=== PATIENT | female | born 1945 | race Caucasian/White ===

== ENCOUNTER → 2017-06-12 | Outpatient (CLI) | payer MEDICARE ==
--- NOTE | 2017-06-12 10:43 | US ---
EXAMINATION TYPE: US carotid duplex BILAT DATE OF EXAM: 06/12/2017 COMPARISON: NONE CLINICAL HISTORY: R42 dizziness I10 htn. EXAM MEASUREMENTS: RIGHT: Peak Systolic Velocity (PSV) cm/sec ----- Right CCA: 65.5 ----- Right ICA: 85.5 ----- Right ECA: 108.8 ICA/CCA ratio: 1.3 RIGHT: End Diastole cm/sec ----- Right CCA: 12.3 ----- Right ICA: 15.4 ----- Right ECA: 8.3 LEFT: Peak Systolic Velocity (PSV) cm/sec ----- Left CCA: 73.2 ----- Left ICA: 121.4 ----- Left ECA: 124.5 ICA/CCA ratio: 1.7 LEFT: End Diastole cm/sec ----- Left CCA: 15.6 ----- Left ICA: 23.9 ----- Left ECA: 8.9 VERTEBRALS (direction of flow): Right Vertebral: Antegrade Left Vertebral: Antegrade Pulsatile vessels making exam somewhat technically difficult, moderate plaque, no significant stenosi s seen. Grayscale, color Doppler, spectral Doppler imaging performed of the carotid arteries. IMPRESSION: No hemodynamic significant stenosis of the proximal internal carotid arteries bilaterall y by Doppler criteria, an indirect measurement of carotid stenosis
--- NOTE | 2017-06-13 07:03 | ECHOF ---
Referral Reason:R42 dizziness I10 htn MEASUREMENTS -------- HEIGHT: 165.1 cm WEIGHT: 83.9 kg BP: 143/69 RVIDd: 2.3 cm (< 3.3) IVSd: 1.3 cm (0.6 - 1.1) LVIDd: 3.3 cm (3.9 - 5.3) LVPWd: 1.2 cm (0.6 - 1.1) IVSs: 1.7 cm LVIDs: 2.4 cm LVPWs: 1.4 cm LA Diam: 3.1 cm (2.7 - 3.8) LAESV Index (A-L): 14.49 ml/m Ao Diam: 2.9 cm (2.0 - 3.7) AV Cusp: 1.8 cm (1.5 - 2.6) MV EXCURSION: 13.059 mm (> 18.000) MV EF SLOPE: 28 mm/s (70 - 150) EPSS: 0.5 cm MV E Hasmukh: 0.59 m/s MV DecT: 337 ms MV A Hasmukh: 0.94 m/s MV E/A Ratio: 0.63 FINDINGS -------- Sinus rhythm. This was a technically good study. The left ventricular size is normal. There is mild concentric left ventricular hypertrophy. Overall left ventricular systolic function is normal with, an EF between 55 - 60 %. The right ventricle is normal in size and function. Normal LA size by volume 22+/-6 ml/m2. The right atrium is normal in size. There is mild aortic valve sclerosis. Mild mitral annular calcification present. The tricuspid valve appears structurally normal. Trace/mild (physiologic) pulmonic regurgitation. The aortic root size is normal. Normal inferior vena cava with normal inspiratory collapse consistent with estimated right atrial pressure of 5 mmHg. There is no pericardial effusion. CONCLUSIONS -------- 1. Sinus rhythm. 2. Mild mitral annular calcification present. 3. The tricuspid valve appears structurally normal. 4. Trace/mild (physiologic) pulmonic regurgitation. 5. The aortic root size is normal. 6. Normal inferior vena cava with normal inspiratory collapse consistent with estimated right atrial pressure of 5 mmHg. 7. There is no pericardial effusion. 8. This was a technically good study. 9. The left ventricular size is normal. 10. There is mild concentric left ventricular hypertrophy. 11. Overall left ventricular systolic function is normal with, an EF between 55 - 60 %. 12. The right ventricle is normal in size and function. 13. Normal LA size by volume 22+/-6 ml/m2. 14. The right atrium is normal in size. 15. There is mild aortic valve sclerosis. [employer] SUPERVISOR: Lesley Jalloh RDCS
== END | disposition home or self-care (01) ==
LOC: RADECHMAIN 08:27 → EEVIPCON 08:30
PROVIDERS: ATTEND Family Medicine
DX: I34.8 Other nonrheumatic mitral valve disorders (principal); I35.8 Other nonrheumatic aortic valve disorders; I51.7 Cardiomegaly; I10 Essential (primary) hypertension; R53.83 Other fatigue; Z72.0 Tobacco use
CPT/HCPCS: 93306; 93880

== ENCOUNTER → 2017-12-20 | Outpatient (CLI) | payer MEDICARE ==
[2017-12-20 08:47] LABS: Basophils % (A) 0 %; Eosinophils # (A) 0.4 k/uL (0-0.7); Eosinophils % (A) 6 %; HCT 45.3 % (34.0-46.0); HGB 14.7 gm/dL (11.4-16.0); Lymphocytes # (A) 1.8 k/uL (1.0-4.8); Lymphocytes % (A) 27 %; MCH 30.9 pg (25.0-35.0); MCHC 32.5 g/dL (31.0-37.0); MCV 94.9 fL (80.0-100.0); Mean Platelet Volume 8.5; Monocytes # (A) 0.4 k/uL (0-1.0); Monocytes % (A) 6 %; Neutrophils # (A) 4.1 k/uL (1.3-7.7); Neutrophils % (A) 59 %; Platelet Count 213 k/uL (150-450); RBC 4.77 m/uL (3.80-5.40); RDW 13.4 % (11.5-15.5); WBC 6.9 k/uL (3.8-10.6)
[2017-12-20 09:15] LABS: Albumin 4.1 g/dL (3.5-5.0); Calcium 9.7 mg/dL (8.4-10.2); Potassium 4.7 mmol/L (3.5-5.1); Total Bilirubin 0.6 mg/dL (0.2-1.3); Total Protein 7.7 g/dL (6.3-8.2)
--- NOTE | 2017-12-20 10:29 | CT ---
EXAMINATION TYPE: CT abdomen pelvis w con DATE OF EXAM: 12/20/2017 COMPARISON: NONE HISTORY: Change in bowel habits CT DLP: 1010 mGycm CONTRAST: CT scan of the abdomen and pelvis is performed with Oral Contrast and with IV Contrast, patient injec ibis with 100 mL of Isovue 300. FINDINGS: LUNG BASES-: No visible nodule. No infiltrate. LIVER/GB: Cholecystectomy clips noted. No space occupying hepatic lesion. Biliary tree is of shawna l caliber. PANCREAS: No inflammation. No distinct mass. SPLEEN: No splenic enlargement. No lesion seen. ADRENALS: No nodule. No thickening. KIDNEYS/BLADDER: No hydronephrosis. No nephrolithiasis. No distinct renal mass. Urinary bladder g rossly unremarkable. BOWEL: Normal appendix. Normal bowel caliber. No inflammation. Mild fecal stasis. Sigmoid diverticu losis without diverticulitis. GENITAL ORGANS: Nonspecific cyst left ovary measuring 1.7 cm. Uterus and right ovary are unremarkabl e. LYMPH NODES: No greater than 1cm abdominal or pelvic lymph nodes are appreciated. AORTA: No significant abnormality. OSSEOUS STRUCTURES: No significant abnormality is seen. OTHER: No significant additional abnormality is seen. IMPRESSION: 1. Mild fecal stasis. 2. Nonspecific left ovarian cyst. Consider ultrasound correlation.
== END ==
LOC: RADCTMAIN 08:20
PROVIDERS: ATTEND Family Medicine
DX: I10 Essential (primary) hypertension (principal); R19.4 Change in bowel habit; R63.4 Abnormal weight loss; R19.7 Diarrhea, unspecified; N83.202 Unspecified ovarian cyst, left side
CPT/HCPCS: 80061; 80053; 85025; 74177; 36415; Q9967

== ENCOUNTER → 2017-12-25 | Outpatient (CLI) | payer MEDICARE ==
--- NOTE | 2017-12-25 13:18 | XR ---
EXAMINATION TYPE: XR chest 2V DATE OF EXAM: 12/25/2017 COMPARISON: NONE HISTORY: Shortness of breath TECHNIQUE: Frontal and lateral views of the chest are obtained. FINDINGS: Scattered senescent parenchymal changes noted. Hyperinflation compatible with COPD. Right infrahilar density may reflect chronic postinflammatory change. Heart size is stable. Mediastinal structures are stable and grossly unremarkable. No evidence for hilar prominence. Degenerative changes dorsal spine. IMPRESSION: 1. No evidence for acute pulmonary disease.
== END | disposition home or self-care (01) ==
LOC: RADXRMAIN 10:19
PROVIDERS: ATTEND Surgery
DX: Z01.818 Encounter for other preprocedural examination (principal); I48.91 Unspecified atrial fibrillation
CPT/HCPCS: 71046; 93005

== ENCOUNTER → 2018-10-29 | Outpatient (CLI) | payer MEDICARE ==
[2018-10-29 08:45] LABS: Basophils % (A) 1 %; Eosinophils # (A) 0.4 k/uL (0-0.7); Eosinophils % (A) 5 %; HCT 45.8 % (34.0-46.0); HGB 15.3 gm/dL (11.4-16.0); Lymphocytes # (A) 1.9 k/uL (1.0-4.8); Lymphocytes % (A) 27 %; MCH 32.5 pg (25.0-35.0); MCHC 33.4 g/dL (31.0-37.0); MCV 97.4 fL (80.0-100.0); Mean Platelet Volume 8.4; Monocytes # (A) 0.5 k/uL (0-1.0); Monocytes % (A) 6 %; Neutrophils % (A) 57 %; Platelet Count 174 k/uL (150-450); RDW 13.7 % (11.5-15.5); WBC 7.1 k/uL (3.8-10.6)
[2018-10-29 08:59] LABS: Albumin 3.9 g/dL (3.5-5.0); Calcium 9.7 mg/dL (8.4-10.2); Potassium 3.9 mmol/L (3.5-5.1); Total Bilirubin 0.5 mg/dL (0.2-1.3); Total Protein 7.4 g/dL (6.3-8.2)
--- NOTE | 2018-10-29 09:18 | CTL ---
EXAMINATION TYPE: CT Low Dose Lung DATE OF EXAM ORDERED: 10/29/2018 HISTORY: . Lung cancer screening CT DLP: 65.[address] CTDI: 1.8 mGy Automated exposure control for dose reduction was used. SCREENING VISIT: Initial COMPARISON: None TECHNIQUE: Low dose computed tomography scan was performed through the chest at 1 mm thick sections a nd reconstructed images in the coronal plane at [address] DIAGNOSTIC QUALITY: Satisfactory FINDINGS: LUNG NODULES: None. LUNGS: COPD: Severity: Mild Fibrosis: Severity: Mild Lymph nodes: None Other findings: None RIGHT PLEURAL SPACE: Effusion: None Calcification: None Thickening: Minimal pleural thickening is adjacent to old right sixth and seventh rib fractures. 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 Supraclavicular region: Normal Other: The ascending thoracic aorta at the level the main pulmonary artery is 3.3 cm. The main pulmon rhoda artery the bifurcation is 3.2 cm. IMPRESSION: 1. No suspicious changes. 2. Mild increased peripheral lung markings through the bilateral lung wasserman could be some early pulm onary fibrosis. FOLLOW UP CT CHEST RECOMMENDATION: Low-dose CT per screening protocol CT LUNG RAD: Lung-Rad 2 Benign Appearance or Behavior
== END | disposition home or self-care (01) ==
LOC: RADCTMAIN 07:36
PROVIDERS: ATTEND Family Medicine
DX: Z12.2 Encounter for screening for malignant neoplasm of respiratory organs (principal); R91.8 Other nonspecific abnormal finding of lung field; I10 Essential (primary) hypertension; Z87.891 Personal history of nicotine dependence
CPT/HCPCS: 80053; 85025; 36415; G0297

== ENCOUNTER → 2021-01-12 | Outpatient (CLI) | payer MEDICARE ==
--- NOTE | 2021-01-12 14:23 | CTL ---
EXAMINATION TYPE: CT Low Dose Lung DATE OF EXAM ORDERED: 01/12/2021 HISTORY: Long-term tobacco use. Lung cancer screening CT DLP: 78.[address] CTDI: 2.3 mGy Automated exposure control for dose reduction was used. SCREENING VISIT: First step to baseline COMPARISON: Prior low dose lung CT October 29, 2018 TECHNIQUE: Low dose computed tomography scan was performed through the chest at 1 mm thick sections a nd reconstructed images in the coronal plane at [address] DIAGNOSTIC QUALITY: Limited, but interpretable FINDINGS: LUNG NODULES: Present, detailed below: Stable 2 to 3 mm right middle lobe calcified nodule or granuloma axial image 190. Adjacent to this st able nodular consolidation or scarring axial image 186 for reference. Stable 4 mm calcified right upper lung nodule or granuloma axial image 112. Scattered noncalcified pu lmonary micronodules, for reference coronal image 39 series 10 lateral aspect left mid lung correspon ding to axial image 117 LUNGS: COPD: Severity: Mild Fibrosis: Severity: Fairly moderate Lymph nodes: No new greater than 1 cm Other findings: Enlarged pulmonary arteries, CT findings consistent with underlying pulmonary artery hypertension. RIGHT PLEURAL SPACE: Effusion: None Calcification: None Thickening: Stable focal pleural thickening adjacent to the old right lateral seventh and eighth rib fractures. Pneumothorax: None LEFT PLEURAL SPACE: Effusion: None Calcification: None Thickening: None Pneumothorax: None HEART: Heart Size: Normal Coronary calcification: Moderate Pericardial effusion: None OTHER FINDINGS: Upper abdomen: Cholecystectomy clips. Bony thorax: S-shaped scoliotic curvature redemonstrated. Supraclavicular region: None. Other: Mild to moderate calcified plaque of the aorta IMPRESSION: Evidence of old granulomatous disease. Stable scattered small nodules. CT LUNG RAD AND CT CHEST RECOMMENDATION: Lung-Rad 2 Benign Appearance or Behavior: Continue annual sc reening with LDCT in 12 months. S Modifier (other clinically significant findings): None
--- NOTE | 2021-01-16 11:25 | MM ---
Reason for exam: screening (asymptomatic). Last mammogram was performed 5 years and 9 months ago. History: Patient is postmenopausal. Family history of breast cancer in mother. Took estrogen for 6 months. Physical Findings: A clinical breast exam by your physician is recommended on an annual basis and results should be correlated with mammographic findings. MG 3D Screening Mammo W/Cad Bilateral CC and MLO view(s) were taken. Prior study comparison: April 26, 2015, mammogram, performed at [facility]. There are scattered fibroglandular densities. No significant changes when compared with prior studies. ASSESSMENT: Benign, BI-RAD 2 RECOMMENDATION: Routine screening mammogram of both breasts in 1 year.
== END | disposition home or self-care (01) ==
LOC: RADCTMAIN 13:27
PROVIDERS: ATTEND Family Medicine
DX: Z12.31 Encounter for screening mammogram for malignant neoplasm of breast (principal); Z12.2 Encounter for screening for malignant neoplasm of respiratory organs; Z78.0 Asymptomatic menopausal state; Z80.3 Family history of malignant neoplasm of breast
CPT/HCPCS: 71271; 77063; 77067

== ENCOUNTER 2021-02-21 12:55 | Inpatient (IN) | payer MEDICARE ==
[2021-02-21 14:07] LABS: Basophils % (A) 0 %; Eosinophils # (A) 0.2 k/uL (0-0.7); Eosinophils % (A) 3 %; HCT 38.3 % (34.0-46.0); HGB 13.5 gm/dL (11.4-16.0); Lymphocytes # (A) 1.5 k/uL (1.0-4.8); Lymphocytes % (A) 18 %; MCH 33.2 pg (25.0-35.0); MCHC 35.2 g/dL (31.0-37.0); MCV 94.4 fL (80.0-100.0); Mean Platelet Volume 8.9; Monocytes # (A) 0.5 k/uL (0-1.0); Monocytes % (A) 6 %; Neutrophils # (A) 5.8 k/uL (1.3-7.7); Neutrophils % (A) 72 %; Platelet Count 212 k/uL (150-450); RBC 4.06 m/uL (3.80-5.40); RDW 13.3 % (11.5-15.5); WBC 8.1 k/uL (3.8-10.6)
[2021-02-21] MEDS ORDERED: MORPHINE SULFATE 4 MG/ML SYRINGE IVP STA (14:10)
[2021-02-21 14:17] LABS: Potassium 2.9 mmol/L (3.5-5.1)
[2021-02-21 14:18] LABS: Albumin 3.9 g/dL (3.5-5.0); Calcium 9.4 mg/dL (8.4-10.2); Total Bilirubin 0.6 mg/dL (0.2-1.3); Total Protein 6.8 g/dL (6.3-8.2)
[2021-02-21] MEDS ORDERED: SODIUM CHLORIDE 0.9% 500 ML 500 ML IV ONE (14:22)
[2021-02-21] MEDS ORDERED: POTASSIUM CHLORIDE ER 20 MEQ TAB.ER PO STA (14:22)
--- NOTE | 2021-02-21 14:30 | CT ---
EXAMINATION TYPE: CT brain tony lemus DATE OF EXAM: 02/21/2021 COMPARISON: None HISTORY: Fall today. CT DLP: [address] of the brain was performed. The ventricles, basal cisterns and sulci overlying the cerebral convexities demonstrate mild enlargem ent. There is no evidence for intracranial hemorrhage or sulcal effacement. There is decreased attenuatio n about the periventricular white matter and deep white matter of both cerebral hemispheres, compatib le with chronic small vessel ischemia. No mass effects are seen. If symptoms persist consider MRI. Osseous calvarium is intact. IMPRESSION: 1. Age related atrophic and chronic small vessel ischemic change without acute intracranial process seen at this time. CT Cervical Spine: Unenhanced CT of the cervical spine was performed with bone and soft tissue window settings submitted . Coronal and sagittal reconstruction is obtained. There is normal alignment and prevertebral soft tissues. No evidence for acute cervical fracture . Th ere is reversal of the normal cervical lordosis. Scattered degenerative disc disease and spondylosis . Biapical scarring. IMPRESSION: 1. No evidence for acute fracture or subluxation of the cervical spine.
[2021-02-21] MEDS: SODIUM CHLORIDE 0.9% 1,000 ML IV SCH (15:01)
[2021-02-21] MEDS: POTASSIUM CHLORIDE 10 MEQ in WATER FOR INJECTION 1 100ML.BAG IVPB SCH ×2 (15:03→16:11)
--- NOTE | 2021-02-21 15:23 | XR ---
EXAMINATION TYPE: XR elbow complete RT DATE OF EXAM: 02/21/2021 CLINICAL HISTORY: pain TECHNIQUE: Frontal, lateral and oblique images of the right elbow are obtained. COMPARISON: None. FINDINGS: There is no acute fracture/dislocation evident of the elbow. No abnormal fat pad signs ar e seen. The overlying soft tissue appears unremarkable. IMPRESSION: There is no acute fracture or dislocation of the elbow. ICD 10 NO FRACTURE, INITIAL EVALUATION
--- NOTE | 2021-02-21 15:32 | XR ---
EXAMINATION TYPE: XR knee complete RT DATE OF EXAM: 02/21/2021 CLINICAL HISTORY: pain TECHNIQUE: Three views of the right knee are obtained. COMPARISON: None. FINDINGS: There is no acute fracture/dislocation. The tri-compartment joint spaces appear mildly na rrowed. The overlying soft tissue appears unremarkable. IMPRESSION: There is no acute fracture or dislocation.ICD 10 NO FRACTURE, INITIAL EVALUATION
--- NOTE | 2021-02-21 15:35 | XR ---
AP pelvis and right femur HISTORY: Trauma and pain Single frontal view of the pelvis, frontal and lateral views the right femur and 4 images There is a right intertrochanteric proximal femoral fracture with displacement, no dislocation. Patie nt is rotated. Bone mineralization is reduced. Probable vascular calcifications are present within th e pelvis. Degenerative disc changes noted in the lower lumbar spine. There are injection granuloma andrade spected in the gluteal region. impression: Proximal right femoral fracture
[2021-02-21] MEDS ORDERED: NALOXONE 0.4 MG/ML 1 ML VIAL IV PRN (16:12)
--- NOTE | 2021-02-21 16:13 | ED ---
Fall HPI - General Chief Complaint: Fall Stated Complaint: Fall Time Seen by Provider: 02/21/21 13:35 Source: patient Mode of arrival: EMS - History of Present Illness Initial Comments: 75yo female presenting for trip and fall. pt was in parking lot when she tripped over a raised edge. she fell onto right side. denies head injury. she states pain made her nauseated. denies blood thinners. admit to right thigh pain, knee pain. denies UE pain, neck pain, headache, trauma to chest or abdomen, back. patient denies loss of sensation or coolness of extremity. pt states she couldnt put pressure on her right leg after. - Related Data Home Medications Medication Instructions Recorded Confirmed Donepezil HCl [Aricept] 5 mg PO DAILY 02/21/21 02/21/21 Levothyroxine Sodium [Synthroid] 25 mcg PO DAILY 02/21/21 02/21/21 Meclizine [Antivert] 12.5 mg PO DAILY PRN 02/21/21 02/21/21 Meloxicam [Mobic] 15 mg PO DAILY 02/21/21 02/21/21 Pravastatin Sodium 80 mg PO HS 02/21/21 02/21/21 Sertraline [Zoloft] 50 mg PO DAILY 02/21/21 02/21/21 hydroCHLOROthiazide 50 mg PO DAILY 02/21/21 02/21/21 Allergies Allergy/AdvReac Type Severity Reaction Status Date / Time No Known Allergies Allergy Verified 02/21/21 16:42 Review of Systems ROS Statement: Those systems with pertinent positive or pertinent negative responses have been documented in the HPI. ROS Other: All systems not noted in ROS Statement are negative. Past Medical History Past Medical History: Hypertension, Thyroid Disorder History of Any Multi-Drug Resistant Organisms: None Reported Past Surgical History: Cholecystectomy Past Psychological History: No Psychological Hx Reported Smoking Status: Current every day smoker Past Alcohol Use History: None Reported Past Drug Use History: None Reported General Exam Limitations: no limitations Eye exam: Present: normal appearance, PERRL, EOMI ENT exam: Present: normal exam, normal oropharynx, TM's normal bilaterally Neck exam: Present: normal inspection. Absent: tenderness Respiratory exam: Present: normal lung sounds bilaterally Cardiovascular Exam: Present: regular rate, normal rhythm, normal heart sounds GI/Abdominal exam: Present: soft, normal bowel sounds. Absent: distended, tenderness, guarding Rectal exam: Present: deferred Right Hip exam: Present: tenderness Knee exam: Present: tenderness, swelling. Absent: normal inspection Lower Leg exam: Present: normal inspection Ankle exam: Present: normal inspection Foot/Toe exam: Present: normal inspection Course Vital Signs 02/21/21 02/21/21 13:01 14:58 Temperature 98.1 F Pulse Rate 85 75 Respiratory 18 18 Rate Blood Pressure 145/77 124/69 O2 Sat by Pulse 94 L 95 Oximetry Medical Decision Making - Medical Decision Making pt found to have hypokalemia and leonel. pt had right proximal femur fractured. adm itted orthopedic service, Dr. Toure,medicine on consult. patient agreeable to admission. Dr Ahuja spoke with patietn and admitting providers. - Lab Data Result diagrams: 02/21/21 13:51 02/21/21 13:51 Lab Results 02/21/21 02/21/21 02/21/21 Range/Units 13:51 13:51 13:51 WBC 8.1 (3.8-10.6) k/uL RBC 4.06 (3.80-5.40) m/uL Hgb 13.5 (11.4-16.0) gm/dL Hct 38.3 (34.0-46.0) % MCV 94.4 (80.0-100.0) fL MCH 33.2 (25.0-35.0) pg MCHC 35.2 (31.0-37.0) g/dL RDW 13.3 (11.5-15.5) % Plt Count 212 (150-450) k/uL MPV 8.9 Neutrophils % 72 % Lymphocytes % 18 % Monocytes % 6 % Eosinophils % 3 % Basophils % 0 % Neutrophils # 5.8 (1.3-7.7) k/uL Lymphocytes # 1.5 (1.0-4.8) k/uL Monocytes # 0.5 (0-1.0) k/uL Eosinophils # 0.2 (0-0.7) k/uL Basophils # 0.0 (0-0.2) k/uL Sodium 136 L (137-145) mmol/L Potassium 2.9 L (3.5-5.1) mmol/L Chloride 102 (98-107) mmol/L Carbon Dioxide 27 (22-30) mmol/L Anion Gap 7 mmol/L BUN 27 H (7-17) mg/dL Creatinine 1.40 H (0.52-1.04) mg/dL Est GFR (CKD-EPI)AfAm 42 (>60 ml/min/1.73 sqM) Est GFR (CKD-EPI)NonAf 37 (>60 ml/min/1.73 sqM) Glucose 116 H (74-99) mg/dL Calcium 9.4 (8.4-10.2) mg/dL Magnesium 1.5 L (1.6-2.3) mg/dL Total Bilirubin 0.6 (0.2-1.3) mg/dL AST 25 (14-36) U/L ALT 11 (4-34) U/L Alkaline Phosphatase 67 (38-126) U/L Total Protein 6.8 (6.3-8.2) g/dL Albumin 3.9 (3.5-5.0) g/dL Disposition Clinical Impression: Fall, Fracture of proximal end of right femur, Hypokalemia, LEONEL (acute kidney injury) Disposition: ADMITTED IP TO THIS [facility] Condition: Stable Is patient prescribed a controlled substance at d/c from ED?: No Referrals: Esvin Riley MD [Primary Care Provider] - 1-2 days Time of Disposition: 16:12 Decision to Admit Reason: Admit from EC Decision Date: 02/21/21 Decision Time: 16:12
--- NOTE | 2021-02-21 21:16 | XR ---
EXAMINATION TYPE: XR chest 1V portable DATE OF EXAM: 02/21/2021 COMPARISON: 12/25/2017 HISTORY: Preop TECHNIQUE: FINDINGS: There is coarse interstitial density in the lungs. Heart is top normal in size. There is no heart failure. There are no pleural effusions. Thoracic aorta is atheromatous. IMPRESSION: Pulmonary interstitial fibrosis without change. No heart failure seen.
[2021-02-21] MEDS: MORPHINE SULFATE 4 MG/ML SYRINGE IVP PRN (21:53)
[2021-02-21] MEDS: PRAVASTATIN SODIUM 80 MG TAB PO SCH (21:54)
[2021-02-21] MEDS: ENOXAPARIN 40 MG/0.4 ML SYRINGE SQ SCH (21:54)
--- NOTE | 2021-02-21 22:18 | P.CONS ---
History of Present Illness - Reason for Consult Consult date: 02/21/21 Medical management Requesting physician: Bryce Toure - Chief Complaint Right femur fracture - History of Present Illness Consultation: This is a 75-year-old patient, follows with Dr. Riley. Chronic stable medical conditions include hypertension, hypothyroid, chronic nicotine dependence. Patient is walking and tripped falling on the right hip. Taken to the local hospital was found to have right femoral neck fracture. Some bruising on the right elbow. This was purely mechanical fall. Denies any cardiac history. She is able to walk about 2 blocks. Occasionally wheezing from smoking. No prior cardiac history. No chest pain no shortness of breath otherwise. Review of systems: GEN.: None EYES: None HEENT: None NECK: None RESPIRATORY: Mild wheezing CARDIOVASCULAR: None GASTROINTESTINAL: None GENITOURINARY: Urinary stress incontinence] MUSCULOSKELETAL: Joint pains LYMPHATICS: None HEMATOLOGICAL: None PSYCHIATRY: None NEUROLOGICAL: None Past medical history to include: Hypertension, hypothyroid Social history: Smokes a pack a day for close to 60 years. Lives alone. No alcohol. Physical examination: VITAL SIGNS: 98.1, 85, 18, 145/77, 94% room air GENERAL: BMI 26.8, laying in bed, awake. EYES: Pupils equal. Conjunctiva normal. HEENT: External appearance of nose and ears normal, oral cavity grossly normal. NECK: JVD not raised; masses not palpable. HEART: First and second heart sounds are normal; no edema. LUNGS:[ Respiratory rate increased; decreased breath sounds and mild wheezing. ABDOMEN: Soft, nontender, liver spleen not palpable, no masses palpable. PSYCH: Alert and oriented x3; mood and affect normal. MUSCULAR skeletal: Evidence of OA. Right lower extremities externally rotated and short NEUROLOGICAL: Cranial nerves grossly intact; no facial asymmetry, power and sensation grossly intact. LYMPHATICS: No lymph nodes palpable in the axilla and neck INVESTIGATIONS, reviewed in the clinical context: WBC 8.1 hemoglobin 13.5 platelets 212 potassium 2.9 bun 27 creatinine 1.4 magnesia 1.5 Coronavirus [PCR]-not detected Chest x-ray film personally reviewed by me-interstitial fibrosis. Femur x-ray: Right femoral neck fracture. Assessment and plan: -Right femoral neck fracture after patient tripped and fell. -Primary osteoarthritis multiple joints bilateral -Hyperlipidemia Continue pravastatin -Mild cognitive impairment Continue with Aricept -Hypothyroid Continue with Synthroid -COPD in a current smoker *DuoNeb 4 times a day, inhaled steroids -Chronic interstitial pulmonary fibrosis Bronchodilators and inhaled steroids -Chronic nicotine dependence, patient cigarette smoker Nicotine patch Cardiopulmonary perioperative risk assessment: Patient has no active cardiac symptoms. Has a good excess tolerance able to walk about 2 blocks. Patient is a smoker. This is a relatively low bloodloss surgery. This was the patient had mild to-moderate cardiac risk. Patient does not need any further testing except for a baseline EKG. Patient is medically stable to proceed for surgery, discussed with the patient Thank you Dr. Toure Past Medical History Past Medical History: Hypertension, Thyroid Disorder History of Any Multi-Drug Resistant Organisms: None Reported Past Surgical History: Back Surgery, Cholecystectomy, Orthopedic Surgery Past Anesthesia/Blood Transfusion Reactions: No Reported Reaction Past Psychological History: No Psychological Hx Reported Smoking Status: Current every day smoker Past Alcohol Use History: None Reported Past Drug Use History: None Reported - Past Family History Mother Family Medical History: Cancer Additional Family Medical History / Comment(s): Breast Medications and Allergies Home Medications Medication Instructions Recorded Confirmed Type Donepezil HCl [Aricept] 5 mg PO DAILY 02/21/21 02/21/21 History Levothyroxine Sodium [Synthroid] 25 mcg PO DAILY 02/21/21 02/21/21 History Meclizine [Antivert] 12.5 mg PO DAILY PRN 02/21/21 02/21/21 History Meloxicam [Mobic] 15 mg PO DAILY 02/21/21 02/21/21 History Pravastatin Sodium 80 mg PO HS 02/21/21 02/21/21 History Sertraline [Zoloft] 50 mg PO DAILY 02/21/21 02/21/21 History hydroCHLOROthiazide 50 mg PO DAILY 02/21/21 02/21/21 History Allergies Allergy/AdvReac Type Severity Reaction Status Date / Time No Known Allergies Allergy Verified 02/21/21 16:42 Physical Exam Vitals: Vital Signs Temp Pulse Resp BP Pulse Ox 02/21/21 18:46 98.0 F 64 18 105/63 94 L 02/21/21 14:58 75 18 124/69 95 02/21/21 13:01 98.1 F 85 18 145/77 94 L Intake and Output 02/21/21 02/21/21 02/21/21 06:59 14:59 22:59 Other: Weight 72.938 kg 72.938 kg Results CBC & Chem 7: 02/21/21 13:51 02/21/21 13:51 Labs: Abnormal Lab Results - Last 24 Hours (Table) 02/21/21 02/21/21 Range/Units 13:51 13:51 Sodium 136 L (137-145) mmol/L Potassium 2.9 L (3.5-5.1) mmol/L BUN 27 H (7-17) mg/dL Creatinine 1.40 H (0.52-1.04) mg/dL Glucose 116 H (74-99) mg/dL Magnesium 1.5 L (1.6-2.3) mg/dL
[2021-02-21] MEDS: IPRATROPIUM-ALBUTEROL 3 ML NEB INHALATION SCH (23:25)
[2021-02-21] MEDS: BUDESONIDE 1 MG/2 ML NEBU INHALATION SCH (23:25)
[2021-02-22] MEDS: SODIUM CHLORIDE 0.9% 1,000 ML IV SCH ×2 (03:27→20:28)
[2021-02-22] MEDS: LEVOTHYROXINE 25 MCG TAB PO SCH (05:31)
[2021-02-22] MEDS: IPRATROPIUM-ALBUTEROL 3 ML NEB INHALATION SCH ×4 (08:03→19:30)
[2021-02-22] MEDS: BUDESONIDE 1 MG/2 ML NEBU INHALATION SCH ×2 (08:03→19:30)
[2021-02-22] MEDS: SERTRALINE 50 MG TAB PO SCH (08:41)
[2021-02-22] MEDS: DONEPEZIL 5 MG TAB PO SCH (08:41)
[2021-02-22] MEDS: MORPHINE SULFATE 4 MG/ML SYRINGE IVP PRN ×2 (08:41→13:26)
[2021-02-22 12:00] LABS: African American GFR (CKD) 64 (>60 ml/min/1.73 sqM); Anion Gap 3 mmol/L; Blood Urea Nitrogen 16 mg/dL (7-17); Calcium 8.4 mg/dL (8.4-10.2); Carbon Dioxide 27 mmol/L (22-30); Chloride 108 mmol/L (98-107); Glucose 95 mg/dL (74-99); Non-African American GFR(CKD) 55 (>60 ml/min/1.73 sqM); Potassium 3.7 mmol/L (3.5-5.1); Sodium 138 mmol/L (137-145)
[2021-02-22 12:11] LABS: Partial Thromboplastin Time 23.7 sec (22.0-30.0); Prothrombin Time 10.6 sec (9.0-12.0)
--- NOTE | 2021-02-22 12:39 | P.HPOR ---
History of Present Illness H&P Date: 02/22/21 Chief Complaint: Right hip fracture Patient is a pleasant 75 show female seen at bedside this afternoon. She was admitted through the emergency department yesterday, 02/21/2021, evening after falling in a parking lot while she was shopping. She states her grandson pulled on her arm and she lost balance. She developed immediate right hip/leg pain and was transported to the emergency department. X-ray showed intertrochanteric right femur fracture. She continues to have pain at the right hip as expected. She denies any other complaints. She denies numbness or tingling. She denies calf pain. She denies fevers or chills or chest pain. She states she is a smoker. She denies being on blood thinners or diabetic medications. She has no other complaints. Review of Systems All systems: negative Constitutional: Denies chills, Denies fever Eyes: denies blurred vision, denies pain Ears, nose, mouth and throat: Denies headache, Denies sore throat Cardiovascular: Denies chest pain, Denies shortness of breath Respiratory: Denies cough Gastrointestinal: Denies abdominal pain, Denies diarrhea, Denies nausea, Denies vomiting Genitourinary: Denies dysuria, Denies hematuria Musculoskeletal: Denies myalgias Integumentary: Denies pruritus, Denies rash Neurological: Denies numbness, Denies weakness Psychiatric: Denies anxiety, Denies depression Endocrine: Denies fatigue, Denies weight change Past Medical History Past Medical History: Hypertension, Thyroid Disorder History of Any Multi-Drug Resistant Organisms: None Reported Past Surgical History: Back Surgery, Cholecystectomy, Orthopedic Surgery Past Anesthesia/Blood Transfusion Reactions: No Reported Reaction Past Psychological History: No Psychological Hx Reported Smoking Status: Current every day smoker Past Alcohol Use History: None Reported Past Drug Use History: None Reported - Past Family History Mother Family Medical History: Cancer Additional Family Medical History / Comment(s): Breast Medications and Allergies Home Medications Medication Instructions Recorded Confirmed Type Donepezil HCl [Aricept] 5 mg PO DAILY 02/21/21 02/21/21 History Levothyroxine Sodium [Synthroid] 25 mcg PO DAILY 02/21/21 02/21/21 History Meclizine [Antivert] 12.5 mg PO DAILY PRN 02/21/21 02/21/21 History Meloxicam [Mobic] 15 mg PO DAILY 02/21/21 02/21/21 History Pravastatin Sodium 80 mg PO HS 02/21/21 02/21/21 History Sertraline [Zoloft] 50 mg PO DAILY 02/21/21 02/21/21 History hydroCHLOROthiazide 50 mg PO DAILY 02/21/21 02/21/21 History Allergies Allergy/AdvReac Type Severity Reaction Status Date / Time No Known Allergies Allergy Verified 02/21/21 16:42 Physical Examination Inspection of the right lower extremity shows a shortened externally rotated right leg. There are no open wounds, lacerations, erythema or other deformity. Range of motion of the right hip is not tested due to the fracture. She has active range of motion that is painless at the knee, ankle and foot. Neurovascular status appears to be grossly intact throughout the right lower extremity with motor and sensation. Calf is soft and nontender. 2+ dorsalis pedis pulse and less than 2 second capillary refill is present. Results X-rays of the pelvis and right femur show minimally displaced intertrochanteric femur fracture. No fractures at the knee. - Labs Labs: Abnormal Lab Results - Last 24 Hours (Table) 02/21/21 02/21/21 02/22/21 Range/Units 13:51 13:51 11:20 Sodium 136 L (137-145) mmol/L Potassium 2.9 L (3.5-5.1) mmol/L Chloride 108 H (98-107) mmol/L BUN 27 H (7-17) mg/dL Creatinine 1.40 H (0.52-1.04) mg/dL Glucose 116 H (74-99) mg/dL Magnesium 1.5 L (1.6-2.3) mg/dL H & H 02/21/21 Range/Units 13:51 Hgb 13.5 (11.4-16.0) gm/dL Hct 38.3 (34.0-46.0) % Coagulation 02/22/21 Range/Units 11:20 INR 1.0 (<1.2) Result Diagrams: 02/21/21 13:51 02/22/21 11:20 - Diagnostic results Hip x-ray: report reviewed, image reviewed Assessment and Plan (1) Fracture of proximal end of right femur Narrative/Plan: Plan is to proceed with surgical intervention including closed reduction internal fixation of her right proximal femur fracture with a gamma nail and intramedullary hip screw. Patient understands the procedure including possible risks and complications as well as benefits. She desires to proceed. Patient has been reviewed with Dr. Toure. Preoperative clearance has been requested. She has been boarded and plan is to proceed this afternoon 02/22/2021. She'll resume routine postop orthopedic protocol and medical management after surgery and will likely need placement. Current Visit: Yes Status: Acute Code(s): S72.001A - FRACTURE OF UNSP PART OF NECK OF RIGHT FEMUR, INIT SNOMED Code(s): 354434932 Time with Patient: Less than 30
[2021-02-22] MEDS ORDERED: IV FLUID CONTINUATION 1,000 ML IV ONE (14:55)
[2021-02-22] MEDS ORDERED: ONDANSETRON 4 MG/2 ML VIAL ONE ×3 (15:10→15:58)
[2021-02-22] MEDS ORDERED: ONDANSETRON 4 MG/2 ML VIAL IVP ONE (15:11)
[2021-02-22] MEDS ORDERED: LACTATED RINGERS 1,000 ML IV ONE (15:56)
[2021-02-22] MEDS ORDERED: ePHEDrine SULFATE/0.9% NACL/PF 50 MG/5 ML SYRINGE IV ONE (15:58)
[2021-02-22] MEDS ORDERED: MIDAZOLAM 2 MG/2 ML VIAL ONE (15:58)
[2021-02-22] MEDS ORDERED: PHENYLEPHRINE-0.9% NACL SYG 1,000 MCG/10 ML SYRINGE ONE (15:58)
[2021-02-22] MEDS ORDERED: KETAMINE 10 MG/ML 20 ML VIAL ONE (15:58)
[2021-02-22] MEDS ORDERED: fentaNYL (PF) 50 MCG/ML 2 ML AMP ONE (15:58)
[2021-02-22] MEDS ORDERED: SODIUM CHLORIDE 0.9% 100 ML BAG ONE (15:58)
[2021-02-22] MEDS ORDERED: ceFAZolin 1,000 MG in SODIUM CHLORIDE 0.9% 1,000 ML IRRIGATION ONE (16:32)
[2021-02-22] MEDS ORDERED: diazePAM 5 MG TAB PO PRN (16:59)
[2021-02-22] MEDS ORDERED: HYDROmorphone 0.2 MG/1 ML SYRINGE IVP PRN (16:59)
[2021-02-22] MEDS ORDERED: ONDANSETRON 4 MG/2 ML VIAL IVP PRN (16:59)
[2021-02-22] MEDS ORDERED: ACETAMINOPHEN TAB 325 MG TAB PO PRN (16:59)
[2021-02-22] MEDS ORDERED: HYDROmorphone 0.5 MG/0.5 ML SYRINGE IVP PRN (16:59)
[2021-02-22] MEDS ORDERED: HYDROcodone/APAP 5-325MG 1 EACH TAB PO PRN (16:59)
[2021-02-22] MEDS ORDERED: TEMAZEPAM 15 MG CAP PO PRN (16:59)
[2021-02-22] MEDS ORDERED: MAGNESIUM HYDROXIDE 2,400 MG/10 ML CUP PO PRN (16:59)
[2021-02-22] MEDS ORDERED: traMADol 50 MG TAB PO PRN (16:59)
[2021-02-22] MEDS ORDERED: HYDROcodone/APAP 10-325MG 1 EACH TAB PO PRN (16:59)
--- NOTE | 2021-02-22 17:58 | XR ---
EXAMINATION TYPE: XR Hip Limited RT DATE OF EXAM: 02/22/2021 COMPARISON: NONE HISTORY: Postop hip surgery TECHNIQUE: Single view FINDINGS: There is intramedullary manuela and transverse screw fixing the intertrochanteric fracture of t he right femur in anatomic position. There are lateral skin antionette. IMPRESSION: No complicating process seen.
[2021-02-22] MEDS: PRAVASTATIN SODIUM 80 MG TAB PO SCH (20:29)
[2021-02-22] MEDS: ASPIRIN 81 MG PO SCH (20:29)
[2021-02-22] MEDS: ENOXAPARIN 40 MG/0.4 ML SYRINGE SQ SCH (20:29)
[2021-02-22] MEDS ORDERED: SENNOSIDES-DOCUSATE SODIUM 1 EACH TAB PO SCH (21:00)
--- NOTE | 2021-02-22 22:34 | P.PN ---
Progress Note - Text Progress Note Date: 02/22/21 - Chief Complaint Right femur fracture Consultation: This is a 75-year-old patient, follows with Dr. Riley. Chronic stable medical conditions include hypertension, hypothyroid, chronic nicotine dependence. Patient is walking and tripped falling on the right hip. Taken to the local hospital was found to have right femoral neck fracture. Some bruising on the right elbow. This was purely mechanical fall. Denies any cardiac history. She is able to walk about 2 blocks. Occasionally wheezing from smoking. No prior cardiac history. No chest pain no shortness of breath otherwise. Today: Sulfa patient this morning. Pending surgery this afternoon. Pain control. No new issues. Nothing by mouth. Review of systems: Was done for constitutional, cardiovascular, GI, pulmonary. relevant finding as above Active Medications Acetaminophen (Acetaminophen Tab 325 Mg Tab) 650 mg PO Q4HR PRN PRN Reason: Pain Scale 1 to 5 Hydrocodone Bitart/Acetaminophen (Hydrocodone/Apap 5-325mg 1 Each Tab) 1 each PO Q6HR PRN PRN Reason: Pain Scale 1 to 5 Hydrocodone Bitart/Acetaminophen (Hydrocodone/Apap 10-325mg 1 Each Tab) 1 each PO Q6H PRN PRN Reason: Pain Scale 6 to 10 Albuterol/Ipratropium (Ipratropium-Albuterol 3 Ml Neb) 3 ml INHALATION RT-QID [facility] Last Admin: 02/22/21 19:30 Dose: 3 ml Documented by: Aspirin (Aspirin 81 Mg) 81 mg PO BID [facility] Last Admin: 02/22/21 20:29 Dose: 81 mg Documented by: Budesonide (Budesonide 1 Mg/2 Ml Nebu) 1 mg INHALATION RT-BID [facility] Last Admin: 02/22/21 19:30 Dose: 1 mg Documented by: Diazepam (Diazepam 5 Mg Tab) 2.5 mg PO Q8HR PRN PRN Reason: Mild Spasms Donepezil HCl (Donepezil 5 Mg Tab) 5 mg PO DAILY [facility] Last Admin: 02/22/21 08:41 Dose: 5 mg Documented by: Enoxaparin Sodium (Enoxaparin 40 Mg/0.4 Ml Syringe) 40 mg SQ DAILY@2100 [facility] Last Admin: 02/22/21 20:29 Dose: 40 mg Documented by: Famotidine (Famotidine 20 Mg Tab) 20 mg PO DAILY [facility] Hydromorphone HCl (Hydromorphone 0.2 Mg/1 Ml Syringe) 0.2 mg IVP Q3HR PRN PRN Reason: Pain Scale 4 to 6 Hydromorphone HCl (Hydromorphone 0.5 Mg/0.5 Ml Syringe) 0.125 mg IVP Q3HR PRN PRN Reason: Pain Scale 1 to 3 Hydromorphone HCl (Hydromorphone 0.5 Mg/0.5 Ml Syringe) 0.5 mg IVP Q3HR PRN PRN Reason: Pain Scale 7 to 10 Sodium Chloride (Saline 0.9%) 1,000 mls @ 75 mls/hr IV .[id number] [facility] Last Admin: 02/22/21 20:28 Dose: Not Given Documented by: Cefazolin Sodium 2 gm/ Sodium (Chloride) 50 mls @ 100 mls/hr IVPB Q8HR [facility] Stop: 02/23/21 08:29 Levothyroxine Sodium (Levothyroxine 25 Mcg Tab) 25 mcg PO DAILY@0630 [facility] Last Admin: 02/22/21 05:31 Dose: 25 mcg Documented by: Magnesium Hydroxide (Magnesium Hydroxide 2,400 Mg/10 Ml Cup) 2,400 mg PO DAILY PRN PRN Reason: Constipation Morphine Sulfate (Morphine Sulfate 4 Mg/Ml Syringe) 4 mg IVP Q4HR PRN PRN Reason: Pain Last Admin: 02/22/21 13:26 Dose: 4 mg Documented by: Multivitamins (Multivitamins, Thera 1 Each Tab) 1 each PO DAILY@1200 [facility] Naloxone HCl (Naloxone 0.4 Mg/Ml 1 Ml Vial) 0.2 mg IV Q2M PRN PRN Reason: Opioid Reversal Ondansetron HCl (Ondansetron 4 Mg/2 Ml Vial) 4 mg IVP Q8HR PRN PRN Reason: Nausea And Vomiting Pravastatin Sodium (Pravastatin Sodium 80 Mg Tab) 80 mg PO [facility] Last Admin: 02/22/21 20:29 Dose: 80 mg Documented by: Senna/Docusate Sodium (Sennosides-Docusate Sodium 1 Each Tab) 2 each PO HS [facility] Last Admin: 02/22/21 20:29 Dose: 2 each Documented by: Sertraline HCl (Sertraline 50 Mg Tab) 50 mg PO DAILY [facility] Last Admin: 02/22/21 08:41 Dose: 50 mg Documented by: Temazepam (Temazepam 15 Mg Cap) 15 mg PO HS PRN PRN Reason: Insomnia Tramadol HCl (Tramadol 50 Mg Tab) 50 mg PO Q6HR PRN PRN Reason: Pain Scale 1 to 5 Past medical history to include: Hypertension, hypothyroid Social history: Smokes a pack a day for close to 60 years. Lives alone. No alcohol. Physical examination: VITAL SIGNS: 98.4, 70, 16, 103/62, 95% room air GENERAL: BMI 26.8, laying in bed, awake. EYES: Pupils equal. Conjunctiva normal. HEENT: External appearance of nose and ears normal, oral cavity grossly normal. NECK: JVD not raised; masses not palpable. HEART: First and second heart sounds are normal; no edema. LUNGS:[ Respiratory rate increased; decreased breath sounds and mild wheezing. ABDOMEN: Soft, nontender, liver spleen not palpable, no masses palpable. PSYCH: Alert and oriented x3; mood and affect normal. MUSCULAR skeletal: Evidence of OA. Right lower extremities externally rotated and short INVESTIGATIONS, reviewed in the clinical context: February 22: Potassium 2.7 creatinine 1 WBC 8.1 hemoglobin 13.5 platelets 212 potassium 2.9 bun 27 creatinine 1.4 magnesia 1.5 Coronavirus [PCR]-not detected Chest x-ray film personally reviewed by me-interstitial fibrosis. Femur x-ray: Right femoral neck fracture. Assessment and plan: -Right femoral neck fracture after patient tripped and fell. Ending surgery this afternoon -Primary osteoarthritis multiple joints bilateral Pain control as needed -Hyperlipidemia Continue pravastatin -Mild cognitive impairment Continue with Aricept -Hypothyroid Continue with Synthroid -COPD in a current smoker *DuoNeb 4 times a day, inhaled steroids -Chronic interstitial pulmonary fibrosis Bronchodilators and inhaled steroids -Chronic nicotine dependence, patient cigarette smoker Nicotine patch -Acute kidney injury, prerenal creatinine did drop from 1.4-1 -Severe hypokalemia Potassium being replaced Continue current medication treatment plan. Pending surgery this afternoon. Thank you Dr. Toure
[2021-02-23] MEDS: HYDROmorphone 0.5 MG/0.5 ML SYRINGE IVP PRN ×2 (00:37→05:06)
[2021-02-23] MEDS: SODIUM CHLORIDE 0.9% 1,000 ML IV SCH (02:44)
[2021-02-23] MEDS: LEVOTHYROXINE 25 MCG TAB PO SCH (05:06)
[2021-02-23 08:02] VITALS: BP 110/63; PULSE 93; RESP 16; TEMP 98.7
[2021-02-23] MEDS: IPRATROPIUM-ALBUTEROL 3 ML NEB INHALATION SCH ×2 (08:17→11:58)
[2021-02-23] MEDS: BUDESONIDE 1 MG/2 ML NEBU INHALATION SCH (08:17)
--- NOTE | 2021-02-23 08:46 | FL ---
Fluoroscopy and limited right hip HISTORY: Fracture) 56 seconds fluoroscopy time supplied to the referring clinician. 2 intraoperative C-arm images docum ent the procedure. See dictated report from orthopedic surgery.
[2021-02-23] MEDS ORDERED: FAMOTIDINE 20 MG TAB PO SCH (09:00)
[2021-02-23] MEDS: ASPIRIN 81 MG PO SCH (09:41)
[2021-02-23] MEDS: DONEPEZIL 5 MG TAB PO SCH (09:41)
[2021-02-23] MEDS: SERTRALINE 50 MG TAB PO SCH (09:42)
[2021-02-23 09:50] LABS: Basophils # (A) 0.03 X 10*3/uL (0.00-0.10); Basophils % (A) 0.3 %; Eosinophils # (A) 0.18 X 10*3/uL (0.04-0.35); HCT 29.6 % (37.2-46.3); HGB 9.5 g/dL (12.0-15.0); Lymphocytes # (A) 1.34 X 10*3/uL (0.90-5.00); Lymphocytes % (A) 14.6 %; MCH 32.6 pg (27.0-32.0); MCHC 32.1 g/dL (32.0-37.0); MCV 101.7 fL (80.0-97.0); Mean Platelet Volume 12.6 fL (9.5-12.2); Monocytes # (A) 0.95 X 10*3/uL (0.20-1.00); Monocytes % (A) 10.3 %; Neutrophils # (A) 6.61 X 10*3/uL (1.80-7.70); Platelet Count 148 X 10*3/uL (140-440); RBC 2.91 X 10*6/uL (4.10-5.20); RDW 14.1 % (11.5-14.5); WBC 9.18 X 10*3/uL (4.50-10.00)
--- NOTE | 2021-02-23 10:33 | OP ---
OPERATIVE REPORT DATE OF PROCEDURE: 02/22/2021. SURGEON: Bryce Toure MD. MANAGER PHP: Parish MCCONNELL. PREOPERATIVE DIAGNOSIS: Right intertrochanteric hip fracture. POSTOPERATIVE DIAGNOSIS: Right intertrochanteric hip fracture. PROCEDURE PERFORMED: Right intramedullary hip screw fixation for right intertrochanteric hip fracture. ANESTHESIA: Spinal with sedation. ESTIMATED BLOOD LOSS: 50 mL. TOURNIQUET: None. DRAINS: None. COMPLICATIONS: None apparent. DISPOSITION: Postanesthesia care unit. INDICATIONS: Corazon is a very pleasant 75-year-old female who lives independently. Yesterday, she fell at home onto her right hip. She had immediate pain. She was brought via ambulance to [facility]. Workup including x-rays revealed a right intertrochanteric hip fracture. She was admitted to my service. Internal Medicine Service did see her and clear her for surgery. She is an independent ambulator. The decision was made to proceed with intramedullary hip screw fixation for her right intertrochanteric hip fracture. The risks of the procedure were discussed with her in detail. These risks included, but were not limited to risk of infection, nerve damage, bleeding, pain, and a small risk of deep vein thrombosis which could lead to fatal pulmonary embolism. Further risks include failure of the fracture to heal, failure of the hardware and the possibility for deep infection. All of her questions with regard to the risks of procedure were answered to her satisfaction. Appropriate informed consent was obtained. DESCRIPTION OF PROCEDURE: The patient identified in preoperative holding area. Surgical site was marked by both the patient and myself. She was given 2 grams of Ancef IV for prophylactic purposes. She was then transported to the operative suite. She was placed supine on the operating room table. Spinal anesthetic was then administered and dosed per the anesthesia department without apparent complication. She was then placed onto the fracture table well-padded in preparation for surgery. Great care was taken to ensure that her legs were appropriately padded. The fluoroscopy was then brought in and the hip was reduced with traction and rotation. When I was happy with the reduction, we proceeded. The patient's right lower extremity was then prepped and draped in usual sterile fashion. Standard surgical pause was undertaken to ensure that we were operating on the correct site and that appropriate preoperative antibiotics had been given. All staff in the room were in agreement and we proceeded. The tip of the greater trochanter was identified. A 3 cm incision starting at the tip of the greater trochanter extending proximally in line with the shaft of the femur was then made. This dissection was carried down sharply to the tensor fascia. The tensor fascia was then incised in line with the incision. This gave me excellent access to the greater trochanter and proximal femur. The curved awl was then utilized to place the starting pin on the medial aspect of the tip of the greater trochanter and then it was advanced down the center of the shaft of the femur. This was confirmed with fluoroscopic imaging. I then utilized a starting drill to gain access to the proximal femur. The threaded guide pin was then removed and a ball-tipped guidewire was then placed down the shaft of the femur. Again, placement was confirmed via fluoroscopic imaging. I then proceeded to ream the femoral canal. I started with a 9 mm reamer and incrementally increased up to a 13 mm reamer. I had the medical center representative open 180 mm x 11 mm x 125 degree [place] Gamma nail. This was assembled onto the animal laboratory technician on the back table by the nuclear plant instrument technician. The nail was then inserted over the ball-tipped guidewire. The ball-tipped guidewire was removed. The nail was seated within the shaft of the femur. I then proceeded with placement of the hip screw. A second small stab incision was then made on the lateral thigh. The threaded guide pin was then placed in the center through the nail and into the center of the femoral head on both AP and lateral views. The hip-apex distance was appropriate. I then measured for length. The drill was then set to 95 mm. The threaded guide pin was then over-drilled under fluoroscopic imaging. I then had the medical center representative open a 95 mm x 10 mm partially-threaded cannulated hip screw. This was then placed over the threaded guide pin. The hip screw had excellent purchase in bone. It was placed deep into the center of the femoral head. The tip- apex distance was appropriate. The set screw was then placed and then backed off 1/4 turn to allow for compression at the fracture site. I then proceeded with placement of the distal interlocking screw. A third small stab incision was made on the lateral thigh. A 5 mm x 35 mm distal locking screw was then placed through the static portion of the nail. Again this was done under fluoroscopic imaging to ensure of its proper placement and that the screw was of appropriate length. At this point time, I proceeded with final fluoroscopic imaging. The nail was placed in the intramedullary canal. The hip screw was placed through the nail and deep into the center of the femoral head on both AP and lateral views. The tip-apex distance was appropriate and the distal interlocking screw was placed in a static locking fashion and was of appropriate length. At this point time no further work was seemed necessary. The jig was removed from the nail. The wounds were thoroughly irrigated with sterile saline solution with antibiotic added. The tensor fascia was closed with 0 Vicryl interrupted suture. The subcutaneous tissue closed with 2-0 Vicryl interrupted suture. The skin was closed with stainless steel antionette. Sterile dressing was applied. All sponge and needle counts were deemed correct prior to closure. The patient tolerated the procedure without apparent complication. She was transferred to recovery room in stable condition. MMODL / IJN: [id number] /
[2021-02-23] MEDS ORDERED: FERROUS SULFATE 325 MG TAB PO SCH (11:45)
[2021-02-23] MEDS ORDERED: MULTIVITAMINS, THERA 1 EACH TAB PO SCH (12:00)
--- NOTE | 2021-02-23 13:19 | P.DS ---
Providers Date of admission: 02/21/21 16:14 Expected date of discharge: 02/23/21 Attending physician: Bryce Toure Consults: 02/21/21 22:10 Consult Physician Urgent Consulting Provider: Bassem Rees Consult Reason/Comments: medical management Do you want consulting provider notified?: Already Contacted Primary care physician: Esvin Riley - Discharge Diagnosis(es) (1) Fracture of proximal end of right femur Patient was admitted to the OR on 02/22/2021 to undergo closed reduction internal fixation with gamma nail/IM hip screw for right hip IT fracture. She had suffered a fall resulting in fracture of the right hip on 02/21/2021. She desired to proceed with surgery after given informed consent. She underwent the above procedure which she tolerated well without complication. Postoperative hospital course has remained without complication. On day of discharge she is afebrile, vital signs stable, labs within acceptable ranges, tolerating by mouth meds and diet, voiding without difficulty, positive flatus, denies abdominal pain or calf pain, pain is controlled on oral pain medication and has no new complaints. Wound is benign, neurovascular status is intact, calves are soft and nontender, abdomen soft and nontender. Review of systems is negative for numbness, tingling, fever, chills, chest pain, shortness of breath, nausea, vomiting, dizziness, headaches, slurred speech or other. Current Visit: Yes Status: Acute Priority: Medium Procedures: Gamma nail/IM hip screw for right IT hip fracture Patient Condition at Discharge: Good Plan - Discharge Summary Discharge Rx Participant: No New Discharge Prescriptions: New Aspirin [Adult Low Dose Aspirin EC] 81 mg PO BID #60 tablet. Docusate [Colace] 100 mg PO BID #60 capsule HYDROcodone/APAP 7.5-325MG [[place] 7.5-325] 1 tab PO Q4H PRN #42 tab PRN Reason: Pain No Action Meclizine [Antivert] 12.5 mg PO DAILY PRN PRN Reason: DIZZINESS hydroCHLOROthiazide 50 mg PO DAILY Sertraline [Zoloft] 50 mg PO DAILY Pravastatin Sodium 80 mg PO HS Meloxicam [Mobic] 15 mg PO DAILY Levothyroxine Sodium [Synthroid] 25 mcg PO DAILY Donepezil HCl [Aricept] 5 mg PO DAILY Discharge Medication List Donepezil HCl [Aricept] 5 mg PO DAILY 02/21/21 [History] Levothyroxine Sodium [Synthroid] 25 mcg PO DAILY 02/21/21 [History] Meclizine [Antivert] 12.5 mg PO DAILY PRN 02/21/21 [History] Meloxicam [Mobic] 15 mg PO DAILY 02/21/21 [History] Pravastatin Sodium 80 mg PO HS 02/21/21 [History] Sertraline [Zoloft] 50 mg PO DAILY 02/21/21 [History] hydroCHLOROthiazide 50 mg PO DAILY 02/21/21 [History] Aspirin [Adult Low Dose Aspirin EC] 81 mg PO BID #60 tablet. 02/23/21 [Rx] Docusate [Colace] 100 mg PO BID #60 capsule 02/23/21 [Rx] HYDROcodone/APAP 7.5-325MG [[place] 7.5-325] 1 tab PO Q4H PRN #42 tab 02/23/21 [Rx] Follow up Appointment(s)/Referral(s): Esvin Riley MD [Primary Care Provider] - 1-2 days Bryce Toure MD [STAFF PHYSICIAN] - 10 Days Ambulatory/Diagnostic Orders: Walker [DME.AMB1] Location: None Selected Activity/Diet/Wound Care/Special Instructions: Touchdown weightbear with walker at all times keep wound clean and dry take meds as directed F/U in office with Dr. Toure Luz out at POD# 12 Discharge Disposition: TRANSFER TO SNF/ECF
--- NOTE | 2021-02-23 20:56 | P.PN ---
Progress Note - Text Progress Note Date: 02/23/21 - Chief Complaint Right femur fracture Consultation: This is a 75-year-old patient, follows with Dr. Riley. Chronic stable medical conditions include hypertension, hypothyroid, chronic nicotine dependence. Patient is walking and tripped falling on the right hip. Taken to the local hospital was found to have right femoral neck fracture. Some bruising on the right elbow. This was purely mechanical fall. Denies any cardiac history. She is able to walk about 2 blocks. Occasionally wheezing from smoking. No prior cardiac history. No chest pain no shortness of breath otherwise. February 22: Right IM hip screw fixation for right IT hip fracture Today: Laying in bed. Comfortable. Pain control. Did tolerate some breakfast. No chest pain shortness of breath Review of systems: Was done for constitutional, cardiovascular, GI, pulmonary. relevant finding as above Current medications reviewed in today's electronic records Past medical history to include: Hypertension, hypothyroid Social history: Smokes a pack a day for close to 60 years. Lives alone. No alcohol. Physical examination: VITAL SIGNS: 98.7, 93, 16, 110 x 63, 91% room air GENERAL: Sitting up, comfortable EYES: Pupils equal. Conjunctiva normal. NECK: JVD not raised; masses not palpable. HEART: First and second heart sounds are normal; no edema. LUNGS:[ Respiratory rate normal; decreased breath sounds ABDOMEN: Soft, nontender, liver spleen not palpable, no masses palpable. PSYCH: Alert and oriented x3; mood and affect normal. MUSCULAR skeletal: Evidence of OA. Dressing over the right hip INVESTIGATIONS, reviewed in the clinical context: February 23: WBC 9.1 hemoglobin 9.5 platelets 148 February 22: Potassium 2.7 creatinine 1 WBC 8.1 hemoglobin 13.5 platelets 212 potassium 2.9 bun 27 creatinine 1.4 magnesia 1.5 Coronavirus [PCR]-not detected Chest x-ray film personally reviewed by me-interstitial fibrosis. Femur x-ray: Right femoral neck fracture. Assessment and plan: -Right femoral neck fracture after patient tripped and fell.-Followed by IM n scotting Aspirin 81 mg twice a day for DVT prophylaxis -Primary osteoarthritis multiple joints bilateral Pain control as needed -Hyperlipidemia Continue pravastatin -Mild cognitive impairment Continue with Aricept -Hypothyroid Continue with Synthroid -COPD in a current smoker *DuoNeb 3 times a day, inhaled steroids-changed to Pulmicort or discharge -Chronic interstitial pulmonary fibrosis Bronchodilators and inhaled steroids -Chronic nicotine dependence, patient cigarette smoker Nicotine patch -Acute kidney injury, prerenal creatinine did drop from 1.4-1 Received IV fluids -Severe hypokalemia-corrected Potassium being replaced -Acute postprocedure blood loss anemia, expected from surgery Add iron sulfate Stable. Breathing better. Follow-up with Dr. Riley after DC from [facility] Thank you Dr. Toure
== END 2021-02-23 15:32 | DRG 481 ==
LOC: EEVIPCON 12:55 → EC 12:55 → 4SSUR 16:14
PROVIDERS: ADMIT Orthopaedic Surgery Sports Medicine; ATTEND Orthopaedic Surgery Sports Medicine
PROC: 0QSB36Z Reposition Right Lower Femur with Intramedullary Internal Fixation Device, Percutaneous Approach (ICD-10-PCS; principal; 2021-02-22 09:15)
DX: S72.141A Displaced intertrochanteric fracture of right femur, initial encounter for closed fracture (principal); D62 Acute posthemorrhagic anemia; N17.9 Acute kidney failure, unspecified; S50.01XA Contusion of right elbow, initial encounter; W01.0XXA Fall on same level from slipping, tripping and stumbling without subsequent striking against object, initial encounter; Y92.009 Unspecified place in unspecified non-institutional (private) residence as the place of occurrence of the external cause; Y92.481 Parking lot as the place of occurrence of the external cause; M15.9 Polyosteoarthritis, unspecified; J84.10 Pulmonary fibrosis, unspecified; J44.9 Chronic obstructive pulmonary disease, unspecified; I10 Essential (primary) hypertension; Z20.822 Contact with and (suspected) exposure to COVID-19; E03.9 Hypothyroidism, unspecified; E78.5 Hyperlipidemia, unspecified; E87.6 Hypokalemia; F17.210 Nicotine dependence, cigarettes, uncomplicated; G31.84 Mild cognitive impairment of uncertain or unknown etiology; Z79.1 Long term (current) use of non-steroidal anti-inflammatories (NSAID); Z79.890 Hormone replacement therapy; Z79.899 Other long term (current) drug therapy; Z90.49 Acquired absence of other specified parts of digestive tract; Z79.82 Long term (current) use of aspirin
CPT/HCPCS: 36415; 70450; 71045; 72125; 72170; 73501; 73502; 80048; 80053; 83735; 85025; 85610; 85730; 87635; 93005; 94640; 96361; 96374; 96375; 99285

== ENCOUNTER → 2021-06-19 | Outpatient (CLI) | payer MEDICARE ==
--- NOTE | 2021-06-19 13:40 | CT ---
EXAMINATION TYPE: CT abdomen pelvis w con DATE OF EXAM: 06/19/2021 COMPARISON: 12/20/2017 HISTORY: 75-year-old female R19.7, Unspecified diarrhea TECHNIQUE: Contiguous axial scanning of the abdomen and pelvis following administration of 100 ml Iso herb 300 IV contrast. Delayed images through the kidneys and coronal/sagittal reconstructions perform ed. CT DLP: 912 mGycm Automated exposure control for dose reduction was used. FINDINGS: Heart upper limits of normal in size without pericardial effusion. Chronic ununited right posterolate ral rib fracture deformities partially visualized. Combination of emphysema and interstitial changes in the lower lungs. No pleural effusion. Moderate atherosclerotic calcifications throughout the abdominal aorta and iliac arteries with fusifo rm ectasia infrarenal segment of the 2.7 cm. Liver mildly enlarged at 18.8 cm. There is a subtle 1.5 cm hypodensity anterior inferior right liver lobe and 8 mm posteriorly at the same level, refer to axial images 37 and 39. Not clearly seen previo usly. Portal venous system is patent. No biliary ductal dilatation. Cholecystectomy clips. Adrenal glands, right kidney, and pancreas within normal limits. Small calcified granulomas in the spleen. A few cortical cysts in the left kidney measuring up to 2.2 cm. No dilated small bowel, free fluid, or free air. There is moderate pancolonic wall thickening with a some engorgement of the vasa recta. Normal append ix is noted. Oral contrast progressed into the proximal sigmoid. Mild overall stool. Mild sigmoid diverticulosis. Inflammatory changes do not seems centered along this region. Bladder partially distended. Pelvic floor relaxation. Uterus is anteverted. Ovaries are visualized. A 2.2 cm cyst of the left ovary slightly larger from 2.0 cm in 2018. No abnormal fluid collection in the pelvis or pelvic lymphadenopathy. Bones: Osteopenia. Intramedullary nailing with hip screw fixation on the right. Moderate degenerative change both hips. Moderate to advanced degenerative disc disease L4-L5 and L5-S1. Disc osteophyte co mplex contributes to at least a mild spinal canal stenosis with previous left laminotomy at this leve l. IMPRESSION: 1. MODERATE PANCOLONIC WALL THICKENING AND EDEMA. FINDINGS COMPATIBLE WITH INFECTIOUS OR INFLAMMATORY PANCOLITIS. NO ABSCESS OR FREE AIR. 2. A COUPLE LESIONS WITHIN THE INFERIOR RIGHT LIVER LOBE. THESE ARE NOT CLEARLY SEEN PREVIOUSLY AND M EASURE 1.5 CM AND 8 MM. 2 - 3 MONTH FOLLOW-UP CT TO EXCLUDE DEVELOPING NEW LIVER LESIONS INCLUDING TH E POSSIBILITY OF METASTATIC DISEASE. 3. MILD SIGMOID DIVERTICULOSIS. 4. COMBINATION OF COPD AND SOME FIBROSIS IN THE VISUALIZED LOWER LUNGS. 5. A LEFT OVARIAN CYST SHOWS SLIGHT ENLARGEMENT FROM 2018, CURRENTLY AT 2.2 CM VERSUS 2.0 CM, PREVIOU SLY. ANNUAL ULTRASOUND SURVEILLANCE IS RECOMMENDED. 6. MILD PELVIC FLOOR RELAXATION.
== END | disposition home or self-care (01) ==
LOC: RADCTMAIN 09:55
PROVIDERS: ATTEND Family Medicine
DX: K63.89 Other specified diseases of intestine (principal); K76.9 Liver disease, unspecified; K57.30 Diverticulosis of large intestine without perforation or abscess without bleeding; N83.202 Unspecified ovarian cyst, left side
CPT/HCPCS: 82565; 84520; 74177; 36415; Q9967

== ENCOUNTER 2022-08-28 17:57 | Emergency (ER) | payer MEDICARE ==
[2022-08-28 18:05] VITALS: RESP 18
--- NOTE | 2022-08-28 21:10 | ED ---
Female Urogenital HPI - General Chief complaint: Urogenital Stated complaint: urogenital, diarrhea Time Seen by Provider: 08/28/22 20:59 Source: patient, RN notes reviewed Mode of arrival: EMS Limitations: no limitations - History of Present Illness Initial comments: Patient is a 77-year-old female presenting to the emergency department with her guardian at the direction of her primary care provider in regards to increased urinary frequency, burning with urination and increase in chronic diarrhea. She also reports pain to her buttocks region from her urinary and stool frequency. She denies any abdominal pain not related to pressure for fr equent urination and cramping from frequent diarrhea, nausea, vomiting, chest pain, shortness of breath, fevers or chills. She is a poor historian. In addition to her chronic diarrhea she has a past medical history of pulmonary fibrosis, COPD, bowel and bladder incontinence, hypothyroidism, and mild cognitive impairment. - Related Data Home Medications Medication Instructions Recorded Confirmed Donepezil HCl [Aricept] 5 mg PO DAILY 02/21/21 05/16/22 Levothyroxine Sodium [Synthroid] 25 mcg PO DAILY 02/21/21 05/16/22 Atorvastatin Calcium [Lipitor] 80 mg PO HS 05/16/22 05/16/22 Omeprazole [PriLOSEC] 20 mg PO AC-BRKFST 05/16/22 05/16/22 Ondansetron Odt [Zofran ODT] 4 mg PO DAILY PRN 05/16/22 05/16/22 Potassium Chloride [Klor-Con M20] 20 meq PO DAILY 05/16/22 05/16/22 traZODone HCL [Desyrel] 50 mg PO HS PRN 05/16/22 05/16/22 Previous Rx's Medication Instructions Recorded Aspirin 81 mg PO DAILY tab 05/21/22 Enoxaparin [Lovenox] 40 mg SQ DAILY each 05/21/22 Ertapenem [INVanz] 1 gm IVPB DAILY 10 Days #10 each 05/21/22 Ipratropium-Albuterol Nebulize 3 ml INHALATION TID each 05/21/22 [Duoneb 0.5 mg-3 mg/3 ml Soln] Nitroglycerin Sl Tabs [Nitrostat] 0.4 mg SUBLINGUAL Q5M PRN tab 05/21/22 Sodium Bicarbonate 325 mg PO DAILY 3 Days #3 tablet 08/28/22 Sulfamethox-Tmp 800-160Mg [Bactrim 1 tab PO Q12HR 7 Days #14 tab 08/28/22 DS 800-160 mg] Allergies Allergy/AdvReac Type Severity Reaction Status Date / Time No Known Allergies Allergy Verified 08/28/22 18:05 Review of Systems ROS Statement: Those systems with pertinent positive or pertinent negative responses have been documented in the HPI. ROS Other: All systems not noted in ROS Statement are negative. Past Medical History Past Medical History: COPD, Hypertension, Thyroid Disorder Additional Past Medical History / Comment(s): Pulmonary fibrosis, benign colon polyps, bowel incontinence, hypothyroid, protein calorie malnutrition, mild cognitive impairment on Aricept with guardian History of Any Multi-Drug Resistant Organisms: ESBL Date of last positivie culture/infection: 05/16/22 MDRO Source:: ESBL URINE Past Surgical History: Back Surgery, Cholecystectomy, Orthopedic Surgery Additional Past Surgical History / Comment(s): R hip gamma nail/plate, R shoulder fracture with surgery with pins, colonoscopies, bilateral cataract marques vals/lens implants. Past Anesthesia/Blood Transfusion Reactions: No Reported Reaction Past Psychological History: No Psychological Hx Reported Smoking Status: Current every day smoker Past Alcohol Use History: None Reported Past Drug Use History: None Reported - Past Family History Mother Family Medical History: Cancer Additional Family Medical History / Comment(s): Breast Father Family Medical History: Eye Disorder Additional Family Medical History / Comment(s): Father went blind as a adult, cause unknown. General Exam Limitations: altered mental status (Mild cognitive delay and poor historian with legal guardian) General appearance: alert, in no apparent distress Head exam: Present: atraumatic, normocephalic, normal inspection Eye exam: Present: normal appearance, PERRL, EOMI. Absent: scleral icterus, conjunctival injection, periorbital swelling ENT exam: Present: normal exam, mucous membranes moist Neck exam: Present: normal inspection, full ROM Respiratory exam: Present: normal lung sounds bilaterally. Absent: respiratory distress, wheezes, rales, rhonchi, stridor Cardiovascular Exam: Present: regular rate, normal rhythm, normal heart sounds. Absent: systolic murmur, diastolic murmur, rubs, gallop, clicks GI/Abdominal exam: Present: soft, normal bowel sounds. Absent: distended, tenderness, guarding, rebound, rigid Rectal exam: Present: hemorrhoids (External noninflamed) External exam: Present: erythema Extremities exam: Present: normal inspection. Absent: tenderness, pedal edema, joint swelling Back exam: Present: normal inspection. Absent: CVA tenderness (R), CVA tenderness (L) Neurological exam: Present: alert, oriented X3, CN II-XII intact Psychiatric exam: Present: normal affect, normal mood Skin exam: Present: other (Buttock with diffuse blanchable erythema near and several small air areas of broken skin. Consistent with chronic moisture present.) Course Vital Signs 08/28/22 18:01 Temperature 97.2 F L Pulse Rate 75 Respiratory 18 Rate Blood Pressure 120/55 O2 Sat by Pulse 100 Oximetry Medical Decision Making - Medical Decision Making 77-year-old female presenting to the emergency room with complaint of urinary frequency and pain with urination along with worsening chronic diarrhea with pain in the perineal area from excessive incontinence. Incontinence and diarrhea not significantly changed from baseline. No indication for IV hydration, pain medication or IV antibiotics at this time. Will obtain CBC, BMP along with urinalysis. Doubt viral etiology for diarrhea however will obtain swab for COVID, RSV and influenza. Abdominal assessment benign with chronic diarrhea no indication for diagnostic imaging of the abdomen. CBC unremarkable. BMP with elevated chloride and low bicarb consistent with chronic GI loss. Creatinine elevated with normal BUN baseline creatinine normal. CO2 16 will give oral dose of bicarbonate 650 mg. UTI noted with a history of ESBL susceptible to multiple oral antibiotics. Swabs for COVID, influenza flu an d RSV negative. Due to elevated creatinine with baseline of normal and UTI will obtain ultrasound of the kidneys and bladder. Ultrasound of kidneys and bladder image intervertebral me showing no hydr onephrosis. Multiple left renal cysts noted. Will discharge patient home in stable condition with Bactrim. No indication for renal he doses GFR greater than 30. Will give oral bicarbonate daily and advise close follow-up with primary care provider for repeat laboratory studies. Encouraged good perineal care and regular changing of incontinence pads and dependence. Case discussed with Dr. Coomsb. - Lab Data Result diagrams: 08/28/22 21:30 08/28/22 21:30 Lab Results 08/28/22 08/28/22 08/28/22 Range/Units 21:25 21:30 21:30 WBC 8.6 (3.8-10.6) k/uL RBC 4.14 (3.80-5.40) m/uL Hgb 13.2 (11.4-16.0) gm/dL Hct 38.3 (34.0-46.0) % MCV 92.4 (80.0-100.0) fL MCH 31.9 (25.0-35.0) pg MCHC 34.5 (31.0-37.0) g/dL RDW 14.6 (11.5-15.5) % Plt Count 180 (150-450) k/uL MPV 9.8 Neutrophils % 64 % Lymphocytes % 26 % Monocytes % 5 % Eosinophils % 3 % Basophils % 0 % Neutrophils # 5.5 (1.3-7.7) k/uL Lymphocytes # 2.3 (1.0-4.8) k/uL Monocytes # 0.4 (0-1.0) k/uL Eosinophils # 0.3 (0-0.7) k/uL Basophils # 0.0 (0-0.2) k/uL Sodium 136 L (137-145) mmol/L Potassium 4.0 (3.5-5.1) mmol/L Chloride 115 H (98-107) mmol/L Carbon Dioxide 16 L (22-30) mmol/L Anion Gap 5 mmol/L BUN 14 (7-17) mg/dL Creatinine 1.32 H (0.52-1.04) mg/dL Est GFR (CKD-EPI)AfAm 45 (>60 ml/min/1.73 sqM) Est GFR (CKD-EPI)NonAf 39 (>60 ml/min/1.73 sqM) Glucose 95 (74-99) mg/dL Calcium 8.8 (8.4-10.2) mg/dL Urine Color Light Yellow Urine Appearance Turbid H (Clear) Urine pH 5.5 (5.0-8.0) Ur Specific [place] 1.014 (1.001-1.035) Urine Protein 1+ H (Negative) Urine Glucose (UA) Negative (Negative) Urine Ketones Negative (Negative) Urine Blood Small H (Negative) Urine Nitrite Positive H (Negative) Urine Bilirubin Negative (Negative) Urine Urobilinogen <2.0 (<2.0) mg/dL Ur Leukocyte Esterase Large H (Negative) Urine RBC 8 H (0-5) /hpf Urine WBC >182 H (0-5) /hpf Urine WBC Clumps Few H (None) /hpf Ur Squamous Epith Cells 11 H (0-4) /hpf Urine Bacteria Moderate H (None) /hpf Urine Mucus Rare H (None) /hpf Influenza Type A (PCR) (Not Detectd) Influenza Type B (PCR) (Not Detectd) RSV (PCR) (Not Detectd) SARS-CoV-2 (PCR) (Not Detectd) 08/28/22 Range/Units 21:34 WBC (3.8-10.6) k/uL RBC (3.80-5.40) m/uL Hgb (11.4-16.0) gm/dL Hct (34.0-46.0) % MCV (80.0-100.0) fL MCH (25.0-35.0) pg MCHC (31.0-37.0) g/dL RDW (11.5-15.5) % Plt Count (150-450) k/uL MPV Neutrophils % % Lymphocytes % % Monocytes % % Eosinophils % % Basophils % % Neutrophils # (1.3-7.7) k/uL Lymphocytes # (1.0-4.8) k/uL Monocytes # (0-1.0) k/uL Eosinophils # (0-0.7) k/uL Basophils # (0-0.2) k/uL Sodium (137-145) mmol/L Potassium (3.5-5.1) mmol/L Chloride (98-107) mmol/L Carbon Dioxide (22-30) mmol/L Anion Gap mmol/L BUN (7-17) mg/dL Creatinine (0.52-1.04) mg/dL Est GFR (CKD-EPI)AfAm (>60 ml/min/1.73 sqM) Est GFR (CKD-EPI)NonAf (>60 ml/min/1.73 sqM) Glucose (74-99) mg/dL Calcium (8.4-10.2) mg/dL Urine Color Urine Appearance (Clear) Urine pH (5.0-8.0) Ur Specific [place] (1.001-1.035) Urine Protein (Negative) Urine Glucose (UA) (Negative) Urine Ketones (Negative) Urine Blood (Negative) Urine Nitrite (Negative) Urine Bilirubin (Negative) Urine Urobilinogen (<2.0) mg/dL Ur Leukocyte Esterase (Negative) Urine RBC (0-5) /hpf Urine WBC (0-5) /hpf Urine WBC Clumps (None) /hpf Ur Squamous Epith Cells (0-4) /hpf Urine Bacteria (None) /hpf Urine Mucus (None) /hpf Influenza Type A (PCR) Not Detected (Not Detectd) Influenza Type B (PCR) Not Detected (Not Detectd) RSV (PCR) Not Detected (Not Detectd) SARS-CoV-2 (PCR) Not Detected (Not Detectd) - Radiology Data Radiology results: report reviewed, image reviewed Ultrasound of kidneys renal and bladder impression by radiologist there are simple left-sided renal cortical cyst. No evidence of renal masses or obstruction. No evidence of bladder mass. No adverse changes compared to old exam. Largest cyst 2.4 x 2.2 x 2.2 cm in the inferior pole of left kidney. Disposition Clinical Impression: Urinary tract infection, Chronic diarrhea, Low bicarbonate level Disposition: HOME SELF-CARE Condition: Stable Instructions (If sedation given, give patient instructions): Urinary Tract Infection in Women (ED) Additional Instructions: Please complete course of antibiotic as prescribed. Please take sodium bicarbonate once a day as prescribed for the next 3 days and follow-up with your primary care provider in the next 1-3 days for repeat laboratory testing. Good perineal care with regular changing of incontinence pads encouraged. Please return to the Emergency Department if symptoms worsen or any other concerns. Prescriptions: Sulfamethox-Tmp 800-160Mg [Bactrim DS 800-160 mg] 1 tab PO Q12HR 7 Days #14 tab Sodium Bicarbonate 325 mg PO DAILY 3 Days #3 tablet Is patient prescribed a controlled substance at d/c from ED?: No Referrals: Esvin Riley MD [Primary Care Provider] - 1-2 days Time of Disposition: 23:27
[2022-08-28 21:42] LABS: Basophils % (A) 0 %; Eosinophils # (A) 0.3 k/uL (0-0.7); Eosinophils % (A) 3 %; HCT 38.3 % (34.0-46.0); HGB 13.2 gm/dL (11.4-16.0); Lymphocytes # (A) 2.3 k/uL (1.0-4.8); Lymphocytes % (A) 26 %; MCH 31.9 pg (25.0-35.0); MCHC 34.5 g/dL (31.0-37.0); MCV 92.4 fL (80.0-100.0); Mean Platelet Volume 9.8; Monocytes # (A) 0.4 k/uL (0-1.0); Monocytes % (A) 5 %; Neutrophils # (A) 5.5 k/uL (1.3-7.7); Neutrophils % (A) 64 %; Platelet Count 180 k/uL (150-450); RBC 4.14 m/uL (3.80-5.40); RDW 14.6 % (11.5-15.5); WBC 8.6 k/uL (3.8-10.6)
[2022-08-28 21:54] LABS: Appearance,Urine Turbid (Clear); Bacteria,Urine Moderate /hpf; Bilirubin,Urine Negative (Negative); Blood,Urine Small (Negative); Color,Urine Light Yellow; Glucose,Urine (UA) Negative (Negative); Ketones,Urine Negative (Negative); Leukocyte Esterase,Urine Large (Negative); Mucus,Urine Rare /hpf; Nitrite,Urine Positive (Negative); PH, Urine 5.5 (5.0-8.0); Protein,Urine 1+ (Negative); RBC,Urine 8 /hpf (0-5); Specific Gravity,Urine 1.014 (1.001-1.035); Squamous Epithelial Cell,Urine 11 /hpf (0-4); Urobilinogen,Urine <2.0 mg/dL (<2.0); WBC,Urine >182 /hpf (0-5)
[2022-08-28 21:54] LABS: Calcium 8.8 mg/dL (8.4-10.2)
[2022-08-28] MEDS ORDERED: SODIUM BICARBONATE TAB 650 MG TAB PO STA (21:56)
--- NOTE | 2022-08-28 23:11 | US ---
EXAMINATION TYPE: US kidneys/renal and bladder DATE OF EXAM: 08/28/2022 COMPARISON: 05/18/22 CLINICAL HISTORY: elevated cr with uti. elevated creatinine with uti EXAM MEASUREMENTS: Right Kidney: 9.5 x 5.9 x 4.2 cm Left Kidney: 7.5 x 3.9 x 3.9 cm Right Kidney: No hydronephrosis or masses seen Left Kidney: Multiple cysts seen. Largest = 2.4 x 2.2 x 2.2cm in inferior pole Bladder: wnl Bilateral Jets seen: Could not visualize due to bowel gas IMPRESSION: There are simple left-sided renal cortical cysts. No evidence of renal mass or obstruction. No eviden ce of a bladder mass. No adverse change compared to the old exam.
[2022-08-29 00:31] VITALS: BP 130/70; PULSE 71; TEMP 97.6
== END 2022-08-29 00:31 | disposition home or self-care (01) ==
LOC: EC 17:57
DX: N28.1 Cyst of kidney, acquired (principal); R19.7 Diarrhea, unspecified; E87.8 Other disorders of electrolyte and fluid balance, not elsewhere classified; J44.9 Chronic obstructive pulmonary disease, unspecified; I10 Essential (primary) hypertension; E03.9 Hypothyroidism, unspecified; F17.200 Nicotine dependence, unspecified, uncomplicated; Z79.890 Hormone replacement therapy; Z79.899 Other long term (current) drug therapy; Z90.49 Acquired absence of other specified parts of digestive tract; Z20.822 Contact with and (suspected) exposure to COVID-19
CPT/HCPCS: 36415; 76770; 80048; 81001; 85025; 87086; 87636; 99284

== ENCOUNTER 2022-09-01 14:05 | Emergency (ER) | payer MEDICARE ==
[2022-09-01 14:13] VITALS: BP 138/63; PULSE 73; RESP 20; TEMP 98.6
--- NOTE | 2022-09-01 14:22 | ED ---
General Adult HPI - General Stated complaint: Fall Time Seen by Provider: 09/01/22 14:05 Source: patient, EMS, RN notes reviewed, old records reviewed - History of Present Illness Initial comments: This is a 77-year-old female presents emergency Department complaining of left shoulder pain. Patient presents via ambulance. Patient states she just lost her balance upon her shoulder. Patient denies any head trauma patient denies any neck pain. Patient denies numbness weakness. Patient states she can move her shoulder but she's not able to raise above horizontal which is abnormal for her. Patient denies any chest pain or back pain. Patient has a large cavity pain. Patient denies any other complaints besides shoulder pain. I also took some of the history from EMS. - Related Data Home Medications Medication Instructions Recorded Confirmed Donepezil HCl [Aricept] 5 mg PO DAILY 02/21/21 05/16/22 Levothyroxine Sodium [Synthroid] 25 mcg PO DAILY 02/21/21 05/16/22 Atorvastatin Calcium [Lipitor] 80 mg PO HS 05/16/22 05/16/22 Omeprazole [PriLOSEC] 20 mg PO AC-BRKFST 05/16/22 05/16/22 Ondansetron Odt [Zofran ODT] 4 mg PO DAILY PRN 05/16/22 05/16/22 Potassium Chloride [Klor-Con M20] 20 meq PO DAILY 05/16/22 05/16/22 traZODone HCL [Desyrel] 50 mg PO HS PRN 05/16/22 05/16/22 Previous Rx's Medication Instructions Recorded Aspirin 81 mg PO DAILY tab 05/21/22 Enoxaparin [Lovenox] 40 mg SQ DAILY each 05/21/22 Ertapenem [INVanz] 1 gm IVPB DAILY 10 Days #10 each 05/21/22 Ipratropium-Albuterol Nebulize 3 ml INHALATION TID each 05/21/22 [Duoneb 0.5 mg-3 mg/3 ml Soln] Nitroglycerin Sl Tabs [Nitrostat] 0.4 mg SUBLINGUAL Q5M PRN tab 05/21/22 Sodium Bicarbonate 325 mg PO DAILY 3 Days #3 tablet 08/28/22 Sulfamethox-Tmp 800-160Mg [Bactrim 1 tab PO Q12HR 7 Days #14 tab 08/28/22 DS 800-160 mg] Allergies Allergy/AdvReac Type Severity Reaction Status Date / Time No Known Allergies Allergy Verified 09/01/22 14:13 Review of Systems ROS Statement: Those systems with pertinent positive or pertinent negative responses have been documented in the HPI. ROS Other: All systems not noted in ROS Statement are negative. Past Medical History Past Medical History: COPD, Hypertension, Thyroid Disorder Additional Past Medical History / Comment(s): Pulmonary fibrosis, benign colon polyps, bowel incontinence, hypothyroid, protein calorie malnutrition, mild cognitive impairment on Aricept with guardian History of Any Multi-Drug Resistant Organisms: ESBL Date of last positivie culture/infection: 05/16/22 MDRO Source:: ESBL URINE Past Surgical History: Back Surgery, Cholecystectomy, Orthopedic Surgery Additional Past Surgical History / Comment(s): R hip gamma nail/plate, R shoulder fracture with surgery with pins, colonoscopies, bilateral cataract removals/lens implants. Past Anesthesia/Blood Transfusion Reactions: No Reported Reaction Past Psychological History: No Psychological Hx Reported Smoking Status: Current every day smoker Past Alcohol Use History: None Reported Past Drug Use History: None Reported - Past Family History Mother Family Medical History: Cancer Additional Family Medical History / Comment(s): Breast Father Family Medical History: Eye Disorder Additional Family Medical History / Comment(s): Father went blind as a adult, cause unknown. General Exam - General Exam Comments Initial Comments: GENERAL Patient is well-developed and well-nourished. Patient is in mild distress. EYES Patient's pupils are equal and round. Extraocular motion is intact SKIN Unremarkable NEURO The patient is alert and oriented 3 PYSCH Patient has normal interpersonal interactions. MUSCULOSKELETAL Shoulder has some tenderness in the lateral aspect however she was able to lift the shoulder arm to horizontal but after that the pain became too much she was unable to move further. Course Vital Signs 09/01/22 14:11 Temperature 98.6 F Pulse Rate 73 Respiratory 20 Rate Blood Pressure 138/63 O2 Sat by Pulse 96 Oximetry Medical Decision Making - Medical Decision Making X-ray of the shoulder was interpreted by me. There is no acute abnormality. No fracture noted Disposition Clinical Impression: Fall, Shoulder strain Disposition: HOME SELF-CARE Condition: Good Instructions (If sedation given, give patient instructions): Fall Prevention fo r Older Adults (ED) Additional Instructions: Patient should take Motrin and Tylenol when necessary for pain every 6 hours when necessary for pain Is patient prescribed a controlled substance at d/c from ED?: No Referrals: Esvin Riley MD [Primary Care Provider] - 1-2 days Time of Disposition: 14:54
--- NOTE | 2022-09-01 14:54 | XR ---
EXAMINATION TYPE: XR shoulder complete LT DATE OF EXAM: 09/01/2022 COMPARISON: NONE HISTORY: Fall. Pain TECHNIQUE: 4 views FINDINGS: The glenohumeral joint is intact. I see no fracture nor dislocation. There is mild spurring at the greater tuberosity of the humerus. Scapula appears intact IMPRESSION: No acute abnormality of the left shoulder.
== END 2022-09-01 15:16 | disposition home or self-care (01) ==
LOC: EC 14:05
DX: S46.912A Strain of unspecified muscle, fascia and tendon at shoulder and upper arm level, left arm, initial encounter (principal); J44.9 Chronic obstructive pulmonary disease, unspecified; I10 Essential (primary) hypertension; E07.9 Disorder of thyroid, unspecified; F17.200 Nicotine dependence, unspecified, uncomplicated; Z79.890 Hormone replacement therapy; Z79.899 Other long term (current) drug therapy; W18.30XA Fall on same level, unspecified, initial encounter
CPT/HCPCS: 99284

== ENCOUNTER 2022-09-02 15:28 | Inpatient (IN) | payer MEDICARE ==
--- NOTE | 2022-09-02 17:22 | XR ---
EXAMINATION TYPE: XR femur LT DATE OF EXAM: 09/02/2022 COMPARISON: NONE HISTORY: Pain TECHNIQUE: 4 views FINDINGS: There is some osteopenia. Hip joint is intact. The knee joint is intact. No sign of any stan nt effusion. No fracture nor dislocation. IMPRESSION: Negative left femur exam. No fracture.
--- NOTE | 2022-09-02 17:26 | XR ---
EXAMINATION TYPE: XR knee complete LT DATE OF EXAM: 09/02/2022 COMPARISON: NONE HISTORY: Pain TECHNIQUE: 3 views FINDINGS: There is no evidence of fracture nor dislocation. Joint spaces are normal. No sign of joint effusion. IMPRESSION: Negative left knee exam. No fracture.
--- NOTE | 2022-09-02 17:27 | XR ---
EXAMINATION TYPE: XR tibia fibula LT DATE OF EXAM: 09/02/2022 COMPARISON: NONE HISTORY: Pain TECHNIQUE: 4 views FINDINGS: The tibia and fibula appear intact. No fracture seen. Ankle joint and knee joint appear int act. IMPRESSION: Negative left tibia and fibula exam. No fracture. Small Achilles calcaneal spur noted.
[2022-09-02] MEDS ORDERED: KETOROLAC 15 MG/ML 1 ML VIAL IM STA (17:53)
[2022-09-02] MEDS ORDERED: NALOXONE 0.4 MG/ML 1 ML VIAL IV PRN (18:48)
[2022-09-02 18:51] LABS: Basophils % (A) 0 %; Eosinophils # (A) 0.6 k/uL (0-0.7); Eosinophils % (A) 11 %; HCT 36.5 % (34.0-46.0); HGB 12.8 gm/dL (11.4-16.0); Lymphocytes # (A) 0.3 k/uL (1.0-4.8); Lymphocytes % (A) 5 %; MCH 32.2 pg (25.0-35.0); MCHC 35.2 g/dL (31.0-37.0); MCV 91.6 fL (80.0-100.0); Mean Platelet Volume 10.7; Monocytes # (A) 0.3 k/uL (0-1.0); Monocytes % (A) 6 %; Neutrophils # (A) 4.1 k/uL (1.3-7.7); Neutrophils % (A) 74 %; Platelet Count 116 k/uL (150-450); RBC 3.98 m/uL (3.80-5.40); RDW 15.1 % (11.5-15.5); WBC 5.6 k/uL (3.8-10.6)
--- NOTE | 2022-09-02 18:55 | ED ---
General Adult HPI - General Chief complaint: Recheck/Abnormal Lab/Rx Stated complaint: Weakness Time Seen by Provider: 09/02/22 16:05 Source: patient Mode of arrival: EMS Limitations: no limitations - History of Present Illness Initial comments: This is a 77-year-old female who presents emergency department by EMS after some left leg pain. The patient was seen yesterday for a fall on the right side but stated that she continued pain in the left leg today. The patient's family members did present to the house and she was found to be covered in urine and feces and was unable to get out of the bed secondary to pain. The patient denied falling on the left side and denied any other acute trauma and being seen yesterday. There was concern by the patient's daughter who is the patient's legal guardian that the patient could no longer care for herself at home. The patient herself was resting in bed comfortable however any time she moved her left leg she would scream but then would answer all questions appropriately. The patient denied any other acute pain or complaints at this time. - Related Data Home Medications Medication Instructions Recorded Confirmed Donepezil HCl [Aricept] 5 mg PO DAILY 02/21/21 09/02/22 Levothyroxine Sodium [Synthroid] 25 mcg PO DAILY 02/21/21 09/02/22 Atorvastatin Calcium [Lipitor] 80 mg PO HS 05/16/22 09/02/22 Omeprazole [PriLOSEC] 20 mg PO AC-BRKFST 05/16/22 09/02/22 Ondansetron Odt [Zofran ODT] 4 mg PO DAILY PRN 05/16/22 09/02/22 Potassium Chloride [Klor-Con M20] 20 meq PO DAILY 05/16/22 09/02/22 traZODone HCL [Desyrel] 50 mg PO HS 05/16/22 09/02/22 Ibuprofen [Motrin] 600 mg PO BID PRN 09/02/22 09/02/22 Previous Rx's Medication Instructions Recorded Aspirin 81 mg PO DAILY tab 05/21/22 Nitroglycerin Sl Tabs [Nitrostat] 0.4 mg SUBLINGUAL Q5M PRN tab 05/21/22 Sodium Bicarbonate 325 mg PO DAILY 3 Days #3 tablet 08/28/22 Sulfamethox-Tmp 800-160Mg [Bactrim 1 tab PO Q12HR 7 Days #14 tab 08/28/22 DS 800-160 mg] Allergies Allergy/AdvReac Type Severity Reaction Status Date / Time No Known Allergies Allergy Verified 09/02/22 17:30 Review of Systems ROS Statement: Those systems with pertinent positive or pertinent negative responses have been documented in the HPI. ROS Other: All systems not noted in ROS Statement are negative. Past Medical History Past Medical History: COPD, Hypertension, Thyroid Disorder Additional Past Medical History / Comment(s): Pulmonary fibrosis, benign colon polyps, bowel incontinence, hypothyroid, protein calorie malnutrition, mild cognitive impairment on Aricept with guardian History of Any Multi-Drug Resistant Organisms: ESBL Date of last positivie culture/infection: 05/16/22 MDRO Source:: ESBL URINE Past Surgical History: Back Surgery, Cholecystectomy, Orthopedic Surgery Additional Past Surgical History / Comment(s): R hip gamma nail/plate, R shoulder fracture with surgery with pins, colonoscopies, bilateral cataract removals/lens implants. Past Anesthesia/Blood Transfusion Reactions: No Reported Reaction Past Psychological History: No Psychological Hx Reported Smoking Status: Current every day smoker Past Alcohol Use History: None Reported Past Drug Use History: None Reported - Past Family History Mother Family Medical History: Cancer Additional Family Medical History / Comment(s): Breast Father Family Medical History: Eye Disorder Additional Family Medical History / Comment(s): Father went blind as a adult, cause unknown. General Exam Limitations: no limitations General appearance: alert, in no apparent distress Head exam: Present: atraumatic, normocephalic Eye exam: Present: normal appearance, PERRL Pupils: Present: normal accommodation ENT exam: Present: normal exam, normal oropharynx, mucous membranes moist Neck exam: Present: normal inspection, full ROM Respiratory exam: Present: normal lung sounds bilaterally Cardiovascular Exam: Present: regular rate, normal rhythm, normal heart sounds GI/Abdominal exam: Present: soft, normal bowel sounds Extremities exam: Present: normal inspection, full ROM, tenderness (Tenderness to palpation noted to the left lower extremity specifically over the mid tibia as well as the left knee. Patient did have full range of motion however was limited secondary to pain) Back exam: Present: normal inspection, full ROM Neurological exam: Present: alert, oriented X3, CN II-XII intact Psychiatric exam: Present: normal affect, normal mood Skin exam: Present: warm, dry Course Vital Signs 09/02/22 09/02/22 15:30 20:00 Temperature 98.2 F Pulse Rate 49 L 68 Respiratory 19 16 Rate Blood Pressure 103/44 103/42 O2 Sat by Pulse 94 L 98 Oximetry Medical Decision Making - Medical Decision Making The patient was seen and evaluated in the emergency department. Physical exam, the patient was resting in bed without any acute distress. Due to the nature the patient's complaints, initially, an x-ray of the femur on the left, left knee and left tib-fib were obtained. All x-rays were interpreted read by myself showing no acute pathology or fractures noted. The patient and her daughter were told of these results and that she could be deemed stable for discharge however the patient's daughter was concerned the patient had multiple falls, being in the emergency department 3 times this week alone and she was concerned about the patient taking care of herself at home. They requested the patient be admitted for placement into a nursing facility or rehabilitation. Due to the patient's continued falls and in the setting of the patient unable to a liquid in the emergency department, I did agree with this. Laboratory workup was obtai alexx. The physician covering the patient's primary care physician, Dr. Rees, was contacted and did accept the admission. The patient and her family were agreeable to this and the patient was admitted in stable condition. - Lab Data Result diagrams: 09/02/22 18:44 09/02/22 19:21 Lab Results 09/02/22 09/02/22 Range/Units 18:44 19:21 WBC 5.6 (3.8-10.6) k/uL RBC 3.98 (3.80-5.40) m/uL Hgb 12.8 (11.4-16.0) gm/dL Hct 36.5 (34.0-46.0) % MCV 91.6 (80.0-100.0) fL MCH 32.2 (25.0-35.0) pg MCHC 35.2 (31.0-37.0) g/dL RDW 15.1 (11.5-15.5) % Plt Count 116 L (150-450) k/uL MPV 10.7 Neutrophils % 74 % Lymphocytes % 5 % Monocytes % 6 % Eosinophils % 11 % Basophils % 0 % Neutrophils # 4.1 (1.3-7.7) k/uL Lymphocytes # 0.3 L (1.0-4.8) k/uL Monocytes # 0.3 (0-1.0) k/uL Eosinophils # 0.6 (0-0.7) k/uL Basophils # 0.0 (0-0.2) k/uL Sodium 134 L (137-145) mmol/L Potassium 3.8 (3.5-5.1) mmol/L Chloride 113 H (98-107) mmol/L Carbon Dioxide 18 L (22-30) mmol/L Anion Gap 3 mmol/L BUN 19 H (7-17) mg/dL Creatinine 1.45 H (0.52-1.04) mg/dL Est GFR (CKD-EPI)AfAm 40 (>60 ml/min/1.73 sqM) Est GFR (CKD-EPI)NonAf 35 (>60 ml/min/1.73 sqM) Glucose 79 (74-99) mg/dL Calcium 8.0 L (8.4-10.2) mg/dL Magnesium 1.0 L (1.6-2.3) mg/dL Total Bilirubin 0.3 (0.2-1.3) mg/dL AST 47 H (14-36) U/L ALT 20 (4-34) U/L Alkaline Phosphatase 60 (38-126) U/L Total Protein 5.7 L (6.3-8.2) g/dL Albumin 2.8 L (3.5-5.0) g/dL Disposition Clinical Impression: Falls frequently, Contusion of soft tissue, Failure to thrive Disposition: ADMITTED IP TO THIS [facility] Condition: Stable Is patient prescribed a controlled substance at d/c from ED?: No Referrals: Esvin Riley MD [Primary Care Provider] - 1-2 days Time of Disposition: 18:38 Decision to Admit Reason: Admit from EC Decision Date: 09/02/22 Decision Time: 18:38
[2022-09-02 19:39] LABS: Albumin 2.8 g/dL (3.5-5.0); Potassium 3.8 mmol/L (3.5-5.1); Total Bilirubin 0.3 mg/dL (0.2-1.3); Total Protein 5.7 g/dL (6.3-8.2)
[2022-09-02 20:39] VITALS: RESP 16
[2022-09-03] MEDS: SODIUM BICARBONATE TAB 650 MG TAB PO SCH (10:34)
[2022-09-03] MEDS: ASPIRIN 81 MG PO SCH (10:34)
[2022-09-03] MEDS: PANTOPRAZOLE 40 MG TABLET PO SCH (10:35)
[2022-09-03 14:45] LABS: Appearance,Urine Cloudy (Clear); Bacteria,Urine Many /hpf; Bilirubin,Urine Negative (Negative); Blood,Urine Small (Negative); Color,Urine Yellow; Glucose,Urine (UA) Negative (Negative); Hyaline Casts,Urine 10 /lpf (0-2); Ketones,Urine Negative (Negative); Leukocyte Esterase,Urine Large (Negative); Mucus,Urine Rare /hpf; Nitrite,Urine Negative (Negative); Protein,Urine 1+ (Negative); RBC,Urine 17 /hpf (0-5); Specific Gravity,Urine 1.019 (1.001-1.035); Squamous Epithelial Cell,Urine 9 /hpf (0-4); Urobilinogen,Urine <2.0 mg/dL (<2.0); WBC,Urine >182 /hpf (0-5)
[2022-09-03] MEDS: LACTATED RINGERS 1,000 ML IV SCH ×2 (15:14→23:54)
[2022-09-03] MEDS: NICOTINE 21MG/24HR PATCH TRANSDERM SCH (15:14)
--- NOTE | 2022-09-03 15:56 | P.HPIM ---
History of Present Illness H&P Date: 09/03/22 Chief Complaint: Fall This is a pleasant 77-year-old patient, follows with Dr. Riley. Chronic stable medical conditions include COPD, hypertension, hypothyroid, ovary fibrosis, hypothyroid, cognitive impairment. Patient has a legal guardian Kina Barrera. On September 01 patient presented to ER complaining of left shoulder pain. The ambulance. Had lost her balance and fell hitting her shoulder. No head trauma.. Per the EMS patient was found to be in stool and urine. Shoulder x- ray was negative for fracture. Patient was discharged back. Patient returned of the ER yesterday-as per the patient she was chronic at coffee lost her balance fell down. Was unable to get off the floor. Was laying on the floor that all night. Complaining of pain about area. X-ray was negative for any fracture. Patient knows that she is the hospital couldn't state the month the year. She'll she has a legal guardian. Legal guardian concerned about patient's frequent falls and would like to get rehab. Patient is a smoker. No breathing trouble. Did not pass out. No loss of conscious. Patient is a small eater. Review of systems: GEN.: None EYES: None HEENT: None NECK: None RESPIRATORY: My short of breath CARDIOVASCULAR: None GASTROINTESTINAL: Incontinent chronic GENITOURINARY: Raised dependence MUSCULOSKELETAL: Joint pains LYMPHATICS: None HEMATOLOGICAL: None PSYCHIATRY: Forgetful] NEUROLOGICAL: None Past medical history to include: COPD, hypertension, hypothyroid, ovary fibrosis, incontinence, cognitive impairment Social history: Lives alone. Smokes anemia from good bruits 3 packs of cigarettes a day. Has a legal guardian Layla Rust. Family supplies her with frozen meals. No alcohol. Has been smoking since a teenager. Physical examination: VITAL SIGNS: 98, 77, 16, 99/53, 98% on room air] GENERAL: Declining bed, awake, not in distress EYES: Pupils equal. Conjunctiva normal. Muscle muscle mass and loss of subcutaneous tissue fat HEENT: External appearance of nose and ears normal, oral cavity grossly normal. NECK: JVD not raised; masses not palpable. HEART: First and second heart sounds are normal; no edema. LUNGS: Respiratory rate normal; increased breath sounds. ABDOMEN: Soft, nontender, liver spleen not palpable, no masses palpable. PSYCH: Patient is able to tell me what the hospital, the year, the month, and she can give a simple answers.l. MUSCULOSKELETAL:No Clubbing/cyanosis;muscles-grossly intact. Evidence of OA. T enderness in the left buttock area. On movement.. Decreased muscle mass. NEUROLOGICAL: Cranial nerves grossly intact; no facial asymmetry, power and sensation grossly intact. 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 Fall precautions. Patient is on the high dose of Lipitor. Cutback on the same as that can contribute to myopathy. -Pain left buttock area. X-rays negative. We will do a computed tomography scan to rule out any occult fracture. Consult orthopedics. -Mild protein calorie micturition from decreased oral intake Add Ensure -COPD in a current smoker Albuterol when necessary. Chest x-ray -Chronic nicotine dependence, cigarette smoker Nicotine patch -Primary osteoarthritis Tylenol when necessary -Subclinical hyperthyroidism from over replacement. Patient's TSH is low normal. Patient small frame. Will DC Synthroid. -Cognitive impairment. Aricept may be contributing to falls. Will DC the same. -Abnormal kidney function. IV fluids. Renal ultrasound. Repeat labs in the morning. -GERD Prilosec -Acute UTI with cystitis Ceftin -Legal guardian, Kina Rust Computed tomography scan of both the hips and sacral area. Rule out occult fracture. Consult orthopedic. DC Synthroid. Subcu Lovenox. IV fluids. Renal ultrasound. PTOT. Consult employment case manager for possible rehab. Past Medical History Past Medical History: COPD, Hypertension, Thyroid Disorder Additional Past Medical History / Comment(s): Pulmonary fibrosis, benign colon polyps, bowel incontinence, hypothyroid, protein calorie malnutrition, mild cognitive impairment on Aricept with guardian History of Any Multi-Drug Resistant Organisms: ESBL Date of last positivie culture/infection: 05/16/22 MDRO Source:: ESBL URINE Past Surgical History: Back Surgery, Cholecystectomy, Orthopedic Surgery Additional Past Surgical History / Comment(s): R hip gamma nail/plate, R keyona ulder fracture with surgery with pins, colonoscopies, bilateral cataract removals/lens implants. Past Anesthesia/Blood Transfusion Reactions: No Reported Reaction Past Psychological History: No Psychological Hx Reported Smoking Status: Current every day smoker Past Alcohol Use History: None Reported Past Drug Use History: None Reported - Past Family History Mother Family Medical History: Cancer Additional Family Medical History / Comment(s): Breast Father Family Medical History: Eye Disorder Additional Family Medical History / Comment(s): Father went blind as a adult, cause unknown. Medications and Allergies Home Medications Medication Instructions Recorded Confirmed Type Donepezil HCl [Aricept] 5 mg PO DAILY 02/21/21 09/02/22 History Levothyroxine Sodium [Synthroid] 25 mcg PO DAILY 02/21/21 09/02/22 History Atorvastatin Calcium [Lipitor] 80 mg PO HS 05/16/22 09/02/22 History Omeprazole [PriLOSEC] 20 mg PO AC-BRKFST 05/16/22 09/02/22 History Ondansetron Odt [Zofran ODT] 4 mg PO DAILY PRN 05/16/22 09/02/22 History Potassium Chloride [Klor-Con M20] 20 meq PO DAILY 05/16/22 09/02/22 History traZODone HCL [Desyrel] 50 mg PO HS 05/16/22 09/02/22 History Aspirin 81 mg PO DAILY tab 05/21/22 09/02/22 Rx Nitroglycerin Sl Tabs [Nitrostat] 0.4 mg SUBLINGUAL Q5M PRN tab 05/21/22 09/02/22 Rx Sodium Bicarbonate 325 mg PO DAILY 3 Days #3 tablet 08/28/22 09/02/22 Rx Sulfamethox-Tmp 800-160Mg [Bactrim 1 tab PO Q12HR 7 Days #14 tab 08/28/22 09/02/22 Rx DS 800-160 mg] Ibuprofen [Motrin] 600 mg PO BID PRN 09/02/22 09/02/22 History Allergies Allergy/AdvReac Type Severity Reaction Status Date / Time No Known Allergies Allergy Verified 09/02/22 17:30 Physical Exam Vitals: Vital Signs Temp Pulse Resp BP Pulse Ox 09/03/22 06:00 98 F 77 16 99/53 98 09/02/22 20:00 68 16 103/42 98 09/02/22 15:30 98.2 F 49 L 19 103/44 94 L Intake and Output 09/02/22 09/03/22 09/03/22 22:59 06:59 14:59 Other: Weight 116 kg Results CBC & Chem 7: 09/02/22 18:44 09/02/22 19:21 Labs: Abnormal Lab Results - Last 24 Hours (Table) 09/02/22 09/02/22 Range/Units 18:44 19:21 Plt Count 116 L (150-450) k/uL Lymphocytes # 0.3 L (1.0-4.8) k/uL Sodium 134 L (137-145) mmol/L Chloride 113 H (98-107) mmol/L Carbon Dioxide 18 L (22-30) mmol/L BUN 19 H (7-17) mg/dL Creatinine 1.45 H (0.52-1.04) mg/dL Calcium 8.0 L (8.4-10.2) mg/dL Magnesium 1.0 L (1.6-2.3) mg/dL AST 47 H (14-36) U/L Total Protein 5.7 L (6.3-8.2) g/dL Albumin 2.8 L (3.5-5.0) g/dL
[2022-09-03] MEDS ORDERED: ENOXAPARIN 40 MG/0.4 ML SYRINGE SQ SCH (16:00)
--- NOTE | 2022-09-03 16:06 | XR ---
EXAMINATION TYPE: XR chest 1V portable DATE OF EXAM: 09/03/2022 COMPARISON: 05/20/2022 HISTORY: Shortness of breath TECHNIQUE: Single frontal view of the chest is obtained. FINDINGS: Hyperinflation with diffuse interstitial pattern similar to prior exam. There is a nodule along the left lung measuring 1.5 cm. No pleural effusion or pneumothorax. Diffuse osteopenia with po stsurgical change right shoulder. Atherosclerotic change aorta. Heart mildly enlarged. IMPRESSION: 1. Findings are most typical of COPD with pulmonary interstitial fibrosis. Mild superimposed intersti tial pneumonitis or venous congestion would be difficult to exclude. 2. 1.5 cm nodule left lung base recommend CT chest.
--- NOTE | 2022-09-03 16:22 | CT ---
EXAMINATION TYPE: CT pelvis wo con CT DLP: 415 mGycm, Automated exposure control for dose reduction was used. DATE OF EXAM: 09/03/2022 4:11 PM COMPARISON: 06/19/2021 CT abdomen pelvis. CLINICAL INDICATION:Female, 77 years old with history of Fall. Buttock pain left; pain after fall. L eft side pain TECHNIQUE: Axial CT of the pelvis. Sagittal and coronal reformats were created on a separate worksta tion. Contrast used: None Oral contrast used: without Oral Contrast FINDINGS: Reproductive: Left ovarian cyst measuring up to 2.8 cm, increased from 06/19/2021 where it measured 2. 2 cm STOMACH AND BOWEL: No evidence of bowel obstruction. PERITONEUM: No evidence of pneumoperitoneum or free fluid. VASCULATURE: No evidence of aortic aneurysm. Atherosclerosis of the arterial vasculature. MUSCULOSKELETAL: No acute osseous abnormalities, right hip arthroplasty changes with hardware in appr opriate position and intact. Multilevel disc degeneration changes in the lower lumbar spine. LYMPH NO LUCILA: No gross evidence for lymphadenopathy. SOFT TISSUE/ABDOMINAL WALL: Unremarkable IMPRESSION: 1. No evidence for acute pelvic or evidence of acute fracture. 2. Enlarging left ovarian cyst measuring 2.8 cm. Consider pelvic ultrasound if not recently performed . 3. Right hip arthroplasty with hardware in appropriate position.
[2022-09-03] MEDS ORDERED: Magnesium Replacement Protocol 1 EACH MISC MISCELLANE PRN (17:02)
[2022-09-03] MEDS: MAGNESIUM SULFATE-D5W PMX 1 GM in DEXTROSE/WATER 1 100ML.BAG IVPB SCH ×3 (17:49→20:55)
[2022-09-03] MEDS: ENOXAPARIN 30 MG/0.3 ML SYRINGE SQ SCH (17:49)
[2022-09-03] MEDS: CEFDINIR 300 MG CAP PO SCH (20:54)
[2022-09-03] MEDS ORDERED: traZODone HCL 50 MG TAB PO SCH (21:00)
[2022-09-03] MEDS ORDERED: ATORVASTATIN 20 MG TAB PO SCH (21:00)
[2022-09-03] MEDS ORDERED: ATORVASTATIN 80 MG TAB PO SCH (21:00)
[2022-09-04 03:50] LABS: African American GFR (CKD) 66 (>60 ml/min/1.73 sqM); Anion Gap 2 mmol/L; Blood Urea Nitrogen 21 mg/dL (7-17); Carbon Dioxide 18 mmol/L (22-30); Chloride 111 mmol/L (98-107); Glucose 91 mg/dL (74-99); Magnesium 1.7 mg/dL (1.6-2.3); Non-African American GFR(CKD) 57 (>60 ml/min/1.73 sqM); Potassium 3.5 mmol/L (3.5-5.1); Sodium 131 mmol/L (137-145)
[2022-09-04] MEDS: CEFDINIR 300 MG CAP PO SCH (08:25)
[2022-09-04] MEDS: SODIUM BICARBONATE TAB 650 MG TAB PO SCH (08:25)
[2022-09-04] MEDS: PANTOPRAZOLE 40 MG TABLET PO SCH (08:25)
[2022-09-04] MEDS: ASPIRIN 81 MG PO SCH (08:25)
[2022-09-04] MEDS: NICOTINE 21MG/24HR PATCH TRANSDERM SCH (08:25)
[2022-09-04] MEDS: ENOXAPARIN 30 MG/0.3 ML SYRINGE SQ SCH (08:26)
[2022-09-04] MEDS: LACTATED RINGERS 1,000 ML IV SCH (10:24)
--- NOTE | 2022-09-04 10:29 | P.CNOR ---
History of Present Illness - [facility] Consult date: 09/04/22 History of present illness: This patient is a 77-year-old female with a past medical history of COPD, hypertension, hyperlipidemia, cognitive impairment that presented to [facility] emergency department 09/02/22 via EMS after multiple falls at home. Per emergency department note, the patient has multiple falls recently. She was evaluated in the emergency department on 09/01/22 and was stable for discharge. The patient apparently had another fall, therefore EMS was again called by patient's daughter and the patient was brought back to the emergency department. Upon arrival to the emergency department, the patient was apparently complaining of left lower extremity pain. X-rays of the left femur, knee, tibia/fibula were obtained showing no acute fractures. CT of the pelvis was then obtained, showing no acute fractures. The patient was admitted under the care of internal medicine for rehab placement due to concerns of caring for herself at home. Orthopedic surgery was consulted for left lower extremity and buttock pain. Patient is examined bedside this morning. She states she is not experiencing any pain this morning. Per nursing, she has been ambulating with a walker to the bathroom with no issues. Patient is adamant she has no pain in the buttock or left lower extremity today. Patient does has a history of right intertrochanteric hip fracture in [address] Toure. Patient has no complaints in regard to her right hip. No complaints or concerns at the time of my exam. Past Medical History Past Medical History: COPD, Hypertension, Thyroid Disorder Additional Past Medical History / Comment(s): Pulmonary fibrosis, benign colon polyps, bowel incontinence, hypothyroid, protein calorie malnutrition, mild cognitive impairment on Aricept with guardian History of Any Multi-Drug Resistant Organisms: ESBL Year Discovered:: 05/16/22 MDRO Source:: ESBL URINE Past Surgical History: Back Surgery, Cholecystectomy, Orthopedic Surgery Additional Past Surgical History / Comment(s): R hip gamma nail/plate, R shou lder fracture with surgery with pins, colonoscopies, bilateral cataract removals/lens implants. Past Anesthesia/Blood Transfusion Reactions: No Reported Reaction Past Psychological History: No Psychological Hx Reported Smoking Status: Current every day smoker Past Alcohol Use History: None Reported Past Drug Use History: None Reported - Past Family History Mother Family Medical History: Cancer Additional Family Medical History / Comment(s): Breast Father Family Medical History: Eye Disorder Additional Family Medical History / Comment(s): Father went blind as a adult, cause unknown. Medications and Allergies Home Medications Medication Instructions Recorded Confirmed Type Donepezil HCl [Aricept] 5 mg PO DAILY 02/21/21 09/02/22 History Levothyroxine Sodium [Synthroid] 25 mcg PO DAILY 02/21/21 09/02/22 History Atorvastatin Calcium [Lipitor] 80 mg PO HS 05/16/22 09/02/22 History Omeprazole [PriLOSEC] 20 mg PO AC-BRKFST 05/16/22 09/02/22 History Ondansetron Odt [Zofran ODT] 4 mg PO DAILY PRN 05/16/22 09/02/22 History Potassium Chloride [Klor-Con M20] 20 meq PO DAILY 05/16/22 09/02/22 History traZODone HCL [Desyrel] 50 mg PO HS 05/16/22 09/02/22 History Aspirin 81 mg PO DAILY tab 05/21/22 09/02/22 Rx Nitroglycerin Sl Tabs [Nitrostat] 0.4 mg SUBLINGUAL Q5M PRN tab 05/21/22 09/02/22 Rx Sodium Bicarbonate 325 mg PO DAILY 3 Days #3 tablet 08/28/22 09/02/22 Rx Sulfamethox-Tmp 800-160Mg [Bactrim 1 tab PO Q12HR 7 Days #14 tab 08/28/22 09/02/22 Rx DS 800-160 mg] Ibuprofen [Motrin] 600 mg PO BID PRN 09/02/22 09/02/22 History Allergies Allergy/AdvReac Type Severity Reaction Status Date / Time No Known Allergies Allergy Verified 09/02/22 17:30 Physical Examination On examination, patient is sitting up in bed in no apparent distress. She is alert and answers questions appropriately. Her head appears normocephalic and atraumatic. Her breathing appears nonlabored. On inspection of her bilateral upper extremities, there are no obvious deformities or signs of trauma. There is no pain to passive range of motion of the bilateral shoulders. On inspection of her bilateral lower extremities, no obvious deformities or signs of trauma. There is no pain to palpation of the bilateral hip, thigh, knee, lower leg, ankle, feet. No pain with passive range of motion of the bilateral hips, knees. Calves are soft and nontender to palpation. Bilateral lower extremities warm and well perfused. Motor and sensory function intact bilateral lower extremities. On inspection of the low back, no ecchymosis, erythema, skin discoloration. No open wounds. There is no pain on palpation of the spine. No step-offs. Results X-rays left femur, knee, tibia/fibula 09/02/22 reviewed. No acute fractures identified. CT pelvis 09/03/22 reviewed. No acute fractures identified. Prior healed right intertrochanteric hip fracture with intact intramedullary nail. - Labs Labs: Abnormal Lab Results - Last 24 Hours (Table) 09/03/22 09/04/22 Range/Units 14:18 03:19 Sodium 131 L (137-145) mmol/L Chloride 111 H (98-107) mmol/L Carbon Dioxide 18 L (22-30) mmol/L BUN 21 H (7-17) mg/dL Calcium 8.0 L (8.4-10.2) mg/dL Urine Appearance Cloudy H (Clear) Urine Protein 1+ H (Negative) Urine Blood Small H (Negative) Ur Leukocyte Esterase Large H (Negative) Urine RBC 17 H (0-5) /hpf Urine WBC >182 H (0-5) /hpf Ur Squamous Epith Cells 9 H (0-4) /hpf Urine Bacteria Many H (None) /hpf Hyaline Casts 10 H (0-2) /lpf Urine Mucus Rare H (None) /hpf Microbiology - Last 24 Hours (Table) 09/03/22 14:18 Urine Culture - Preliminary Urine,Voided H & H 09/02/22 Range/Units 18:44 Hgb 12.8 (11.4-16.0) gm/dL Hct 36.5 (34.0-46.0) % Result Diagrams: 09/02/22 18:44 09/04/22 03:19 Assessment and Plan Assessment: History of multiple falls Plan: - Patient is having no pain on examination this morning. X-rays of left femur, knee, tibia/fibula and CT scan of the pelvis were reviewed, no acute fractures identified. Recommend evaluation by physical therapy for gait and balance training. Fall precautions. We will sign off at this time. Please contact with questions or concerns.
[2022-09-04 11:41] VITALS: BP 117/70; PULSE 55; TEMP 97.4
--- NOTE | 2022-09-04 13:04 | P.DS ---
Providers Date of admission: 09/02/22 18:54 Expected date of discharge: 09/04/22 Attending physician: Bassem Rees Consults: 09/03/22 15:28 Consult Physician Routine Consulting Provider: Alec Redman Consult Reason/Comments: Fall with buttock pain Do you want consulting provider notified?: Yes Primary care physician: [facility] Course: Chief Complaint: Fall This is a pleasant 77-year-old patient, follows with Dr. Riley. Chronic stable medical conditions include COPD, hypertension, hypothyroid, ovary fibrosis, hypothyroid, cognitive impairment. Patient has a legal guardian Kina Rust. On September 01 patient presented to ER complaining of left shoulder pain. The ambulance. Had lost her balance and fell hitting her shoulder. No head trauma.. Per the EMS patient was found to be in stool and urine. Shoulder x- ray was negative for fracture. Patient was discharged back. Patient returned of the ER yesterday-as per the patient she was chronic at coffee lost her balance fell down. Was unable to get off the floor. Was laying on the floor that all night. Complaining of pain about area. X-ray was negative for any fra cture. Patient knows that she is the hospital couldn't state the month the year. She'll she has a legal guardian. Legal guardian concerned about patient's frequent falls and would like to get rehab. Patient is a smoker. No breathing trouble. Did not pass out. No loss of conscious. Patient is a small eater. 09/04/2022: Patient had acute kidney injury, prerenal. Does come back to normal after hydration. She'll complete 3 days of Ceftin for the UTI. Computed tomography scan of the hip sacrum all negative for fracture. Seen by orthopedics. PTOT. We will go to rehab [facility]. Patient comfortable. Oral intake encouraged. ensure Discussion and discharge planning more than 35 minutes Past medical history to include: COPD, hypertension, hypothyroid, ovary fibrosis, incontinence, cognitive impairment Social history: Lives alone. Smokes anemia from good bruits 3 packs of cigarettes a day. Has a legal guardian Layla Rust. Family supplies her with frozen meals. No alcohol. Has been smoking since a teenager. Physical examination: VITAL SIGNS: 97.4, 55, 16, 170/70, 96% room air GENERAL: Up in a chair, comfortable, awake, comfortable Muscle muscle mass and loss of subcutaneous tissue fat EYES: Pupils equal. Conjunctiva normal. HEENT: External appearance of nose and ears normal, oral cavity grossly normal. NECK: JVD not raised; masses not palpable. HEART: First and second heart sounds are normal; no edema. LUNGS: Respiratory rate normal; increased breath sounds. ABDOMEN: Soft, nontender, liver spleen not palpable, no masses palpable. PSYCH: Patient is able to tell me what the hospital, the year, the month, and she can give a simple answers.l. MUSCULOSKELETAL:No Clubbing/cyanosis;muscles-grossly intact. Evidence of OA. Tenderness in the left buttock area. On movement.. Decreased muscle mass. NEUROLOGICAL: Cranial nerves grossly intact; no facial asymmetry, power and sensation grossly intact. INVESTIGATIONS, reviewed in the clinical context: Chest x-ray film personally reviewed by me-hyperinflation, fibrotic changes Pelvic CT: Negative for fracture. Left ovarian cyst 2.8 cm. Right hip arthroplasty with hardware. Appropriate 09/04/2022: Potassium 3.5. 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 Fall precautions. Patient is on the high dose of Lipitor. Cutback on the same as that can contribute to myopathy. PT OT/rehab -Blunt injury to sacrum and pelvis. Fracture ruled out Seen by Dr. Redman from orthopedics. -Mild protein calorie micturition from decreased oral intake Ensure -COPD in a current smoker Albuterol when necessary. Chest x-ray -Possibly pulmonary fibrosis, chronic -Chronic nicotine dependence, cigarette smoker Nicotine patch -Primary osteoarthritis Tylenol when necessary -Subclinical hyperthyroidism from over replacement. Patient's TSH is low normal. Clinically not hypothyroid DC Synthroid -Cognitive impairment. Aricept may be contributing to falls. Will DC Aricept -Left ovarian cyst 2.8 cm -Acute kidney injury, prerenal from decreased fluid intake: Corrected IV fluids. -GERD Prilosec -Acute UTI with cystitis Ceftin-3 days -Legal guardian, Kina Rust Disposition: [facility] Plan - Discharge Summary Discharge Rx Participant: Yes New Discharge Prescriptions: New Naproxen [Naprosyn] 250 mg PO TID #9 tab Nicotine 21Mg/24Hr Patch [Habitrol] 1 patch TRANSDERM DAILY patch Cefdinir [Omnicef] 300 mg PO BID #6 cap Continue traZODone HCL [Desyrel] 50 mg PO HS Ondansetron Odt [Zofran ODT] 4 mg PO DAILY PRN PRN Reason: Nausea Omeprazole [PriLOSEC] 20 mg PO AC-BRKFST Aspirin 81 mg PO DAILY tab Nitroglycerin Sl Tabs [Nitrostat] 0.4 mg SUBLINGUAL Q5M PRN tab PRN Reason: Chest Pain Atorvastatin Calcium [Lipitor] 80 mg PO HS Sodium Bicarbonate 325 mg PO DAILY 3 Days #3 tablet Discontinued Potassium Chloride [Klor-Con M20] 20 meq PO DAILY Sulfamethox-Tmp 800-160Mg [Bactrim DS 800-160 mg] 1 tab PO Q12HR 7 Days #14 tab Levothyroxine Sodium [Synthroid] 25 mcg PO DAILY Donepezil HCl [Aricept] 5 mg PO DAILY Ibuprofen [Motrin] 600 mg PO BID PRN PRN Reason: Pain Discharge Medication List Atorvastatin Calcium [Lipitor] 80 mg PO HS 05/16/22 [History] Omeprazole [PriLOSEC] 20 mg PO AC-BRKFST 05/16/22 [History] Ondansetron Odt [Zofran ODT] 4 mg PO DAILY PRN 05/16/22 [History] traZODone HCL [Desyrel] 50 mg PO HS 05/16/22 [History] Aspirin 81 mg PO DAILY tab 05/21/22 [Rx] Nitroglycerin Sl Tabs [Nitrostat] 0.4 mg SUBLINGUAL Q5M PRN tab 05/21/22 [Rx] Sodium Bicarbonate 325 mg PO DAILY 3 Days #3 tablet 08/28/22 [Rx] Cefdinir [Omnicef] 300 mg PO BID #6 cap 09/04/22 [Rx] Naproxen [Naprosyn] 250 mg PO TID #9 tab 09/04/22 [Rx] Nicotine 21Mg/24Hr Patch [Habitrol] 1 patch TRANSDERM DAILY patch 09/04/22 [Rx] Follow up Appointment(s)/Referral(s): Esvin Riley MD [Primary Care Provider] - 1-2 days
[2022-09-05] MEDS ORDERED: ENOXAPARIN 40 MG/0.4 ML SYRINGE SQ SCH (09:00)
== END 2022-09-04 15:23 | DRG 92 ==
LOC: EC 15:28 → 5NMEDONC 18:54
PROVIDERS: ADMIT Hospitalist; ATTEND Hospitalist
DX: G72.89 Other specified myopathies (principal); E44.1 Mild protein-calorie malnutrition; N17.9 Acute kidney failure, unspecified; Z68.1 Body mass index [BMI] 19.9 or less, adult; J44.9 Chronic obstructive pulmonary disease, unspecified; E05.90 Thyrotoxicosis, unspecified without thyrotoxic crisis or storm; I10 Essential (primary) hypertension; R62.7 Adult failure to thrive; N30.90 Cystitis, unspecified without hematuria; J84.10 Pulmonary fibrosis, unspecified; F17.210 Nicotine dependence, cigarettes, uncomplicated; M19.91 Primary osteoarthritis, unspecified site; E78.5 Hyperlipidemia, unspecified; N83.202 Unspecified ovarian cyst, left side; K21.9 Gastro-esophageal reflux disease without esophagitis; R29.6 Repeated falls; M25.512 Pain in left shoulder; T46.6X5A Adverse effect of antihyperlipidemic and antiarteriosclerotic drugs, initial encounter; B95.4 Other streptococcus as the cause of diseases classified elsewhere; Z74.2 Need for assistance at home and no other household member able to render care; G31.84 Mild cognitive impairment of uncertain or unknown etiology; W01.0XXA Fall on same level from slipping, tripping and stumbling without subsequent striking against object, initial encounter; Z79.899 Other long term (current) drug therapy; Z79.890 Hormone replacement therapy; Z79.82 Long term (current) use of aspirin; Z87.19 Personal history of other diseases of the digestive system; Z91.81 History of falling; Z87.81 Personal history of (healed) traumatic fracture
CPT/HCPCS: 36415; 71045; 72192; 80048; 80053; 81001; 83735; 84443; 85025; 87077; 87086; 87186; 96372; 99285

== ENCOUNTER 2022-10-11 11:19 | Inpatient (IN) | payer MEDICARE, OTHER ==
[2022-10-11] MEDS ORDERED: ACETAMINOPHEN TAB 500 MG TAB PO STA (11:46)
[2022-10-11 12:18] LABS: Albumin 3.7 g/dL (3.5-5.0); Calcium 8.5 mg/dL (8.4-10.2); Potassium 4.9 mmol/L (3.5-5.1); Total Bilirubin 0.7 mg/dL (0.2-1.3); Total Protein 7.5 g/dL (6.3-8.2)
--- NOTE | 2022-10-11 12:23 | XR ---
EXAMINATION TYPE: XR chest 2V DATE OF EXAM: 10/11/2022 COMPARISON: 09/03/2022 HISTORY: 77-year-old female with a fever, nausea, vomiting, weakness TECHNIQUE: AP and lateral views FINDINGS: Heart mildly enlarged. Hyperinflation. Bilateral interstitial opacities have increased from prior exa m. No pleural effusion. Atherosclerotic calcifications throughout the thoracic aorta. Subtle levoconv ex scoliosis upper thoracic spine. Suture anchors right humeral head from prior cuff repair. IMPRESSION: Mild cardiomegaly and COPD. Interstitial changes have increased. Correlate for CHF with pulmonary vas cular congestion versus bronchitis or atypical pneumonias.
[2022-10-11] MEDS ORDERED: SODIUM CHLORIDE 0.9% 1,000 ML IV ONE ×2 (12:59→14:48)
--- NOTE | 2022-10-11 12:59 | ED ---
General Adult HPI - General Chief complaint: Weakness Stated complaint: NVD,Weakness Time Seen by Provider: 10/11/22 11:30 Source: patient, family, EMS, RN notes reviewed Mode of arrival: EMS Limitations: no limitations - History of Present Illness Initial comments: 77-year-old female presents emergency department via EMS from home for weakness. Patient recently was admitted to [facility] 2 days ago. Patient was too weak to get a bed found to be febrile and hypoxic. Patient does have underlying pulmonary fibrosis. Patient has had slightly increasing cough, weakness. Patient has no dysuria no hematuria no cords abdominal pain. Patient has no focal weakness. - Related Data Home Medications Medication Instructions Recorded Confirmed Atorvastatin Calcium [Lipitor] 80 mg PO HS 05/16/22 10/11/22 Omeprazole [PriLOSEC] 20 mg PO AC-BRKFST 05/16/22 10/11/22 Ondansetron Odt [Zofran ODT] 4 mg PO DAILY PRN 05/16/22 10/11/22 traZODone HCL [Desyrel] 50 mg PO HS PRN 05/16/22 10/11/22 Ferrous Sulfate [Feosol] 325 mg PO DAILY 10/11/22 10/11/22 L.acidoph,Paracasei, B.lactis 1 cap PO DAILY 10/11/22 10/11/22 [Probiotic] Levothyroxine Sodium [Synthroid] 25 mcg PO DAILY 10/11/22 10/11/22 Loperamide [Imodium] 2 mg PO QID PRN 10/11/22 10/11/22 Melatonin 10 mg PO HS 10/11/22 10/11/22 Potassium Chloride [Klor-Con M20] 20 meq PO DAILY 10/11/22 10/11/22 Sodium Chloride [Saline Mist] 1 spray EA NOSTRIL DAILY 10/11/22 10/11/22 Previous Rx's Medication Instructions Recorded Aspirin 81 mg PO DAILY tab 05/21/22 Sodium Bicarbonate 325 mg PO DAILY 3 Days #3 tablet 08/28/22 Allergies Allergy/AdvReac Type Severity Reaction Status Date / Time banana AdvReac Nausea & Verified 10/11/22 11:32 Vomiting Review of Systems ROS Statement: Those systems with pertinent positive or pertinent negative responses have been documented in the HPI. ROS Other: All systems not noted in ROS Statement are negative. Past Medical History Past Medical History: COPD, Hypertension, Thyroid Disorder Additional Past Medical History / Comment(s): Pulmonary fibrosis, benign colon polyps, bowel incontinence, hypothyroid, protein calorie malnutrition, mild cognitive impairment on Aricept with guardian History of Any Multi-Drug Resistant Organisms: ESBL Date of last positivie culture/infection: 05/16/22 MDRO Source:: ESBL URINE Past Surgical History: Back Surgery, Cholecystectomy, Orthopedic Surgery Additional Past Surgical History / Comment(s): R hip gamma nail/plate, R shoulder fracture with surgery with pins, colonoscopies, bilateral cataract removals/lens implants. Past Anesthesia/Blood Transfusion Reactions: No Reported Reaction Past Psychological History: No Psychological Hx Reported Smoking Status: Current every day smoker Past Alcohol Use History: None Reported Past Drug Use History: None Reported - Past Family History Mother Family Medical History: Cancer Additional Family Medical History / Comment(s): Breast Father Family Medical History: Eye Disorder Additional Family Medical History / Comment(s): Father went blind as a adult, cause unknown. General Exam Limitations: no limitations General appearance: alert, in no apparent distress Head exam: Present: atraumatic, normocephalic, normal inspection Eye exam: Present: normal appearance, PERRL, EOMI. Absent: scleral icterus, conjunctival injection, periorbital swelling ENT exam: Present: normal exam, normal oropharynx, mucous membranes moist Neck exam: Present: normal inspection, full ROM. Absent: tenderness, meningismus, lymphadenopathy Respiratory exam: Present: normal lung sounds bilaterally. Absent: respiratory distress, wheezes, rales, rhonchi, stridor Cardiovascular Exam: Present: regular rate, normal rhythm, normal heart sounds. Absent: systolic murmur, diastolic murmur, rubs, gallop, clicks GI/Abdominal exam: Present: soft, normal bowel sounds. Absent: distended, tenderness, guarding, rebound, rigid Neurological exam: Present: alert Skin exam: Present: warm, dry, intact, normal color. Absent: rash Course Vital Signs 10/11/22 10/11/22 11:22 12:44 Temperature 100.3 F H Pulse Rate 92 85 Respiratory 18 18 Rate Blood Pressure 93/52 103/60 O2 Sat by Pulse 90 L 97 Oximetry Medical Decision Making - Medical Decision Making Was pt. sent in by a medical professional or institution (Dr., PA, CLINICAL TECH, urgent care, hospital, or correction...) When possible be specific @ -No Did you speak to anyone other than the patient for history (EMS, parent, family, police, friend...)? What history was obtained from this source @ -EMS and family provided recent health history, history of at home and current treatment Did you review nursing and triage notes (agree or disagree)? Why? @ -I reviewed and agree with nursing and triage notes Were old charts reviewed (outside hosp., previous admission, EMS record, old EKG, old radiological studies, urgent care reports/EKG's, correction records)? Report findings @ -No old charts were reviewed Differential Diagnosis (chest pain, altered mental status, abdominal pain women, abdominal pain men, vaginal bleeding, weakness, fever, dyspnea, syncope, headache, dizziness, GI bleed, back pain, seizure, CVA, palpatations, mental health)? @ -Pneumonia, UTI, sepsis, COVID-19, influenza, this list all inconclusive. EKG interpreted by me (3pts min.). @ -none X-rays interpreted by me (1pt min.). @ -Chest x-ray shows no acute process. CT interpreted by me (1pt min.). @ -None done U/S interpreted by me (1pt. min.). @ -None done What testing was considered but not performed or refused? (CT, X-rays, U/S, labs)? Why? @ -None What meds were considered but not given or refused? Why? @ -None Did you discuss the management of the patient with other professionals (professionals i.e. , PA, CLINICAL TECH, lab, RT, psych nurse, social media manager, flat finisher, teacher, safety and security officer, spring encaser)? Give summary @ -Dr. Rees admitting for further treatment and management Was smoking cessation discussed for >3mins.? @ -No Was critical care preformed (if so, how long)? @ -[yes 35 Were there social determinants of health that impacted care today? How? (Homelessness, low income, unemployed, alcoholism, drug addiction, transportation, low edu. Level, literacy, decrease access to med. care, penitentiary, rehab)? @ -No Was there de-escalation of care discussed even if they declined (Discuss DNR or withdrawal of care, Hospice)? DNR status @ -No What co-morbidities impacted this encounter? (DM, HTN, Smoking, COPD, CAD, Cancer, CVA, ARF, Chemo, Hep., AIDS, mental health diagnosis, sleep apnea, morbid obesity)? @ -None Was patient admitted / discharged? Hospital course, mention meds given and route, prescriptions, significant lab abnormalities, going to OR and other pertinent info. @ -Admitted - 77-year-old presented for weakness.Patient's found to have urosepsis. Patient has evidence of urinary tract infection, febrile, hypotension and leukocytosis. Patient started fluid bolus, IV antibiotics, blood culture. Patiently admitted for further treatment and management. Undiagnosed new problem with uncertain prognosis? @ -yes Drug Therapy requiring intensive monitoring for toxicity (Heparin, Nitro, Insulin, Cardizem)? @ -No Were any procedures done? @ -No Diagnosis/symptom? @ -Urosepsis Acute, or Chronic, or Acute on Chronic? @ -acute Uncomplicated (without systemic symptoms) or Complicated (systemic symptoms)? @ -Complicated Side effects of treatment? @ -No Exacerbation, Progression, or Severe Exacerbation? @ -No Poses a threat to life or bodily function? How? (Chest pain, [place], [place], pneumonia, PE, COPD, DKA, ARF, appy, cholecystitis, CVA, Diverticulitis, Homicidal, Suicidal, threat to staff... and all critical care pts) @ -[yes - Lab Data Result diagrams: 10/11/22 13:01 10/11/22 11:55 Lab Results 10/11/22 10/11/22 10/11/22 Range/Units 11:55 11:55 11:55 WBC (3.8-10.6) k/uL RBC (3.80-5.40) m/uL Hgb (11.4-16.0) gm/dL Hct (34.0-46.0) % MCV (80.0-100.0) fL MCH (25.0-35.0) pg MCHC (31.0-37.0) g/dL RDW (11.5-15.5) % Plt Count (150-450) k/uL MPV Neutrophils % (Manual) % Band Neuts % (Manual) % Lymphocytes % (Manual) % Monocytes % (Manual) % Eosinophils % (Manual) % Neutrophils # (Manual) (1.3-7.7) k/uL Lymphocytes # (Manual) (1.0-4.8) k/uL Monocytes # (Manual) (0-1.0) k/uL Eosinophils # (Manual) (0-0.7) k/uL Nucleated RBCs (0-0) /100 WBC Manual Slide Review RBC Morphology Sodium 137 (137-145) mmol/L Potassium 4.9 (3.5-5.1) mmol/L Chloride 109 H (98-107) mmol/L Carbon Dioxide 19 L (22-30) mmol/L Anion Gap 9 mmol/L BUN 23 H (7-17) mg/dL Creatinine 1.95 H (0.52-1.04) mg/dL Est GFR (CKD-EPI)AfAm 28 (>60 ml/min/1.73 sqM) Est GFR (CKD-EPI)NonAf 24 (>60 ml/min/1.73 sqM) Glucose 127 H (74-99) mg/dL Plasma Lactic Acid Александр 1.9 (0.7-2.0) mmol/L Calcium 8.5 (8.4-10.2) mg/dL Total Bilirubin 0.7 (0.2-1.3) mg/dL AST 32 (14-36) U/L ALT 19 (4-34) U/L Alkaline Phosphatase 86 (38-126) U/L Total Protein 7.5 (6.3-8.2) g/dL Albumin 3.7 (3.5-5.0) g/dL Urine Color Yellow Urine Appearance Cloudy H (Clear) Urine pH 5.5 (5.0-8.0) Ur Specific [place] 1.017 (1.001-1.035) Urine Protein 2+ H (Negative) Urine Glucose (UA) Negative (Negative) Urine Ketones Negative (Negative) Urine Blood Large H (Negative) Urine Nitrite Negative (Negative) Urine Bilirubin Negative (Negative) Urine Urobilinogen 2.0 (<2.0) mg/dL Ur Leukocyte Esterase Large H (Negative) Urine RBC 50 H (0-5) /hpf Urine WBC >182 H (0-5) /hpf Urine WBC Clumps Moderate H (None) /hpf Ur Squamous Epith Cells 2 (0-4) /hpf Urine Bacteria Rare H (None) /hpf Cellular Casts 5 (0) /lpf Urine Mucus Occasional H (None) /hpf Influenza Type A (PCR) (Not Detectd) Influenza Type B (PCR) (Not Detectd) RSV (PCR) (Not Detectd) SARS-CoV-2 (PCR) (Not Detectd) 10/11/22 10/11/22 Range/Units 11:55 13:01 WBC 22.7 H (3.8-10.6) k/uL RBC 3.71 L (3.80-5.40) m/uL Hgb 11.4 (11.4-16.0) gm/dL Hct 35.4 (34.0-46.0) % MCV 95.3 (80.0-100.0) fL MCH 30.7 (25.0-35.0) pg MCHC 32.2 (31.0-37.0) g/dL RDW 15.3 (11.5-15.5) % Plt Count 218 (150-450) k/uL MPV 8.2 Neutrophils % (Manual) 86 % Band Neuts % (Manual) 2 % Lymphocytes % (Manual) 1 % Monocytes % (Manual) 10 % Eosinophils % (Manual) 1 % Neutrophils # (Manual) 19.90 H (1.3-7.7) k/uL Lymphocytes # (Manual) 0.23 L (1.0-4.8) k/uL Monocytes # (Manual) 2.27 H (0-1.0) k/uL Eosinophils # (Manual) 0.23 (0-0.7) k/uL Nucleated RBCs 0 (0-0) /100 WBC Manual Slide Review Performed RBC Morphology Normal Sodium (137-145) mmol/L Potassium (3.5-5.1) mmol/L Chloride (98-107) mmol/L Carbon Dioxide (22-30) mmol/L Anion Gap mmol/L BUN (7-17) mg/dL Creatinine (0.52-1.04) mg/dL Est GFR (CKD-EPI)AfAm (>60 ml/min/1.73 sqM) Est GFR (CKD-EPI)NonAf (>60 ml/min/1.73 sqM) Glucose (74-99) mg/dL Plasma Lactic Acid Александр (0.7-2.0) mmol/L Calcium (8.4-10.2) mg/dL Total Bilirubin (0.2-1.3) mg/dL AST (14-36) U/L ALT (4-34) U/L Alkaline Phosphatase (38-126) U/L Total Protein (6.3-8.2) g/dL Albumin (3.5-5.0) g/dL Urine Color Urine Appearance (Clear) Urine pH (5.0-8.0) Ur Specific [place] (1.001-1.035) Urine Protein (Negative) Urine Glucose (UA) (Negative) Urine Ketones (Negative) Urine Blood (Negative) Urine Nitrite (Negative) Urine Bilirubin (Negative) Urine Urobilinogen (<2.0) mg/dL Ur Leukocyte Esterase (Negative) Urine RBC (0-5) /hpf Urine WBC (0-5) /hpf Urine WBC Clumps (None) /hpf Ur Squamous Epith Cells (0-4) /hpf Urine Bacteria (None) /hpf Cellular Casts (0) /lpf Urine Mucus (None) /hpf Influenza Type A (PCR) Not Detected (Not Detectd) Influenza Type B (PCR) Not Detected (Not Detectd) RSV (PCR) Not Detected (Not Detectd) SARS-CoV-2 (PCR) Not Detected (Not Detectd) Critical Care Time Critical Care Time: Yes Total Critical Care Time: 35 Disposition Clinical Impression: UTI (urinary tract infection), Sepsis, Weakness Disposition: ADMITTED IP TO [facility] Condition: Poor Referrals: Esvin Riley MD [Primary Care Provider] - 1-2 days Time of Disposition: 14:54
[2022-10-11 13:12] LABS: HCT 35.4 % (34.0-46.0); HGB 11.4 gm/dL (11.4-16.0); MCH 30.7 pg (25.0-35.0); MCHC 32.2 g/dL (31.0-37.0); MCV 95.3 fL (80.0-100.0); Mean Platelet Volume 8.2; Platelet Count 218 k/uL (150-450); RBC 3.71 m/uL (3.80-5.40); RDW 15.3 % (11.5-15.5); WBC 22.7 k/uL (3.8-10.6)
[2022-10-11 13:54] LABS: Appearance,Urine Cloudy (Clear); Bacteria,Urine Rare /hpf; Bilirubin,Urine Negative (Negative); Blood,Urine Large (Negative); Cellular Casts,Urine 5 /lpf (0); Color,Urine Yellow; Glucose,Urine (UA) Negative (Negative); Ketones,Urine Negative (Negative); Leukocyte Esterase,Urine Large (Negative); Mucus,Urine Occasional /hpf; Nitrite,Urine Negative (Negative); PH, Urine 5.5 (5.0-8.0); Protein,Urine 2+ (Negative); RBC,Urine 50 /hpf (0-5); Specific Gravity,Urine 1.017 (1.001-1.035); Squamous Epithelial Cell,Urine 2 /hpf (0-4); WBC,Urine >182 /hpf (0-5)
[2022-10-11 14:15] LABS: Band Neutrophils % 2 %; Eosinophils # (M) 0.23 k/uL (0-0.7); Lymphocytes # (M) 0.23 k/uL (1.0-4.8); Monocytes # (M) 2.27 k/uL (0-1.0); Neutrophils % (M) 86 %; Nucleated Red Blood Cells 0 /100 WBC (0-0); Total Cells Counted 100
[2022-10-11 14:18] LABS: RBC Morphology Normal
[2022-10-11] MEDS ORDERED: ONDANSETRON 4 MG/2 ML VIAL IVP PRN (14:54)
[2022-10-11] MEDS ORDERED: NALOXONE 0.4 MG/ML 1 ML VIAL IV PRN (14:54)
[2022-10-11] MEDS ORDERED: LOPERAMIDE 2 MG CAP PO PRN (14:55)
[2022-10-11] MEDS ORDERED: traZODone HCL 50 MG TAB PO PRN (14:55)
[2022-10-11] MEDS: SODIUM CHLORIDE 0.9% 1,000 ML IV SCH (15:41)
[2022-10-11] MEDS ORDERED: IBUPROFEN 600 MG TAB PO STA (15:43)
[2022-10-11] MEDS ORDERED: CALCIUM CARBONATE 500 MG CHEWABLE PO PRN (20:59)
[2022-10-11] MEDS ORDERED: LACTULOSE 20 GM/30 ML CUP PO PRN (20:59)
--- NOTE | 2022-10-11 21:14 | P.HPIM ---
History of Present Illness H&P Date: 10/11/22 Chief Complaint: Feeling weak This is a pleasant 77-year-old patient, follows with Dr. Riley. Chronic stable medical conditions include COPD, hypertension, , pulmonary fibrosis, hypothyroid, cognitive impairment. has a legal guardian Kina Rust. Patient lives alone and takes care of herself. In physical therapy arrived today they found the patient was weak and not able to get out of bed. Patient is started vomiting. According to the daughter to the EMS personnel patient has not been eating much for last 2 days. Weak tired rundown. Because of cognitive impairment patient not a very good historian. Had a fever of 100.4 in the ER. Urine came back infected appearing Review of systems: GEN.: Tired decreased appetite EYES: None HEENT: None NECK: None RESPIRATORY: None CARDIOVASCULAR: None GASTROINTESTINAL: [Vomited, no abdominal pain GENITOURINARY: None MUSCULOSKELETAL: Joint pains LYMPHATICS: None HEMATOLOGICAL: None PSYCHIATRY: None NEUROLOGICAL: Forgetful Past medical history to include: COPD, hypertension, , pulmonary fibrosis, incontinence, cognitive impairment Social history: Lives alone. Smokes cigarettes. Has a legal guardian Layla Rust. Family supplies her with frozen meals. No alcohol. Has been smoking since a teenager. Physical examination: VITAL SIGNS: 100.4, 83, 18, 96/44, 94% room air GENERAL: Reclining in bed, awake, tired. Muscle muscle mass and loss of subcutaneous tissue fat EYES: Pupils equal. Conjunctiva normal. HEENT: External appearance of nose and ears normal, oral cavity grossly normal. NECK: JVD not raised; masses not palpable. HEART: First and second heart sounds are normal; no edema. LUNGS: Respiratory rate normal; increased breath sounds. ABDOMEN: Soft, nontender, liver spleen not palpable, no masses palpable. PSYCH: Able to answer simple questions. Mild anxiety. l. MUSCULOSKELETAL:No Clubbing/cyanosis;muscles-grossly intact. Evidence of OA. . Decreased muscle mass. NEUROLOGICAL: Cranial nerves grossly intact; no facial asymmetry, power and sensation grossly intact. INVESTIGATIONS, reviewed in the clinical context: White count 22.7 hemoglobin 11.4 platelets 218 potassium 4.9 BUN 23 creatinine 1.95 UA positive for leukoesterase, negative for nitrite, WBC 182 Influenza type A/diabetes/RSV/COVID-19: Not detected Chest x-ray film personally reviewed by me-possible chronic fibrotic changes Assessment and plan: -Acute kidney injury, predominantly prerenal from vomiting. IV fluids. Patient creatinine was 0.96 on 09/04/2022 -Acute UTI with cystitis Keflex -Acute medical asthenia from renal failure Increase activity as tolerated. PTOT -Mild protein calorie micturition from decreased oral intake Ensure new -COPD in a current smoker Albuterol when necessary. -Chronic nicotine dependence, cigarette smoker Nicotine patch -Primary osteoarthritis Tylenol when necessary -Pulmonary fibrosis, chronic -Cognitive impairment. -Left ovarian cyst 2.8 cm -GERD Prilosec -Legal guardian, Kina Rust Past Medical History Past Medical History: COPD, Hypertension, Thyroid Disorder Additional Past Medical History / Comment(s): Pulmonary fibrosis, benign colon polyps, bowel incontinence, hypothyroid, protein calorie malnutrition, mild cognitive impairment on Aricept with guardian History of Any Multi-Drug Resistant Organisms: ESBL Date of last positivie culture/infection: 05/16/22 MDRO Source:: ESBL URINE Past Surgical History: Back Surgery, Cholecystectomy, Orthopedic Surgery Additional Past Surgical History / Comment(s): R hip gamma nail/plate, R shoulde r fracture with surgery with pins, colonoscopies, bilateral cataract removals/lens implants. Past Anesthesia/Blood Transfusion Reactions: No Reported Reaction Smoking Status: Current every day smoker - Past Family History Mother Family Medical History: Cancer Additional Family Medical History / Comment(s): Breast Father Family Medical History: Eye Disorder Additional Family Medical History / Comment(s): Father went blind as a adult, cause unknown. Medications and Allergies Home Medications Medication Instructions Recorded Confirmed Type Atorvastatin Calcium [Lipitor] 80 mg PO HS 05/16/22 10/11/22 History Omeprazole [PriLOSEC] 20 mg PO AC-BRKFST 05/16/22 10/11/22 History Ondansetron Odt [Zofran ODT] 4 mg PO DAILY PRN 05/16/22 10/11/22 History traZODone HCL [Desyrel] 50 mg PO HS PRN 05/16/22 10/11/22 History Aspirin 81 mg PO DAILY tab 05/21/22 10/11/22 Rx Sodium Bicarbonate 325 mg PO DAILY 3 Days #3 tablet 08/28/22 10/11/22 Rx Ferrous Sulfate [Feosol] 325 mg PO DAILY 10/11/22 10/11/22 History L.acidoph,Paracasei, B.lactis 1 cap PO DAILY 10/11/22 10/11/22 History [Probiotic] Levothyroxine Sodium [Synthroid] 25 mcg PO DAILY 10/11/22 10/11/22 History Loperamide [Imodium] 2 mg PO QID PRN 10/11/22 10/11/22 History Melatonin 10 mg PO HS 10/11/22 10/11/22 History Potassium Chloride [Klor-Con M20] 20 meq PO DAILY 10/11/22 10/11/22 History Sodium Chloride [Saline Mist] 1 spray EA NOSTRIL DAILY 10/11/22 10/11/22 History Allergies Allergy/AdvReac Type Severity Reaction Status Date / Time banana AdvReac Nausea & Verified 10/11/22 11:32 Vomiting Physical Exam Vitals: Vital Signs Temp Pulse Pulse Resp BP BP Pulse Ox 10/11/22 18:49 98.2 F 77 17 93/58 91 L 10/11/22 18:35 98.5 F 83 14 91/46 92 L 10/11/22 17:33 95 18 89/46 95 10/11/22 17:15 96 18 86/40 97 10/11/22 17:03 82 20 90/42 96 10/11/22 16:57 87 20 88/49 96 10/11/22 16:31 89 18 83/50 97 10/11/22 16:15 98.9 F 90 18 97 10/11/22 15:30 100.4 F H 83 18 96/44 94 L 10/11/22 14:00 86 18 99/56 94 L 10/11/22 12:44 85 18 103/60 97 10/11/22 11:22 100.3 F H 92 18 93/52 90 L Intake and Output 10/11/22 10/11/22 10/11/22 06:59 14:59 22:59 Intake Total 100 Output Total 30 Balance -30 100 Intake: Oral 100 Output: Urine 30 Straight 30 Other: Weight 63.503 kg 63.503 kg Results CBC & Chem 7: 10/11/22 13:01 10/11/22 11:55 Labs: Abnormal Lab Results - Last 24 Hours (Table) 10/11/22 10/11/22 10/11/22 Range/Units 11:55 11:55 13:01 WBC 22.7 H (3.8-10.6) k/uL RBC 3.71 L (3.80-5.40) m/uL Neutrophils # (Manual) 19.90 H (1.3-7.7) k/uL Lymphocytes # (Manual) 0.23 L (1.0-4.8) k/uL Monocytes # (Manual) 2.27 H (0-1.0) k/uL Chloride 109 H (98-107) mmol/L Carbon Dioxide 19 L (22-30) mmol/L BUN 23 H (7-17) mg/dL Creatinine 1.95 H (0.52-1.04) mg/dL Glucose 127 H (74-99) mg/dL Urine Appearance Cloudy H (Clear) Urine Protein 2+ H (Negative) Urine Blood Large H (Negative) Ur Leukocyte Esterase Large H (Negative) Urine RBC 50 H (0-5) /hpf Urine WBC >182 H (0-5) /hpf Urine WBC Clumps Moderate H (None) /hpf Urine Bacteria Rare H (None) /hpf Urine Mucus Occasional H (None) /hpf Microbiology - Last 24 Hours (Table) 10/11/22 11:55 Urine Culture - Preliminary Urine,Catheterized
[2022-10-11] MEDS: ATORVASTATIN 80 MG TAB PO SCH (22:00)
[2022-10-11] MEDS: MELATONIN 5 MG TABLET PO SCH (22:00)
[2022-10-12] MEDS ORDERED: LEVOTHYROXINE 25 MCG TAB PO SCH (06:30)
[2022-10-12 06:59] LABS: African American GFR (CKD) 31 (>60 ml/min/1.73 sqM); Anion Gap 4 mmol/L; Blood Urea Nitrogen 29 mg/dL (7-17); Calcium 7.5 mg/dL (8.4-10.2); Carbon Dioxide 17 mmol/L (22-30); Chloride 116 mmol/L (98-107); Glucose 78 mg/dL (74-99); Non-African American GFR(CKD) 27 (>60 ml/min/1.73 sqM); Potassium 4.5 mmol/L (3.5-5.1); Sodium 137 mmol/L (137-145)
[2022-10-12] MEDS: NICOTINE 21MG/24HR PATCH TRANSDERM SCH (07:27)
[2022-10-12] MEDS: ASPIRIN 81 MG PO SCH (07:27)
[2022-10-12] MEDS: FERROUS SULFATE 325 MG TAB PO SCH (07:27)
[2022-10-12] MEDS: PANTOPRAZOLE 40 MG TABLET PO SCH (07:27)
[2022-10-12] MEDS: POTASSIUM CHLORIDE ER 20 MEQ TAB.ER PO SCH (07:27)
[2022-10-12] MEDS: LACTOBACILLUS ACIDOPH & BULGAR 1 EACH PACKET PO SCH (07:29)
[2022-10-12] MEDS: ACETAMINOPHEN TAB 325 MG TAB PO PRN ×2 (08:59→22:11)
[2022-10-12] MEDS ORDERED: ENOXAPARIN 40 MG/0.4 ML SYRINGE SQ SCH (09:00)
[2022-10-12] MEDS ORDERED: SODIUM BICARBONATE TAB 650 MG TAB PO SCH (09:00)
[2022-10-12] MEDS: SODIUM CHLORIDE 0.9% 1,000 ML IV SCH ×3 (09:05→15:00)
[2022-10-12] MEDS ORDERED: methylPREDNISolone SOD SUCCI 40 MG/ML 1 ML VIAL IV SCH (11:00)
--- NOTE | 2022-10-12 11:29 | XR ---
EXAMINATION TYPE: XR cervical spine w flex/ext DATE OF EXAM: 10/12/2022 COMPARISON: NONE HISTORY: Neck pain TECHNIQUE: Four views are submitted. FINDINGS: Lower cervical spine limited by positioning and there is loss of the normal cervical lordos is. The odontoid is intact. There are no compression deformities. The prevertebral soft tissue structur es are within normal limits. There is a anterolisthesis of C2 on C3 measuring 3.7 mm on neutral imag es, 4.2 mm flexion images, and 2.8 mm on extension images. There is multilevel severe degenerative disc disease, diffuse osteopenia and facet arthropathy. Bilat eral foraminal encroachment at virtually all levels suspected. Soft tissue ossification noted. There appears to be coarsened interstitium throughout both lung apices which may be on the basis of c hronic interstitial lung disease or interstitial pneumonitis, venous congestion. IMPRESSION: 1. There are multilevel degenerative disc disease and facet arthropathy with significant multilevel f oraminal procurement. Anterolisthesis of C2 on C3 as measured above.
--- NOTE | 2022-10-12 13:09 | CT ---
EXAMINATION TYPE: CT cervical spine wo con DATE OF EXAM: 10/12/2022 COMPARISON: 05/15/2022 HISTORY: 77-year-old female Neck pain, Rt arm weakness TECHNIQUE: Contiguous axial scanning of the cervical spine without IV contrast. Coronal and sagittal reconstructions performed. CT DLP: 333.1 mGycm Automated exposure control for dose reduction was used. FINDINGS: Emphysematous changes in the visualized upper lungs. Septal lines are present with diffuse breathing motion and trace pleural effusions. Large caliber to the main right and left pulmonary arteries sugge sting underlying pulmonary arterial hypertension. Correlate for CHF. Reversal of the normal cervical lordosis. Trace grade 1 anterolisthesis T2-T3. Remaining alignment is maintained. Atrophic uncovertebral joint arthropathy is present throughout. Also present towards the left in the upper cervical spine. There is moderate multilevel degenerative disc disease. There appears to be a component of congenital spinal canal narrowing in the cervical spine with AP canal dimension of 9 mm. Superimposed disc osteophyte complex particularly from C3 through C6 levels may contribute to further moderate to severe spinal canal stenoses. AP canal dimension narrowed down to 4 mm at C4-C5. No acute fracture of the cervical spine. At C2-C3, moderate left neuroforaminal stenosis. At C3-C4, severe right and moderate to severe left neural foraminal stenosis. At C4-C5, mild right neuroforaminal stenosis. At C5-C6, moderate right neuroforaminal stenosis. IMPRESSION: 1. REVERSAL OF THE NORMAL CERVICAL LORDOSIS. DEGENERATIVE GRADE 1 ANTEROLISTHESIS T2-T3. 2. THERE IS UNDERLYING CONGENITAL SPINAL CANAL STENOSIS BUT WITH SUPERIMPOSED MODERATE MULTILEVEL DEG ENERATIVE DISC DISEASE AND UNCOVERTEBRAL JOINT ARTHROPATHY. 3. CHANGES CONTRIBUTE TO OVERALL MODERATE TO SEVERE SPINAL CANAL STENOSES AT C3-C4, C4-C5, C5-C6. CON COOK CASHIER FOOD PREP FURTHER MRI EVALUATION. 4. VARIABLE NEUROFORAMINAL STENOSES OUTLINED ABOVE, SEVERE ON THE RIGHT AND MODERATE TO SEVERE ON THE LEFT AT C3-C4. 5. CHANGES IN THE VISUALIZED UPPER CHEST INCLUDING COPD, SEPTAL LINES, TRACE EFFUSIONS, AND PULMONARY ARTERIAL HYPERTENSION. CORRELATE FOR SUPERIMPOSED MILD CHF.
--- NOTE | 2022-10-12 13:55 | P.PN ---
Progress Note - Text Progress Note Date: 10/12/22 Chief Complaint: Feeling weak This is a pleasant 77-year-old patient, follows with Dr. Riley. Chronic stable medical conditions include COPD, hypertension, , pulmonary fibrosis, hypothyroid, cognitive impairment. has a legal guardian Kina Rust. Patient lives alone and takes care of herself. In physical therapy arrived today they found the patient was weak and not able to get out of bed. Patient is started vomiting. According to the daughter to the EMS personnel patient has not been eating much for last 2 days. Weak tired rundown. Because of cognitive impairment patient not a very good historian. Had a fever of 100.4 in the ER. Urine came back infected appearing Admitted with acute UTI with cystitis, acute kidney injury from dehydration, acute medical asthenia. 10/12/2022: Sitting up in a recliner. Feeling better. Complaining of right arm weakness and neck pain from this morning. Not able to move her neck well. Was having trouble having breakfast. Concern about radiculopathy. No change in speech or lower extremity weakness. Computed tomography scan of the cervical spine x-ray also consult done. IV Solu-Medrol started. Active Medications Acetaminophen (Acetaminophen Tab 325 Mg Tab) 650 mg PO Q6HR PRN PRN Reason: Mild Pain or Fever > 100.5 Last Admin: 10/12/22 08:59 Dose: 650 mg Aspirin (Aspirin 81 Mg) 81 mg PO DAILY [facility] Last Admin: 10/12/22 07:27 Dose: 81 mg Atorvastatin Calcium (Atorvastatin 80 Mg Tab) 80 mg PO HS [facility] Last Admin: 10/11/22 22:00 Dose: 80 mg Calcium Carbonate/Glycine (Calcium Carbonate 500 Mg Chewable) 1,000 mg PO Q4HR PRN PRN Reason: Dyspepsia Enoxaparin Sodium (Enoxaparin 30 Mg/0.3 Ml Syringe) 30 mg SQ DAILY [facility] Ferrous Sulfate (Ferrous Sulfate 325 Mg Tab) 325 mg PO DAILY [facility] Last Admin: 10/12/22 07:27 Dose: 325 mg Sodium Chloride (Saline 0.9%) 1,000 mls @ 130 mls/hr IV .Q7H42M [facility] Last Admin: 10/12/22 09:07 Dose: Not Given Lactobacillus Acidoph/Bulgaricus (Lactobacillus Acidoph & Bulgar 1 Each Packet) 1 each PO DAILY [facility] Last Admin: 10/12/22 07:29 Dose: 1 each Lactulose (Lactulose 20 Gm/30 Ml Cup) 20 gm PO DAILY PRN PRN Reason: Constipation Loperamide HCl (Loperamide 2 Mg Cap) 2 mg PO QID PRN PRN Reason: Diarrhea Last Admin: 10/12/22 09:01 Dose: 2 mg Melatonin (Melatonin 5 Mg Tablet) 10 mg PO HS [facility] Last Admin: 10/11/22 22:00 Dose: 10 mg Methylprednisolone Sodium Succinate (Methylprednisolone Sod Succi 40 Mg/Ml 1 Ml Vial) 40 mg IV Q8H [facility] Last Admin: 10/12/22 11:33 Dose: 40 mg Naloxone HCl (Naloxone 0.4 Mg/Ml 1 Ml Vial) 0.2 mg IV Q2M PRN PRN Reason: Opioid Reversal Nicotine (Nicotine 21mg/24hr Patch) 1 patch TRANSDERM DAILY [facility] Last Admin: 10/12/22 07:27 Dose: 1 patch Ondansetron HCl (Ondansetron 4 Mg/2 Ml Vial) 4 mg IVP Q8HR PRN PRN Reason: Nausea And Vomiting Pantoprazole Sodium (Pantoprazole 40 Mg Tablet) 40 mg PO AC-BRKFST [facility] Last Admin: 10/12/22 07:27 Dose: 40 mg Potassium Chloride (Potassium Chloride Er 20 Meq Tab.Er) 20 meq PO DAILY [facility] Last Admin: 10/12/22 07:27 Dose: 20 meq Sodium Bicarbonate (Sodium Bicarbonate Tab 650 Mg Tab) 325 mg PO DAILY [facility] Last Admin: 10/12/22 07:27 Dose: 325 mg Trazodone HCl (Trazodone Hcl 50 Mg Tab) 50 mg PO HS PRN PRN Reason: Insomnia Past medical history to include: COPD, hypertension, , pulmonary fibrosis, incontinence, cognitive impairment Social history: Lives alone. Smokes cigarettes. Has a legal guardian Layla Rust. Family supplies her with frozen meals. No alcohol. Has been smoking since a teenager. Physical examination: VITAL SIGNS: 98.8, 98, 20, 93/60, 93% room air GENERAL: In a recliner. Muscle muscle mass and loss of subcutaneous tissue fat EYES: Pupils equal. Conjunctiva normal. HEENT: External appearance of nose and ears normal, oral cavity grossly normal. NECK: JVD not raised; masses not palpable. HEART: First and second heart sounds are normal; no edema. LUNGS: Respiratory rate normal; increased breath sounds. ABDOMEN: Soft, nontender, liver spleen not palpable, no masses palpable. PSYCH: Able to answer simple questions. Mild anxiety. l. MUSCULOSKELETAL:No Clubbing/cyanosis;muscles-grossly intact. Evidence of OA. . Decreased muscle mass. NEUROLOGICAL: Increase tread cutter in the right arm.. Some weakness in the ulnar distribution.. INVESTIGATIONS, reviewed in the clinical context: 10/12/2022: Bicarbonate 17 BUN 29 creatinine 1.80 Computed tomography scan cervical spine: Serum portable is multilevel DJD, including C3-C4/C4-C5/C5-C6. Variable neuroforamen stenosis. Cervical spine x-ray: Multilevel DJD changes. White count 22.7 hemoglobin 11.4 platelets 218 potassium 4.9 BUN 23 creatinine 1.95 UA positive for leukoesterase, negative for nitrite, WBC 182 Influenza type A/diabetes/RSV/COVID-19: Not detected Chest x-ray film personally reviewed by me-possible chronic fibrotic changes Assessment and plan: -Acute kidney injury, predominantly prerenal from vomiting.: Slow to respond IV fluids. Patient creatinine was 0.96 on 09/04/2022 -New onset of right arm radiculopathy weakness with acute neck pain. X-ray computed tomography scan showing multiple level spinal stenosis and foraminotomy narrowing.: New diagnosis IV Solu-Medrol 40 mg every 8. Consult orthopedics -Multiple level DJD cervical spine with spinal stenosis -Acute UTI with cystitis Keflex -Acute medical asthenia from renal failure Increase activity as tolerated. PTOT -Mild protein calorie micturition from decreased oral intake Ensure new -COPD in a current smoker Albuterol when necessary. -Chronic nicotine dependence, cigarette smoker Nicotine patch -Primary osteoarthritis Tylenol when necessary -Pulmonary fibrosis, chronic -Cognitive impairment. -Left ovarian cyst 2.8 cm -GERD Prilosec -Legal guardian, Kina Barrera X-rays cervical spine computed tomography scan reviewed. IV Solu-Medrol started. Continue IV fluids. Follow labs.
[2022-10-12] MEDS: SODIUM BICARBONATE TAB 650 MG TAB PO SCH ×2 (15:55→22:10)
--- NOTE | 2022-10-12 16:00 | CT ---
EXAMINATION TYPE: CT brain wo con CT DLP: 1114.4 mGycm, Automated exposure control for dose reduction was used. DATE OF EXAM: 10/12/2022 3:43 PM COMPARISON: CT brain 05/15/2022 CLINICAL INDICATION:Female, 77 years old with history of headache, neuro deficit, headache, neuro def icit TECHNIQUE: Brain: Multiple axial CT images of the brain were obtained without IV contrast. Coronal and sagittal reformats reviewed. FINDINGS: Brain: Extra-axial spaces: No abnormal extra-axial fluid collections. Ventricular system: Within normal limits Cerebral parenchyma: No acute intraparenchymal hemorrhage or mass effect. Small region of low attenua tion without loss of burgos-white differentiation within the right frontal lobe (series 232, image 34). This is not definitively visualized on prior CT. The burgos-white junction is well differentiated. Sca ttered hypoattenuating areas are seen within the white matter. Cerebellum: Unremarkable. Mass effect: No evidence of midline shift. Intracranial vasculature: Atherosclerotic calcifications of the intracranial vessels. Soft tissues: Normal. Calvarium/osseous structures: No depressed skull fracture. Paranasal sinuses and mastoid air cells: Clear Visualized orbits: The lenses are surgically removed from the globes. IMPRESSION: 1. No acute hemorrhage or mass effect. 2. Small region of low attenuation within the right frontal lobe without loss of burgos-white differen tiation. This may represent age-indeterminate small vessel ischemic disease versus other etiologies s uch as demyelination. Consider further evaluation with MRI brain. 3. Nonspecific white matter changes, likely secondary to chronic small vessel ischemic disease.
--- NOTE | 2022-10-12 17:39 | P.CNOR ---
History of Present Illness - [facility] Consult date: 10/12/22 Requesting physician: Bassem Rees Consult reason: other (R arm weakness,neck pain) History of present illness: Patient is a 77-year-old female who presented to the emergency department via EMS from home with a chief complaint of weakness. [facility] and discharge home 2 days ago. Patient says earlier is morning she was too weak to get out of bed. Patient does have a past medical history of COPD, hypertension, pulmonary fibrosis, cognitive impairment. Patient says she does live alone. Since coming to the hospital. Patient says that she is unable to feed herself because she is losing control/function of her right hand. She says she is unable to use her cell phone because "her right hand will not work". Patient also notes some weakness as she says she is unable to raise her arms above her head fully. Patient says she does normally use walker to ambulate. Patient denies any falls/traumas recently. Patient denies any previous spine s urgeries. Patient also mentions she does have a headache at bedside. Patient denies any loss of bowel/bladder control. Patient denies saddle anesthesia. Patient denies chest pain, fever, increasing shortness of breath, nausea, vomiting, change in vision. Past Medical History Past Medical History: COPD, Hypertension, Thyroid Disorder Additional Past Medical History / Comment(s): Pulmonary fibrosis, benign colon polyps, bowel incontinence, hypothyroid, protein calorie malnutrition, mild cognitive impairment on Aricept with guardian History of Any Multi-Drug Resistant Organisms: ESBL Year Discovered:: 05/16/22 MDRO Source:: ESBL URINE Past Surgical History: Back Surgery, Cholecystectomy, Orthopedic Surgery Additional Past Surgical History / Comment(s): R hip gamma nail/plate, R shoulder fracture with surgery with pins, colonoscopies, bilateral cataract removals/lens implants. Past Anesthesia/Blood Transfusion Reactions: No Reported Reaction Past Psychological History: No Psychological Hx Reported Additional Psychological History / Comment(s): Pt's yas, Diana Rust is pt's legal guardian. Pt resides alone, her guardian's yas-in-law checks on pt frequently and her yas calls her daily. Pt uses a walker occasionally. She drives short/familiar distances. Family supplies pt with frozen meals, pt is a poor eater. Smoking Status: Current every day smoker Past Alcohol Use History: None Reported Additional Past Alcohol Use History / Comment(s): Pt started smoking as a teen. She smokes 2-3 ppd. Past Drug Use History: None Reported - Past Family History Mother Family Medical History: Cancer Additional Family Medical History / Comment(s): Breast Father Family Medical History: Eye Disorder Additional Family Medical History / Comment(s): Father went blind as a adult, cause unknown. Medications and Allergies Home Medications Medication Instructions Recorded Confirmed Type Atorvastatin Calcium [Lipitor] 80 mg PO HS 05/16/22 10/11/22 History Omeprazole [PriLOSEC] 20 mg PO AC-BRKFST 05/16/22 10/11/22 History Ondansetron Odt [Zofran ODT] 4 mg PO DAILY PRN 05/16/22 10/11/22 History traZODone HCL [Desyrel] 50 mg PO HS PRN 05/16/22 10/11/22 History Aspirin 81 mg PO DAILY tab 05/21/22 10/11/22 Rx Sodium Bicarbonate 325 mg PO DAILY 3 Days #3 tablet 08/28/22 10/11/22 Rx Ferrous Sulfate [Feosol] 325 mg PO DAILY 10/11/22 10/11/22 History L.acidoph,Paracasei, B.lactis 1 cap PO DAILY 10/11/22 10/11/22 History [Probiotic] Levothyroxine Sodium [Synthroid] 25 mcg PO DAILY 10/11/22 10/11/22 History Loperamide [Imodium] 2 mg PO QID PRN 10/11/22 10/11/22 History Melatonin 10 mg PO HS 10/11/22 10/11/22 History Potassium Chloride [Klor-Con M20] 20 meq PO DAILY 10/11/22 10/11/22 History Sodium Chloride [Saline Mist] 1 spray EA NOSTRIL DAILY 10/11/22 10/11/22 History Allergies Allergy/AdvReac Type Severity Reaction Status Date / Time banana AdvReac Nausea & Verified 10/11/22 11:32 Vomiting Physical Examination Inspection: Negative for any open fractures, significant ecchymosis/erythema/ulcers. Patient appears to have a resting tremor in bilateral hands during exam. Sensation: Sensation is equal, symmetric, bilaterally intact throughout the upper and lower extremities. Palpation: There is some moderate tenderness to palpation over the midline at the cervical spine as well as both shoulder blades. NTTP throughout rest exam Range of motion: Patient does have limited range of motion in bilateral upper extremities in shoulder forward elevation. Patient only able to forward elevate to 95 bilaterally. Abduction and external and internal rotation are limited in the shoulders as well. Patient has full range of motion bilaterally in the elbows and wrists in flexion/extension. Patient has full range of motion in bilateral lower extremities. Motor: 4+/5 in all major motor groups in bilateral lower extremities. 4-/5 in resisted shoulder forward elevation, abduction, external/internal rotation. 4/5 in resisted bilateral elbow flexion/extension and wrist flexion/extension. Neurovascular status: Radial pulses intact, 2+ bilaterally. Cap refill under 3 seconds in digits of upper extremities. Special tests: Negative clonus bilaterally. Negative Yamile bilaterally. Negative Homans bilaterally. Positive Spurling bilaterally. Results - Labs Labs: Abnormal Lab Results - Last 24 Hours (Table) 10/12/22 Range/Units 06:25 Chloride 116 H (98-107) mmol/L Carbon Dioxide 17 L (22-30) mmol/L BUN 29 H (7-17) mg/dL Creatinine 1.80 H (0.52-1.04) mg/dL Calcium 7.5 L (8.4-10.2) mg/dL Microbiology - Last 24 Hours (Table) 10/11/22 11:55 Urine Culture - Preliminary Urine,Catheterized H & H 10/11/22 Range/Units 13:01 Hgb 11.4 (11.4-16.0) gm/dL Hct 35.4 (34.0-46.0) % Result Diagrams: 10/11/22 13:01 10/12/22 06:25 - Diagnostic results CT scan - cervical: report reviewed, image reviewed (CT of cervical spine does demonstrate cervical spondylosis as well as spinal cord stenosis and neural foraminal stenosis throughout the cervical spine.) Assessment and Plan Assessment: 1. Bilateral upper extremity weakness; cervical spondylosis; cervical spinal cord stenosis and neuroforaminal stenosis Plan: 1. Bilateral upper extremity weakness; cervical spondylosis; cervical spinal cord stenosis and neuroforaminal stenosis - CT of cervical spine does demonstrate cervical spondylosis as well as spinal cord stenosis and neural foraminal stenosis throughout the cervical spine. This may be contributing to some of the patient's symptoms in bilateral upper extremities. We will start the patient on Decadron 4 mg every 6 hours IVPB. MRI of cervical spine has been ordered for further evaluation. Patient may weight-bear as tolerated with walker and assistance. We'll continue to follow patient during her stay in hospital. 2. Appreciate medical management 3. Pain management - , Tylenol 4. DVT prophylaxis - Lovenox; aspirin 5. GI prophylaxis - tums; Protonix; lactulose 6. PT/OT - weightbearing as tolerated with walker and assistance 7. Encourage incentive spirometer use 8. Appreciate consult Time with Patient: Less than 30
--- NOTE | 2022-10-12 20:23 | P.PN ---
Progress Note - Text Progress Note Date: 10/12/22 I have reviewed note of Sukhwinder Kelly Pt and I agree. CT of C spine reviewed. Pt has severe kyphotic Cervical and cervicothoracic deformity and [id number] deformity due to spondylosis, disc collapse, severe facet arthrosis and degenerative changes. Kypohotic alignment is nearing 30 deg past neutral. Most levels collapsed. This causes moderate to severe stenosis from C3-T3. NO fractures noted. C0-1 AND C1-2 appear stable at this time. She would need extensive surgery to correct deformity and to decompress nerves in form of two stage procedure first from the anterior from C3-7 ACDF followed by C2-T4 decompression and fusion. She would have to be stable for this as well as symptomatically warrent it. We will continue to monitor and treat conservative to start with medications, PT/OT, Soft cervical collar. Neurology input appreciated.
[2022-10-12] MEDS ORDERED: ONDANSETRON 4 MG/2 ML VIAL IVP PRN (21:32)
[2022-10-12] MEDS: MELATONIN 5 MG TABLET PO SCH (22:10)
[2022-10-12] MEDS: ATORVASTATIN 80 MG TAB PO SCH (22:10)
[2022-10-12] MEDS: DEXAMETHASONE SOD PHOSPHATE 4 MG/ML 1 ML VIAL IVP SCH (23:30)
[2022-10-13] MEDS: DEXAMETHASONE SOD PHOSPHATE 4 MG/ML 1 ML VIAL IVP SCH ×4 (04:00→21:33)
[2022-10-13] MEDS: PANTOPRAZOLE 40 MG TABLET PO SCH (06:19)
[2022-10-13] MEDS: ACETAMINOPHEN TAB 325 MG TAB PO PRN (06:19)
--- NOTE | 2022-10-13 07:41 | P.PN ---
Subjective Progress Note Date: 10/13/22 Pt s/e. She is sitting up in her chair eating some breakfast. She states she came to the hospital when her legs just gave out and her hands are not working as well as they used to. She states she has not been walking since she has been here in the hospital. She states no neck or back pain. States no pain down her arms or into her legs. She states no bowel or bladder issues at this time. Objective - Vital Signs Vital signs: Vital Signs Temp 98.6 F 10/12/22 19:20 Pulse 72 10/12/22 19:20 Resp 17 10/12/22 19:20 BP 146/88 10/12/22 23:20 Pulse Ox 92 L 10/12/22 19:20 FiO2 Intake & Output 10/12/22 10/13/22 10/13/22 18:59 06:59 18:59 Other: # Voids 2 # Bowel Movements 3 - Exam Physical Exam: -Patient is alert and oriented 3 appears well-nourished well-hydrated is in no acute distress. They do not appear septic. -There is no tenderness to palpation -Upper extremities show 4- out of 5 strength in all major muscle groups. -Lower extremities with 3+ out of 5 strength in all major muscle groups -There is [FROM] that is [painless] of the b/l UE and LE in all major joints. negative logroll straight leg raise -They are intact to light touch sensation in C5 to T1 and L2 to S1 nerve distribution. -DTR [2]/4 all upper and lower extremities -Patient has palpable distal pulses all 4 ext -Compartments are soft and compressible. -Patient shows a negative Lazaro's [-Neg Hoffmans b/l] 10-20 beats of clonus bilateral lower extremities [-Neg babinski b/l] Cranial nerves II through XII are grossly intact. - Labs CBC & Chem 7: 10/11/22 13:01 10/12/22 06:25 Labs: Microbiology - Last 24 Hours (Table) 10/11/22 15:30 Blood Culture - Preliminary Blood No Growth after 24 hours 10/11/22 15:45 Blood Culture - Preliminary Blood No Growth after 24 hours 10/11/22 11:55 Urine Culture - Preliminary Urine,Catheterized Gram Neg Bacilli Assessment and Plan Assessment: 77-year-old female with cervical thoracic deformity cervical spondylosis with myelopathic like symptoms Plan: discussed different options with the patient. - Recommend conservative management to start with steroids and anti-inflamm atories gabapentin and any pain control necessary. Recommend PT OT as well - discussed with her that she would needs extensive surgery to fix her neck. She is presenting somewhat myelopathic however this is compounded by her medical history as well as the potential of stroke - appreciate neurology recommendation - primary medical management at this time we will see how she does with conservative measures first
[2022-10-13] MEDS: SODIUM CHLORIDE 0.9% 1,000 ML IV SCH ×2 (08:46→12:48)
[2022-10-13 08:54] LABS: African American GFR (CKD) 52 (>60 ml/min/1.73 sqM); Anion Gap 5 mmol/L; Blood Urea Nitrogen 27 mg/dL (7-17); Calcium 8.6 mg/dL (8.4-10.2); Carbon Dioxide 18 mmol/L (22-30); Chloride 114 mmol/L (98-107); Glucose 105 mg/dL (74-99); Non-African American GFR(CKD) 45 (>60 ml/min/1.73 sqM); Sodium 137 mmol/L (137-145)
[2022-10-13] MEDS ORDERED: ENOXAPARIN 30 MG/0.3 ML SYRINGE SQ SCH (09:00)
[2022-10-13] MEDS: POTASSIUM CHLORIDE ER 20 MEQ TAB.ER PO SCH (09:42)
[2022-10-13] MEDS: ASPIRIN 81 MG PO SCH (09:42)
[2022-10-13] MEDS: LACTOBACILLUS ACIDOPH & BULGAR 1 EACH PACKET PO SCH (09:42)
[2022-10-13] MEDS: FERROUS SULFATE 325 MG TAB PO SCH (09:42)
[2022-10-13] MEDS: SODIUM BICARBONATE TAB 650 MG TAB PO SCH ×3 (09:43→21:33)
[2022-10-13] MEDS: NICOTINE 21MG/24HR PATCH TRANSDERM SCH (09:43)
--- NOTE | 2022-10-13 15:33 | P.PN ---
Subjective Patient is admitted for acute renal failure renal azotemia secondary to nausea or vomiting patient improved with IV fluids although patient has hyperchloremia because of which patient's IV fluids will be changed to lactated Ringer's. Patient is otherwise clinically doing well. Constitutional: Denied any fatigue denied any fever. Cardio vascular: denied any chest pain, palpitations Gastrointestinal denied any nausea vomiting Pulmonary: Denied any shortness of breath cough Neurologic denied any new focal deficits All inpatient medications were reviewed and appropriate changes in these medications as dictated in the interval history and assessment and plan. PHYSICAL EXAMINATION: GENERAL: The patient is alert and oriented x3, not in any acute distress. Well developed, well nourished. HEENT: Pupils are round and equally reacting to light. EOMI. No scleral icterus. No conjunctival pallor. Normocephalic, atraumatic. No pharyngeal erythema. No thyromegaly. CARDIOVASCULAR: S1 and S2 present. No murmurs, rubs, or gallops. PULMONARY: Chest is clear to auscultation, no wheezing or crackles. ABDOMEN: Soft, nontender, nondistended, normoactive bowel sounds. No palpable organomegaly. MUSCULOSKELETAL: No joint swelling or deformity. EXTREMITIES: No cyanosis, clubbing, or pedal edema. NEUROLOGICAL: Gross neurological examination did not reveal any focal deficits. SKIN: No rashes. Assessment and plan: -Acute renal failure prerenal azotemia secondary to nausea vomiting which improved at this time patient IV fluids will be switched to lactated Ringer's because of hyperchloremia -Right arm pain with radiculopathy patient had spinal stenosis and the foraminal narrowing. Patient is on systemic steroids at this time. Although with surgery is recommending MRI -Patient is also being treated for cystitis with antibiotics that is Rocephin COPD without any acute exacerbation -History of pulmonary fibrosis -Moderate dementia probably senile -Gastroesophageal reflux disease - Objective - Vital Signs Vital signs: Vital Signs Temp 97.7 F 10/13/22 13:52 Pulse 76 10/13/22 13:52 Resp 18 10/13/22 13:52 BP 166/72 10/13/22 13:52 Pulse Ox 98 10/13/22 13:52 FiO2 Intake & Output 10/12/22 10/13/22 10/13/22 18:59 06:59 18:59 Output Total 2 Balance -2 Output: Urine/Stool Mix 2 Other: # Voids 2 # Bowel Movements 3 - Labs CBC & Chem 7: 10/11/22 13:01 10/13/22 08:01 Labs: Abnormal Lab Results - Last 24 Hours (Table) 10/13/22 Range/Units 08:01 Chloride 114 H (98-107) mmol/L Carbon Dioxide 18 L (22-30) mmol/L BUN 27 H (7-17) mg/dL Creatinine 1.17 H (0.52-1.04) mg/dL Glucose 105 H (74-99) mg/dL Microbiology - Last 24 Hours (Table) 10/11/22 15:30 Blood Culture - Preliminary Blood No Growth after 24 hours 10/11/22 15:45 Blood Culture - Preliminary Blood No Growth after 24 hours 10/11/22 11:55 Urine Culture - Preliminary Urine,Catheterized Gram Neg Bacilli
[2022-10-13] MEDS: ATORVASTATIN 80 MG TAB PO SCH (21:33)
[2022-10-13] MEDS: MELATONIN 5 MG TABLET PO SCH (21:33)
[2022-10-14] MEDS: DEXAMETHASONE SOD PHOSPHATE 4 MG/ML 1 ML VIAL IVP SCH ×4 (01:43→21:00)
[2022-10-14] MEDS: PANTOPRAZOLE 40 MG TABLET PO SCH (06:33)
[2022-10-14] MEDS: ASPIRIN 81 MG PO SCH (08:49)
[2022-10-14] MEDS: FERROUS SULFATE 325 MG TAB PO SCH (08:49)
[2022-10-14] MEDS: ENOXAPARIN 40 MG/0.4 ML SYRINGE SQ SCH (08:50)
[2022-10-14] MEDS: LACTOBACILLUS ACIDOPH & BULGAR 1 EACH PACKET PO SCH (08:50)
[2022-10-14] MEDS: POTASSIUM CHLORIDE ER 20 MEQ TAB.ER PO SCH (08:50)
[2022-10-14] MEDS: SODIUM BICARBONATE TAB 650 MG TAB PO SCH ×3 (08:50→21:01)
[2022-10-14] MEDS: NICOTINE 21MG/24HR PATCH TRANSDERM SCH (08:50)
[2022-10-14 08:59] LABS: Basophils # (A) 0.01 X 10*3/uL (0.00-0.10); Basophils % (A) 0.2 %; Eosinophils # (A) 0 X 10*3/uL (0.04-0.35); Eosinophils % (A) 0 %; HCT 32.3 % (37.2-46.3); Immature Grans, Automated 0.5 %; Lymphocytes # (A) 1.32 X 10*3/uL (0.90-5.00); MCH 30.4 pg (27.0-32.0); MCV 98.2 fL (80.0-97.0); Monocytes # (A) 0.25 X 10*3/uL (0.20-1.00); NRBC Per 100 WBC 0 /100 WBCS (0.0-0.0); Neutrophils # (A) 4.68 X 10*3/uL (1.80-7.70); Neutrophils % (A) 74.3 %; Platelet Count 190 X 10*3/uL (140-440); RBC 3.29 X 10*6/uL (4.10-5.20); RDW 15.6 % (11.5-14.5); WBC 6.29 X 10*3/uL (4.50-10.00)
--- NOTE | 2022-10-14 09:07 | P.PN ---
Subjective Progress Note Date: 10/14/22 Principal diagnosis: Bilateral upper extremity weakness; cervical spondylosis; cervical spinal cord stenosis and neuroforaminal stenosis Patient was seen at bedside this morning sitting up in chair. Patient says she is looking forward to walk around the room today with therapy/assistance. Patient says some of her symptoms in her upper extremities have been easing over the past couple days. Patient says she is still having somewhat of a difficult time feeding herself and using her phone. Patient mentions she is still having some neck pain at this time. Patient says she is not having headache. Patient denies chest pain, fever, shortness of breath, nausea, vomiting, change in vision, loss of bowel/bladder control. Objective - Vital Signs Vital signs: Vital Signs Temp 97.8 F 10/14/22 06:55 Pulse 69 10/14/22 07:19 Resp 18 10/14/22 06:55 BP 141/60 10/14/22 07:19 Pulse Ox 97 10/14/22 06:55 FiO2 Intake & Output 10/13/22 10/14/22 10/14/22 18:59 06:59 18:59 Intake Total 1200 Output Total 2 Balance 1198 Intake: Intake, IV Titration 1200 Amount Sodium Chloride 0.9% 1, 1200 000 ml @ 100 mls/hr IV . Q10H [facility] Rx#:[id number] Output: Urine/Stool Mix 2 Other: Voiding Method Diaper Incontinent # Voids 2 2 - Exam Inspection: Negative for any open fractures, significant ecchymosis/erythema/ulcers. Patient appears to have a resting tremor in bilater al hands during exam. Sensation: Sensation is equal, symmetric, bilaterally intact throughout the u pper and lower extremities. Palpation: There is some moderate tenderness to palpation over the midline at the cervical spine as well as both shoulder blades. NTTP throughout rest exam Range of motion: Patient does have limited range of motion in bilateral upper extremities in shoulder forward elevation. Patient only able to forward elevate to 110 bilaterally. Abduction and external and internal rotation are limited in the shoulders as well. Patient has full range of motion bilaterally in the elbows and wrists in flexion/extension. Patient has full range of motion in bilateral lower extremities. Motor: 4+/5 in all major motor groups in bilateral lower extremities. 4-/5 in resisted shoulder forward elevation, abduction, external/internal rotation. 4/5 in resisted bilateral elbow flexion/extension and wrist flexion/extension. Neurovascular status: Radial pulses intact, 2+ bilaterally. Cap refill under 3 seconds in digits of upper extremities. Special tests: Positive clonus bilaterally. Negative Yamile bilaterally. Negative Homans bilaterally. Positive Spurling bilaterally. - Labs CBC & Chem 7: 10/14/22 06:18 10/13/22 08:01 Labs: Abnormal Lab Results - Last 24 Hours (Table) 10/14/22 Range/Units 06:18 RBC 3.29 L (4.10-5.20) X 10*6/uL Hgb 10.0 L (12.0-15.0) g/dL Hct 32.3 L (37.2-46.3) % MCV 98.2 H (80.0-97.0) fL MCHC 31.0 L (32.0-37.0) g/dL RDW 15.6 H (11.5-14.5) % Eosinophils # 0 L (0.04-0.35) X 10*3/uL Microbiology - Last 24 Hours (Table) 10/11/22 11:55 Urine Culture - Final Urine,Catheterized Proteus mirabilis 10/11/22 15:45 Blood Culture - Preliminary Blood No Growth after 48 hours 10/11/22 15:30 Blood Culture - Preliminary Blood No Growth after 48 hours Assessment and Plan Assessment: 1. Bilateral upper extremity weakness; cervical spondylosis; cervical spinal cord stenosis and neuroforaminal stenosis Plan: 1. Bilateral upper extremity weakness; cervical spondylosis; cervical spinal cord stenosis and neuroforaminal stenosis - CT of cervical spine does demonstrate cervical spondylosis as well as spinal cord stenosis and neural foraminal stenosis throughout the cervical spine. This may be contributing to some of the patient's symptoms in bilateral upper extremities. patient on Decadron 4 mg every 6 hours IVPB. Some of patient's symptoms in the upper extremities have been alleviated since starting steroids. MRI of cervical spine has been ordered for further evaluation. Patient may weight-bear as tolerated with walker and assistance. We'll continue to follow patient during her stay in hospital. 2. Appreciate medical management 3. Pain management - , Tylenol 4. DVT prophylaxis - Lovenox; aspirin 5. GI prophylaxis - tums; Protonix; lactulose 6. PT/OT - weightbearing as tolerated with walker and assistance 7. Encourage incentive spirometer use 8. Appreciate consult Time with Patient: Less than 30
[2022-10-14 09:13] LABS: Anion Gap 11.3 mmol/L (10.00-18.00); BUN/Creat Ratio 23.97 Ratio (12.00-20.00); Blood Urea Nitrogen 23.2 mg/dL (9.0-27.0); Carbon Dioxide 18.7 mmol/L (20.0-27.5); Non-African American GFR(CKD) 56.1 (60.0-200.0); Potassium 4.9 mmol/L (3.5-5.5)
--- NOTE | 2022-10-14 13:41 | P.PN ---
Subjective Progress Note Date: 10/14/22 Patient is admitted for acute renal failure renal azotemia secondary to nausea or vomiting patient improved with IV fluids although patient has hyperchloremia because of which patient's IV fluids will be changed to lactated Ringer's. Patient is otherwise clinically doing well. 10/14/2022 Patient is evaluated today on medical floor. Urine culture has finalized as proteus miribilits with sensitivity to IV ceftriaxone which will be continued at this time. Orthopedics is currently recommending IV decadron and monitoring for improvement in upper extremity numbness/tingling. Patient currently is denying any radiculopathy and reports overall a significant improvement in symptoms. Brain CT is showing as possible demyelination and recommending follow up MRI. Patient is scheduled to undergo cervical spine MRI for follow up and further evaluation for severe cervical canal stenosis. She is monitored off IV fluids. White count has normalized today it is 6.29. Hemoglobin stable. Kidney function has normalized. Patient remains afebrile, heart rate of 69, and blood pressure 141/60, 97% on room air. Review of Systems Constitutional: Denied any fatigue denied any fever. Cardio vascular: denied any chest pain, palpitations Gastrointestinal denied any nausea vomiting Pulmonary: Denied any shortness of breath cough Neurologic denied any new focal deficits All inpatient medications were reviewed and appropriate changes in these medications as dictated in the interval history and assessment and plan. PHYSICAL EXAMINATION: GENERAL: The patient is alert and oriented x3, not in any acute distress. Well developed, well nourished. HEENT: Pupils are round and equally reacting to light. EOMI. No scleral icterus. No conjunctival pallor. Normocephalic, atraumatic. No pharyngeal erythema. No thyromegaly. CARDIOVASCULAR: S1 and S2 present. No murmurs, rubs, or gallops. PULMONARY: Chest is clear to auscultation, no wheezing or crackles. ABDOMEN: Soft, nontender, nondistended, normoactive bowel sounds. No palpable organomegaly. MUSCULOSKELETAL: No joint swelling or deformity. EXTREMITIES: No cyanosis, clubbing, or pedal edema. NEUROLOGICAL: Gross neurological examination did not reveal any focal deficits. SKIN: No rashes. Assessment and plan: -Acute renal failure prerenal azotemia secondary to nausea vomiting, kidney function has normalized with IV fluids. -Right arm pain with radiculopathy patient had spinal stenosis and the foraminal narrowing. Patient is on systemic steroids at this time. Orthopedic surgery is recommending MRI -Patient is also being treated for cystitis with antibiotics that is Rocephin urine culture showing proteus miribilis -COPD without any acute exacerbation -History of pulmonary fibrosis -Moderate dementia probably senile -Gastroesophageal reflux disease GI prophylaxis DVT prophylaxis Full Code Plan Continue current medications and patient is scheduled to undergo MRI. She does report improvement in symptoms and will continue on IV decadron. Continue IV ceftriaxone and will transition to oral antibiotics on discharge. PT/OT are consulted pending evaluation. The impression and plan of care has been dictated by Lia Dillon Nurse Practitioner as directed. Dr. Dolores MD I have performed a history and physical examination and medical decision making of this patient, discussed the same with the dictator, and agree with the dictators assessment and plan as written, documented as a scribe. Based on total visit time, I have performed more than 50% of this visit. Objective - Vital Signs Vital signs: Vital Signs Temp 97.8 F 10/14/22 06:55 Pulse 69 10/14/22 07:19 Resp 18 10/14/22 06:55 BP 141/60 10/14/22 07:19 Pulse Ox 97 10/14/22 06:55 FiO2 Intake & Output 10/13/22 10/14/22 10/14/22 18:59 06:59 18:59 Intake Total 1200 Output Total 2 Balance 1198 Intake: Intake, IV Titration 1200 Amount Sodium Chloride 0.9% 1, 1200 000 ml @ 100 mls/hr IV . Q10H [facility] Rx#:[id number] Output: Urine/Stool Mix 2 Other: Voiding Method Diaper Incontinent # Voids 2 2 - Labs CBC & Chem 7: 10/14/22 06:18 10/14/22 06:18 Labs: Abnormal Lab Results - Last 24 Hours (Table) 10/14/22 Range/Units 06:18 RBC 3.29 L (4.10-5.20) X 10*6/uL Hgb 10.0 L (12.0-15.0) g/dL Hct 32.3 L (37.2-46.3) % MCV 98.2 H (80.0-97.0) fL MCHC 31.0 L (32.0-37.0) g/dL RDW 15.6 H (11.5-14.5) % Eosinophils # 0 L (0.04-0.35) X 10*3/uL Microbiology - Last 24 Hours (Table) 10/11/22 11:55 Urine Culture - Final Urine,Catheterized Proteus mirabilis 10/11/22 15:45 Blood Culture - Preliminary Blood No Growth after 48 hours 10/11/22 15:30 Blood Culture - Preliminary Blood No Growth after 48 hours Assessment and Plan Time with Patient: Less than 30
[2022-10-14] MEDS: MELATONIN 5 MG TABLET PO SCH (21:01)
[2022-10-14] MEDS: ATORVASTATIN 80 MG TAB PO SCH (21:01)
[2022-10-14] MEDS: ACETAMINOPHEN TAB 325 MG TAB PO PRN (21:05)
[2022-10-14] MEDS ORDERED: PHENAZOPYRIDINE 100 MG TAB PO PRN (22:07)
[2022-10-15] MEDS ORDERED: lisinopriL 20 MG TAB PO ONE (08:00)
--- NOTE | 2022-10-15 08:10 | P.PN ---
Subjective Progress Note Date: 10/15/22 Principal diagnosis: Bilateral upper extremity weakness Cervical spondylosis with stenosis Patient seen and examined this morning. She is resting in bed. Informed patient that we are awaiting cervical MRI to be performed to develop a plan of care. Patient states that she continues to have difficulty with the ability to feed herself, and this is her biggest concern. Patient was able to perform bed exercises with no difficulty. She denies any numbness or tingling to bilateral upper extremities. Encouraged patient to work with physical therapy today. Patient has been afebrile, denies nausea/vomiting, or chest pain. Objective - Vital Signs Vital signs: Vital Signs Temp 97.4 F L 10/15/22 07:13 Pulse 63 10/15/22 07:13 Resp 17 10/15/22 07:13 BP 144/68 10/15/22 07:13 Pulse Ox 92 L 10/15/22 07:13 FiO2 Intake & Output 10/14/22 10/15/22 10/15/22 18:59 06:59 18:59 Intake Total 300 Output Total 0 Balance 300 0 Intake: Oral 300 Output: Urine 0 Other: Voiding Method Diaper Diaper Incontinent Incontinent # Voids 2 - Exam Physical Examination General: The patient is awake and alert, in no acute distress Skin: Skin is warm and dry with no obvious rashes or lesions. Hairy patches absent, no dorsal skin dimples, no cafe au lait spots, and no surgical incisions. Eye: Pupils are equal, round and reactive to light, extra-ocular movements are intact; there is normal conjunctiva bilaterally. Neck: The neck is supple, there is no tenderness and ROM intact. Cardiovascular: There is a regular rate and rhythm. No murmur, rub or gallop is appreciated. Respiratory: Lungs are clear to auscultation, respirations are non-labored, breath sounds are equal. Gastrointestinal: Soft, non-distended, non-tender abdomen. Back: There is no tenderness to palpation in the midline, paralumbar, parathoracic or buttocks region. There is no obvious deformity . Musculoskeletal: FROM, Muscle strength in all major muscle groups of bilateral upper extremities 4/5, bilateral lower extremities 4/5. Neurological: CN 2-12 intact. There are no obvious motor or sensory deficits. Movement and coordination equal and intact. Sensory exam to light touch intact C5-T1 and intact from L2-S1. Reflexes 2/4 in bilateral upper and lower extremiti es. Negative Hoffmans, babinski, and clonus signs. Psychiatric: Cooperative, appropriate mood & affect, normal judgment. - Labs CBC & Chem 7: 10/14/22 06:18 10/14/22 06:18 Labs: Abnormal Lab Results - Last 24 Hours (Table) 10/14/22 10/14/22 Range/Units 06:18 06:18 RBC 3.29 L (4.10-5.20) X 10*6/uL Hgb 10.0 L (12.0-15.0) g/dL Hct 32.3 L (37.2-46.3) % MCV 98.2 H (80.0-97.0) fL MCHC 31.0 L (32.0-37.0) g/dL RDW 15.6 H (11.5-14.5) % Eosinophils # 0 L (0.04-0.35) X 10*3/uL Carbon Dioxide 18.7 L (20.0-27.5) mmol/L Est GFR (CKD-EPI)NonAf 56.1 L (60.0-200.0) BUN/Creatinine Ratio 23.97 H (12.00-20.00) Ratio Glucose 122 H (70-110) mg/dL Microbiology - Last 24 Hours (Table) 10/11/22 15:30 Blood Culture - Preliminary Blood No Growth after 72 hours 10/11/22 15:45 Blood Culture - Preliminary Blood No Growth after 72 hours Assessment and Plan Assessment: Bilateral upper extremity weakness Cervical spondylosis with stenosis Plan: -Appreciate homemaking rehabilitation consultant and team management. -Awaiting results of MRI of cervical spine -Activity: Ambulate QID, OOB all meals, up and about. Use walker or cane if ne eded for stability. -Daily PT/OT, increase ambulation strength and balance. -Pain control: Adequate at this time -Meds: reviewed -DVT PPX: lovenox, aspirin -Encourage IS 10x/hr We will continue to follow *I reviewed and discussed this case with my attending Dr. Valentin, whom has reviewed this chart and films and is in agreement with assessment and plan of care as outlined above. I have personally seen and examined the patient, performed the documentation and the assessment and plan as written. Number of minutes spent on the visit: 15m.
[2022-10-15] MEDS: DEXAMETHASONE SOD PHOSPHATE 4 MG/ML 1 ML VIAL IVP SCH ×4 (08:56→21:08)
[2022-10-15 08:59] LABS: Basophils % (A) 0 %; Eosinophils # (A) 0.1 k/uL (0-0.7); Eosinophils % (A) 1 %; HCT 31.2 % (34.0-46.0); HGB 10.3 gm/dL (11.4-16.0); Lymphocytes # (A) 1.6 k/uL (1.0-4.8); Lymphocytes % (A) 19 %; MCH 31.1 pg (25.0-35.0); MCV 94.1 fL (80.0-100.0); Mean Platelet Volume 8.9; Monocytes # (A) 0.4 k/uL (0-1.0); Monocytes % (A) 4 %; Neutrophils # (A) 6.1 k/uL (1.3-7.7); Neutrophils % (A) 74 %; Platelet Count 182 k/uL (150-450); RBC 3.32 m/uL (3.80-5.40); RDW 15.5 % (11.5-15.5); WBC 8.2 k/uL (3.8-10.6)
[2022-10-15] MEDS ORDERED: lisinopriL 10 MG TAB PO SCH (09:00)
[2022-10-15 09:19] LABS: African American GFR (CKD) 74 (>60 ml/min/1.73 sqM); Anion Gap 2 mmol/L; Blood Urea Nitrogen 24 mg/dL (7-17); Calcium 8.6 mg/dL (8.4-10.2); Carbon Dioxide 24 mmol/L (22-30); Chloride 108 mmol/L (98-107); Glucose 101 mg/dL (74-99); Non-African American GFR(CKD) 64 (>60 ml/min/1.73 sqM); Potassium 4.6 mmol/L (3.5-5.1); Sodium 134 mmol/L (137-145)
[2022-10-15] MEDS: POTASSIUM CHLORIDE ER 20 MEQ TAB.ER PO SCH (09:21)
[2022-10-15] MEDS: NICOTINE 21MG/24HR PATCH TRANSDERM SCH (09:21)
[2022-10-15] MEDS: PANTOPRAZOLE 40 MG TABLET PO SCH (09:21)
[2022-10-15] MEDS: FERROUS SULFATE 325 MG TAB PO SCH (09:21)
[2022-10-15] MEDS: ASPIRIN 81 MG PO SCH (09:21)
[2022-10-15] MEDS: ENOXAPARIN 40 MG/0.4 ML SYRINGE SQ SCH (09:21)
[2022-10-15] MEDS: SODIUM BICARBONATE TAB 650 MG TAB PO SCH ×3 (09:21→21:51)
[2022-10-15] MEDS: LACTOBACILLUS ACIDOPH & BULGAR 1 EACH PACKET PO SCH (09:22)
--- NOTE | 2022-10-15 09:35 | P.CRDCN ---
History of Present Illness Consult date: 10/15/22 History of present illness: HISTORY OF PRESENT ILLNESS: This is a 77-year-old female with a past medical history significant for hypothyroidism and hyperlipidemia. 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 We have been asked to see the patient in consultation for bradycardia. Patient examined at the bedside. Patient is admitted to the hospital secondary to right arm pain with radiculopathy, cystitis, acute kidney injury, and leukocytosis. Patient was found to be bradycardic overnight and cardiology was consulted. The patient was not on telemetry monitoring overnight. She was started on telemetry monitoring this morning which revealed sinus bradycardia. EKG completed revealing sinus bradycardia cardiac no signs of acute ischemia. The patient denies chest pain or pressure. She denies shortness of breath. She denies dizziness or lightheadedness. She denies any episodes of syncope at home. Patients blood pressure is elevated this morning with a systolic ranging between 160 and 170. * Chest xray mild cardiomegaly and COPD. Interstitial changes have increased. Correlate for CHF with pulmonary vascular congestion versus bronchitis or atypical pneumonia * Laboratory data: WBC 8.2. Hemoglobin 10.3. Platelet count 182. Sodium 134. Potassium 4.6. BUN 24. Creatinine 0.87. * Current home cardiac medications include Lipitor 80 mg at night and aspirin 81 mg daily * Most recent echocardiogram obtained in April 2022 revealed ejection fraction 60-65%, mild pulmonary hypertension, trace to mild tricuspid regurgitation REVIEW OF SYSTEMS: At the time of my exam: CONSTITUTIONAL: Denies fever or chills. HEENT: Denies blurred vision, vision changes, or eye pain. Denies hemoptysis CARDIOVASCULAR: Denies chest pain. Denies orthopnea. Denies PND. Denies palpitations RESPIRATORY: Denies shortness of breath. GASTROINTESTINAL: Denies abdominal pain. Denies nausea or vomiting. HEMATOLOGIC: Denies bleeding disorders. GENITOURINARY: Denies any blood in urine. SKIN: Denies pruitis. Denies rash. PHYSICAL EXAM: VITAL SIGNS: Reviewed. GENERAL: Well-developed in no acute distress. HEENT: Head is normocephalic. Pupils are equal, round. Sclerae anicteric. Mucous membranes of the mouth are moist. Neck supple. No JVD or thyromegaly LUNGS: Respirations even and unlabored. Lungs essentially clear to auscultation bilaterally. HEART: Regular rate and rhythm. S1 and S2 heard. ABDOMEN: Soft. Nondistended. Nontender. EXTREMITIES: Normal range of motion. No clubbing or cyanosis. Peripheral pulses intact. No lower extremity edema NEUROLOGIC: Awake and alert. Oriented x 3. ASSESSMENT: Right arm pain with radiculopathy Leukocytosis Cystitis, on antibiotics Acute kidney injury, resolved Asymptomatic sinus bradycardia Hypertension Hyperlipidemia PLAN: No need to repeat echocardiogram Begin lisinopril 10 mg twice a day for optimal blood pressure control Check TSH Continue telemetry monitoring Continue to monitor patient as she is asymptomatic in regards to her sinus bradycardia Further recommendations pending patient's course Nurse practitioner note has been reviewed by physician. Signing provider agrees with the documented findings, assessment, and plan of care. Past Medical History Past Medical History: COPD, Hypertension, Thyroid Disorder Additional Past Medical History / Comment(s): Pulmonary fibrosis, benign colon polyps, bowel incontinence, hypothyroid, protein calorie malnutrition, mild cognitive impairment on Aricept with guardian History of Any Multi-Drug Resistant Organisms: ESBL Date of last positivie culture/infection: 05/16/22 MDRO Source:: ESBL URINE Past Surgical History: Back Surgery, Cholecystectomy, Orthopedic Surgery Additional Past Surgical History / Comment(s): R hip gamma nail/plate, R shoulder fracture with surgery with pins, colonoscopies, bilateral cataract r emovals/lens implants. Past Anesthesia/Blood Transfusion Reactions: No Reported Reaction Past Psychological History: No Psychological Hx Reported Additional Psychological History / Comment(s): Pt's yas, Diana Rust is pt's legal guardian. Pt resides alone, her guardian's yas-in-law checks on pt frequently and her yas calls her daily. Pt uses a walker occasionally. She drives short/familiar distances. Family supplies pt with frozen meals, pt is a poor eater. Smoking Status: Current every day smoker Past Alcohol Use History: None Reported Additional Past Alcohol Use History / Comment(s): Pt started smoking as a teen. She smokes 2-3 ppd. Past Drug Use History: None Reported - Past Family History Mother Family Medical History: Cancer Additional Family Medical History / Comment(s): Breast Father Family Medical History: Eye Disorder Additional Family Medical History / Comment(s): Father went blind as a adult, cause unknown. Medications and Allergies Home Medications Medication Instructions Recorded Confirmed Type Atorvastatin Calcium [Lipitor] 80 mg PO HS 05/16/22 10/11/22 History Omeprazole [PriLOSEC] 20 mg PO AC-BRKFST 05/16/22 10/11/22 History Ondansetron Odt [Zofran ODT] 4 mg PO DAILY PRN 05/16/22 10/11/22 History traZODone HCL [Desyrel] 50 mg PO HS PRN 05/16/22 10/11/22 History Aspirin 81 mg PO DAILY tab 05/21/22 10/11/22 Rx Sodium Bicarbonate 325 mg PO DAILY 3 Days #3 tablet 08/28/22 10/11/22 Rx Ferrous Sulfate [Feosol] 325 mg PO DAILY 10/11/22 10/11/22 History L.acidoph,Paracasei, B.lactis 1 cap PO DAILY 10/11/22 10/11/22 History [Probiotic] Levothyroxine Sodium [Synthroid] 25 mcg PO DAILY 10/11/22 10/11/22 History Loperamide [Imodium] 2 mg PO QID PRN 10/11/22 10/11/22 History Melatonin 10 mg PO HS 10/11/22 10/11/22 History Potassium Chloride [Klor-Con M20] 20 meq PO DAILY 10/11/22 10/11/22 History Sodium Chloride [Saline Mist] 1 spray EA NOSTRIL DAILY 10/11/22 10/11/22 History Allergies Allergy/AdvReac Type Severity Reaction Status Date / Time banana AdvReac Nausea & Verified 10/11/22 11:32 Vomiting Physical Exam Vitals: Vital Signs Temp Pulse Resp BP Pulse Ox 10/15/22 09:00 170/82 10/15/22 08:09 45 L 16 169/70 95 10/15/22 07:13 97.4 F L 63 17 144/68 92 L 10/15/22 01:21 97.9 F 46 L 15 147/55 98 10/15/22 00:00 60 16 163/69 98 10/14/22 20:00 16 10/14/22 18:47 97.7 F 45 L 16 154/68 96 10/14/22 13:56 97.8 F 50 L 18 155/68 98 Intake and Output 01/15/23 01/16/23 01/16/23 22:59 06:59 14:59 Output Total 0 Balance 0 Output: Urine 0 Other: Voiding Method Diaper Incontinent # Voids 2 Results 10/15/22 08:44 10/15/22 08:44 CBC 10/15/22 Range/Units 08:44 WBC 8.2 (3.8-10.6) k/uL RBC 3.32 L (3.80-5.40) m/uL Hgb 10.3 L (11.4-16.0) gm/dL Hct 31.2 L (34.0-46.0) % Plt Count 182 (150-450) k/uL Comprehensive Metabolic Panel 10/15/22 Range/Units 08:44 Sodium 134 L (137-145) mmol/L Potassium 4.6 (3.5-5.1) mmol/L Chloride 108 H (98-107) mmol/L Carbon Dioxide 24 (22-30) mmol/L BUN 24 H (7-17) mg/dL Creatinine 0.87 (0.52-1.04) mg/dL Glucose 101 H (74-99) mg/dL Calcium 8.6 (8.4-10.2) mg/dL Current Medications Generic Name Dose Route Start Last Admin Trade Name Freq PRN Reason Stop Dose Admin Acetaminophen 650 mg 10/11/22 14:54 10/14/22 21:05 Acetaminophen Tab 325 Mg Tab PO 650 mg Q6HR PRN Administration Mild Pain or Fever > 100.5 Aspirin 81 mg 10/12/22 09:00 10/15/22 09:21 Aspirin 81 Mg PO 81 mg DAILY [facility] Administration Atorvastatin Calcium 80 mg 10/11/22 21:00 10/14/22 21:01 Atorvastatin 80 Mg Tab PO 80 mg HS [facility] Administration Calcium Carbonate/Glycine 1,000 mg 10/11/22 20:59 Calcium Carbonate 500 Mg Chewable PO Q4HR PRN Dyspepsia Dexamethasone Sodium Phosphate 4 mg 10/12/22 20:00 10/15/22 08:56 Dexamethasone Sod Phosphate 4 Mg/Ml 1 Ml Vial IVP Not Given Q6H [facility] Enoxaparin Sodium 40 mg 10/14/22 09:00 10/15/22 09:21 Enoxaparin 40 Mg/0.4 Ml Syringe SQ 40 mg DAILY [facility] Administration Ferrous Sulfate 325 mg 10/12/22 09:00 10/15/22 09:21 Ferrous Sulfate 325 Mg Tab PO 325 mg DAILY MICHELE Administration Ceftriaxone Sodium 1 gm/ 50 mls @ 100 mls/hr 10/14/22 04:00 10/15/22 04:28 Sodium Chloride IVPB 100 mls/hr Q12H MICHELE Administration Protocol Lactobacillus Acidoph/Bulgaricus 1 each 10/12/22 09:00 10/15/22 09:22 Lactobacillus Acidoph & Bulgar 1 Each Packet PO 1 each DAILY MICHELE Administration Lactulose 20 gm 10/11/22 20:59 Lactulose 20 Gm/30 Ml Cup PO DAILY PRN Constipation Lisinopril 10 mg 10/16/22 09:00 Lisinopril 10 Mg Tab PO BID MICHELE Loperamide HCl 2 mg 10/11/22 14:55 10/12/22 09:01 Loperamide 2 Mg Cap PO 2 mg QID PRN Administration Diarrhea Melatonin 10 mg 10/11/22 21:00 10/14/22 21:01 Melatonin 5 Mg Tablet PO 10 mg HS MICHELE Administration Naloxone HCl 0.2 mg 10/11/22 14:54 Naloxone 0.4 Mg/Ml 1 Ml Vial IV Q2M PRN Opioid Reversal Nicotine 1 patch 10/12/22 09:00 10/15/22 09:21 Nicotine 21mg/24hr Patch TRANSDERM 1 patch DAILY MICHELE Administration Ondansetron HCl 4 mg 10/11/22 14:54 Ondansetron 4 Mg/2 Ml Vial IVP Q8HR PRN Nausea And Vomiting Pantoprazole Sodium 40 mg 10/12/22 07:30 10/15/22 09:21 Pantoprazole 40 Mg Tablet PO 40 mg AC-BRKFST MICHELE Administration Phenazopyridine HCl 100 mg 10/14/22 22:07 Phenazopyridine 100 Mg Tab PO TID PRN See Comments Potassium Chloride 20 meq 10/12/22 09:00 10/15/22 09:21 Potassium Chloride Er 20 Meq Tab.Er PO 20 meq DAILY MICHELE Administration Sodium Bicarbonate 650 mg 10/12/22 16:00 10/15/22 09:21 Sodium Bicarbonate Tab 650 Mg Tab PO 650 mg TID MICHELE Administration Trazodone HCl 50 mg 10/11/22 14:55 10/13/22 23:50 Trazodone Hcl 50 Mg Tab PO 50 mg HS PRN Administration Insomnia Intake and Output 10/14/22 10/15/22 10/15/22 22:59 06:59 14:59 Output Total 0 Balance 0 Output: Urine 0 Other: Voiding Method Diaper Incontinent # Voids 2 10/15/22 08:44 10/15/22 08:44
--- NOTE | 2022-10-15 15:39 | P.PN ---
Subjective Progress Note Date: 10/15/22 Patient is admitted for acute renal failure renal azotemia secondary to nausea or vomiting patient improved with IV fluids although patient has hyperchloremia because of which patient's IV fluids will be changed to lactated Ringer's. Patient is otherwise clinically doing well. 10/14/2022 Patient is evaluated today on medical floor. Urine culture has finalized as proteus miribilits with sensitivity to IV ceftriaxone which will be continued at this time. Orthopedics is currently recommending IV decadron and monitoring for improvement in upper extremity numbness/tingling. Patient currently is denying any radiculopathy and reports overall a significant improvement in symptoms. Brain CT is showing as possible demyelination and recommending follow up MRI. Patient is scheduled to undergo cervical spine MRI for follow up and further evaluation for severe cervical canal stenosis. She is monitored off IV fluids. White count has normalized today it is 6.29. Hemoglobin stable. Kidney function has normalized. Patient remains afebrile, heart rate of 69, and blood pressure 141/60, 97% on room air. 10/15/2022 Patient is evaluated on medical floor. She is scheduled to undergo MRI of cervical spine today. Nursing had noted episodes of bradycardia with patient dropping as low as 38 overnight. She does report that she is not feeling well today. EKG performed showing sinus amanda with sinus arrhythmia, there are no specific ST or T wave changes noted. Labs are essentially unchanged today and stable with slight drop in sodium level to 136. Her kidney function has continued to improve. TSH is normal at 0.805. She is currently not on a beta guanaco. Blood pressure was elevated up in the 170s systolic today and lisinopril has been added. Cardiology consulted for further evaluation of the bradycardia. She continues on IV decadron. Review of Systems Constitutional: Denied any fatigue denied any fever. Cardio vascular: denied any chest pain, palpitations Gastrointestinal denied any nausea vomiting Pulmonary: Denied any shortness of breath cough Neurologic denied any new focal deficits All inpatient medications were reviewed and appropriate changes in these medications as dictated in the interval history and assessment and plan. PHYSICAL EXAMINATION: GENERAL: The patient is alert and oriented x3, not in any acute distress. Well developed, well nourished. HEENT: Pupils are round and equally reacting to light. EOMI. No scleral icterus. No conjunctival pallor. Normocephalic, atraumatic. No pharyngeal erythema. No thyromegaly. CARDIOVASCULAR: S1 and S2 present. No murmurs, rubs, or gallops. PULMONARY: Chest is clear to auscultation, no wheezing or crackles. ABDOMEN: Soft, nontender, nondistended, normoactive bowel sounds. No palpable organomegaly. MUSCULOSKELETAL: No joint swelling or deformity. EXTREMITIES: No cyanosis, clubbing, or pedal edema. NEUROLOGICAL: Gross neurological examination did not reveal any focal deficits. SKIN: No rashes. Assessment and plan: -Acute renal failure prerenal azotemia secondary to nausea vomiting, kidney function has normalized with IV fluids. -Right arm pain with radiculopathy patient had spinal stenosis and the foraminal narrowing. Patient is on systemic steroids at this time. Orthopedic surgery is recommending MRI -Patient is also being treated for cystitis with antibiotics that is Rocephin urine culture showing proteus miribilis -Hypertension begin on lisinopril -COPD without any acute exacerbation -History of pulmonary fibrosis -Moderate dementia probably senile -Gastroesophageal reflux disease GI prophylaxis DVT prophylaxis Full Code Plan Continue current medications and patient is scheduled to undergo MRI. She does report improvement in symptoms and will continue on IV decadron. Continue IV ceftriaxone and will transition to oral antibiotics on discharge. PT/OT are consulted pending evaluation. Cardiology recommending monitoring of heart rate for now. The impression and plan of care has been dictated by Lia Dillon, Nurse Practitioner as directed. Dr. Dolores MD I have performed a history and physical examination and medical decision making of this patient, discussed the same with the dictator, and agree with the dictators assessment and plan as written, documented as a scribe. Based on total visit time, I have performed more than 50% of this visit. Objective - Vital Signs Vital signs: Vital Signs Temp 97.4 F L 10/15/22 07:13 Pulse 45 L 10/15/22 08:09 Resp 16 10/15/22 08:09 BP 170/82 10/15/22 09:00 Pulse Ox 95 10/15/22 08:09 FiO2 Intake & Output 10/14/22 10/15/22 10/15/22 18:59 06:59 18:59 Intake Total 300 Output Total 0 Balance 300 0 Intake: Oral 300 Output: Urine 0 Other: Voiding Method Diaper Diaper Incontinent Incontinent # Voids 2 - Labs CBC & Chem 7: 10/15/22 08:44 10/15/22 08:44 Labs: Abnormal Lab Results - Last 24 Hours (Table) 10/15/22 10/15/22 Range/Units 08:44 08:44 RBC 3.32 L (3.80-5.40) m/uL Hgb 10.3 L (11.4-16.0) gm/dL Hct 31.2 L (34.0-46.0) % Sodium 134 L (137-145) mmol/L Chloride 108 H (98-107) mmol/L BUN 24 H (7-17) mg/dL Glucose 101 H (74-99) mg/dL Microbiology - Last 24 Hours (Table) 10/11/22 15:30 Blood Culture - Preliminary Blood No Growth after 72 hours 10/11/22 15:45 Blood Culture - Preliminary Blood No Growth after 72 hours Assessment and Plan Time with Patient: Less than 30
--- NOTE | 2022-10-15 16:49 | MR ---
EXAMINATION TYPE: MR cervical spine wo/w con DATE OF EXAM: 10/15/2022 COMPARISON: None HISTORY: bilateral UE weakness; neck pain. CONTRAST: Standard multiplanar, multisequence MRI departmental protocol images were obtained without contrast a nd with 6.5 mL intravenous Gadavist gadolinium contrast. There is some straightening of the cervical spine and slight kyphotic curvature. There is extensive s purring of the endplates anteriorly and posteriorly from C3 to C6 with encroachment on the spinal can al. There is moderately severe spinal stenosis from C3 to C6. There is flattening of the cervical spi nal cord and cord edema at the C3-4 level. There is mild edema also at C5-6 level. Canal measures 4 m m at C5-6 and C4-5. Canal measures 3.5 mm at C3-4. The brainstem is intact. No compression fracture. There is no cervical paraspinal mass. There is sign ificant left side C3-4 neural foraminal impingement due to uncovertebral spurring. IMPRESSION: Severe multilevel cervical spinal stenosis with cord edema and flattening of the cord.
[2022-10-15] MEDS: ATORVASTATIN 80 MG TAB PO SCH (21:51)
[2022-10-15] MEDS: MELATONIN 5 MG TABLET PO SCH (21:51)
[2022-10-16] MEDS: DEXAMETHASONE SOD PHOSPHATE 4 MG/ML 1 ML VIAL IVP SCH ×4 (01:58→21:38)
[2022-10-16] MEDS: PANTOPRAZOLE 40 MG TABLET PO SCH ×2 (06:14→08:59)
[2022-10-16] MEDS: POTASSIUM CHLORIDE ER 20 MEQ TAB.ER PO SCH (08:59)
[2022-10-16] MEDS: lisinopriL 10 MG TAB PO SCH ×2 (08:59→20:43)
[2022-10-16] MEDS: LACTOBACILLUS ACIDOPH & BULGAR 1 EACH PACKET PO SCH (08:59)
[2022-10-16] MEDS: FERROUS SULFATE 325 MG TAB PO SCH (08:59)
[2022-10-16] MEDS: ASPIRIN 81 MG PO SCH (08:59)
[2022-10-16] MEDS: NICOTINE 21MG/24HR PATCH TRANSDERM SCH (08:59)
[2022-10-16] MEDS: SODIUM BICARBONATE TAB 650 MG TAB PO SCH ×3 (08:59→20:43)
[2022-10-16] MEDS: ENOXAPARIN 40 MG/0.4 ML SYRINGE SQ SCH (09:00)
--- NOTE | 2022-10-16 09:02 | P.PN ---
Subjective Progress Note Date: 10/16/22 Principal diagnosis: Bilateral upper extremity weakness Cervical spondylosis with stenosis Patient seen and examined this morning. She is sitting up in bed and eating breakfast independently. Patient denies any cervical pain at this time. Patient states she is feeling much better today. Informed patient of her cervical MRI results. Recommendation is for surgical intervention. Patient refuses any surgery at this time. Dr. Valentin will be up to speak with patient. Benefits of procedure and risks of not performing procedure have been discussed. She denies any numbness or tingling to bilateral upper extremities. Encouraged patient to work with physical therapy today. She states she has been up and ambulatory with walker. Patient has been afebrile, denies nausea/vomiting, or chest pain. Objective - Vital Signs Vital signs: Vital Signs Temp 97.9 F 10/16/22 08:00 Pulse 51 L 10/16/22 08:00 Resp 17 10/16/22 08:00 BP 144/63 10/16/22 08:00 Pulse Ox 94 L 10/16/22 08:00 FiO2 Intake & Output 10/15/22 10/16/22 10/16/22 18:59 06:59 18:59 Intake Total 300 50 Balance 300 50 Intake: Intake, IV Titration 50 Amount cefTRIAXone 1 gm In 50 Sodium Chloride 0.9% 50 ml @ 100 mls/hr IVPB Q12H [facility] Rx#:[id number] Oral 300 Other: Voiding Method Diaper Incontinent # Voids 2 2 - Exam Physical Examination General: The patient is awake and alert, in no acute distress Skin: Skin is warm and dry with no obvious rashes or lesions. Hairy patches absent, no dorsal skin dimples, no cafe au lait spots, and no surgical inc isions. Eye: Pupils are equal, round and reactive to light, extra-ocular movements are intact; there is normal conjunctiva bilaterally. Neck: The neck is supple, there is no tenderness and ROM intact. Cardiovascular: There is a regular rate and rhythm. No murmur, rub or gallop is appreciated. Respiratory: Lungs are clear to auscultation, respirations are non-labored, breath sounds are equal. Gastrointestinal: Soft, non-distended, non-tender abdomen. Back: There is no tenderness to palpation in the midline, paralumbar, parathoracic or buttocks region. There is no obvious deformity . Musculoskeletal: FROM, Muscle strength in all major muscle groups of bilateral upper extremities 4/5, bilateral lower extremities 4/5. Neurological: CN 2-12 intact. There are no obvious motor or sensory deficits. Movement and coordination equal and intact. Sensory exam to light touch intact C 5-T1 and intact from L2-S1. Reflexes 2/4 in bilateral upper and lower extremities. Negative Hoffmans, babinski, and clonus signs. Psychiatric: Cooperative, appropriate mood & affect, normal judgment. - Labs CBC & Chem 7: 10/15/22 08:44 10/15/22 08:44 Labs: Abnormal Lab Results - Last 24 Hours (Table) 10/15/22 10/15/22 Range/Units 08:44 08:44 RBC 3.32 L (3.80-5.40) m/uL Hgb 10.3 L (11.4-16.0) gm/dL Hct 31.2 L (34.0-46.0) % Sodium 134 L (137-145) mmol/L Chloride 108 H (98-107) mmol/L BUN 24 H (7-17) mg/dL Glucose 101 H (74-99) mg/dL Microbiology - Last 24 Hours (Table) 10/11/22 15:30 Blood Culture - Preliminary Blood No Growth after 96 hours 10/11/22 15:45 Blood Culture - Preliminary Blood No Growth after 96 hours Assessment and Plan Assessment: MRI of the Cervical Spine results that there is extensive spurring of the endplates anteriorly and posteriorly from C3 to C6 with encroachment on the spinal canal. There is moderately severe spinal stenosis from C3 to C6. There is flattening of the cervical spinal cord and cord edema at the C3-4 level. There is mild edema also at C5-6 level. Canal measures 4 mm at C5-6 and C4-5. Canal measures 3.5 mm at C3-4. -Bilateral upper extremity weakness -Cervical spondylosis with stenosis Plan: -Appreciate business system consultant and team management. -Recommend C3-C6 Anterior and posterior decompression and fusion -Activity: Ambulate QID, OOB all meals, up and about. Use walker or cane if needed for stability. -Daily PT/OT, increase ambulation strength and balance. -Pain control: Adequate at this time -Meds: reviewed -DVT PPX: lovenox, aspirin -Encourage IS 10x/hr We will continue to follow *I reviewed and discussed this case with my attending Dr. Valentin, whom has reviewed this chart and films and is in agreement with assessment and plan of care as outlined above. I have personally seen and examined the patient, performed the documentation and the assessment and plan as written. Number of minutes spent on the visit: 15m.
--- NOTE | 2022-10-16 16:06 | P.PN ---
Subjective Progress Note Date: 10/16/22 Patient is admitted for acute renal failure renal azotemia secondary to nausea or vomiting patient improved with IV fluids although patient has hyperchloremia because of which patient's IV fluids will be changed to lactated Ringer's. Patient is otherwise clinically doing well. 10/14/2022 Patient is evaluated today on medical floor. Urine culture has finalized as proteus miribilits with sensitivity to IV ceftriaxone which will be continued at this time. Orthopedics is currently recommending IV decadron and monitoring for improvement in upper extremity numbness/tingling. Patient currently is denying any radiculopathy and reports overall a significant improvement in symptoms. Brain CT is showing as possible demyelination and recommending follow up MRI. Patient is scheduled to undergo cervical spine MRI for follow up and further evaluation for severe cervical canal stenosis. She is monitored off IV fluids. White count has normalized today it is 6.29. Hemoglobin stable. Kidney function has normalized. Patient remains afebrile, heart rate of 69, and blood pressure 141/60, 97% on room air. 10/15/2022 Patient is evaluated on medical floor. She is scheduled to undergo MRI of cervical spine today. Nursing had noted episodes of bradycardia with patient dropping as low as 38 overnight. She does report that she is not feeling well today. EKG performed showing sinus amanda with sinus arrhythmia, there are no specific ST or T wave changes noted. Labs are essentially unchanged today and stable with slight drop in sodium level to 136. Her kidney function has continued to improve. TSH is normal at 0.805. She is currently not on a beta guanaco. Blood pressure was elevated up in the 170s systolic today and lisinopril has been added. Cardiology consulted for further evaluation of the bradycardia. She continues on IV decadron. 10/16/2022 Patient is evaluated today sitting up in chair, no acute events overnight. MRI is done showing severe multilevel cervical spinal stenosis with cord edema and flattening of the cord. She continues to report symptom improvement and is maintained on IV decadron. No reports of numbness or tingling to upper extremities. Patient is scheduled to undergo C3-C6 anterior and posterior decompression and fusion with Dr. Valentin on Saturday10/17/2022. She is also being followed by cardiology who are recommending to monitor patients heart rate at this time. She continues on lisinopril and blood pressure is currently 144/63. Had echocardiogram done in april of 2022 showing normal LV size and systolic funtion. There is mild pulmonary hypertension and probably PFO. Remains afebrile and on room air. Review of Systems Constitutional: Denied any fatigue denied any fever. Cardio vascular: denied any chest pain, palpitations Gastrointestinal denied any nausea vomiting Pulmonary: Denied any shortness of breath cough Neurologic denied any new focal deficits All inpatient medications were reviewed and appropriate changes in these medications as dictated in the interval history and assessment and plan. PHYSICAL EXAMINATION: GENERAL: The patient is alert and oriented x3, not in any acute distress. Well developed, well nourished. HEENT: Pupils are round and equally reacting to light. EOMI. No scleral icterus. No conjunctival pallor. Normocephalic, atraumatic. No pharyngeal erythema. No thyromegaly. CARDIOVASCULAR: S1 and S2 present. No murmurs, rubs, or gallops. Bradycardic. PULMONARY: Chest is clear to auscultation, no wheezing or crackles. ABDOMEN: Soft, nontender, nondistended, normoactive bowel sounds. No palpable organomegaly. MUSCULOSKELETAL: No joint swelling or deformity. EXTREMITIES: No cyanosis, clubbing, or pedal edema. NEUROLOGICAL: Gross neurological examination did not reveal any focal deficits. Mild upper extremity weakness. SKIN: No rashes. Assessment and plan: -Acute renal failure prerenal azotemia secondary to nausea vomiting, kidney function has normalized with IV fluids. -Right arm pain with radiculopathy patient had spinal stenosis and the foraminal narrowing, confirmed on MRI. -Patient is also being treated for cystitis with antibiotics that is Rocephin urine culture showing proteus miribilis -Hypertension begin on lisinopril -COPD without any acute exacerbation -Sinus bradycardia cardiology recommending to monitor for now. -History of pulmonary fibrosis -Moderate dementia probably senile -Gastroesophageal reflux disease GI prophylaxis DVT prophylaxis Full Code Plan MRI has been done and orthopedics recommending C3-C6 anterior and posterior decompression and fusion which is scheduled for Saturday10/17/2022. She does report improvement in symptoms and will continue on IV decadron. Continue IV ceftriaxone while inpatient for proteus UTI. Cardiology following with further recommendations regarding sinus bradycardia and will be monitored for now. PT/OT on consultation. Dr. Rees will resume care of the patient tomorrow. The impression and plan of care has been dictated by Lia Dillon, Nurse Practitioner as directed. Dr. Dolores MD I have performed a history and physical examination and medical decision making of this patient, discussed the same with the dictator, and agree with the dictators assessment and plan as written, documented as a scribe. Based on total visit time, I have performed more than 50% of this visit. Objective - Vital Signs Vital signs: Vital Signs Temp 97.9 F 10/16/22 08:00 Pulse 51 L 10/16/22 08:00 Resp 17 10/16/22 08:00 BP 144/63 10/16/22 08:00 Pulse Ox 94 L 10/16/22 08:00 FiO2 Intake & Output 10/15/22 10/16/22 10/16/22 18:59 06:59 18:59 Intake Total 300 50 Balance 300 50 Intake: Intake, IV Titration 50 Amount cefTRIAXone 1 gm In 50 Sodium Chloride 0.9% 50 ml @ 100 mls/hr IVPB Q12H [facility] Rx#:[id number] Oral 300 Other: Voiding Method Diaper Incontinent # Voids 2 2 - Labs CBC & Chem 7: 10/15/22 08:44 10/15/22 08:44 Labs: Abnormal Lab Results - Last 24 Hours (Table) 10/15/22 Range/Units 08:44 Sodium 134 L (137-145) mmol/L Chloride 108 H (98-107) mmol/L BUN 24 H (7-17) mg/dL Glucose 101 H (74-99) mg/dL Microbiology - Last 24 Hours (Table) 10/11/22 15:30 Blood Culture - Preliminary Blood No Growth after 96 hours 10/11/22 15:45 Blood Culture - Preliminary Blood No Growth after 96 hours Assessment and Plan Time with Patient: Less than 30
[2022-10-16] MEDS: MELATONIN 5 MG TABLET PO SCH (20:43)
[2022-10-16] MEDS: ATORVASTATIN 80 MG TAB PO SCH (20:43)
[2022-10-17] MEDS: DEXAMETHASONE SOD PHOSPHATE 4 MG/ML 1 ML VIAL IVP SCH ×4 (01:16→20:28)
--- NOTE | 2022-10-17 08:29 | P.PN ---
Progress Note - Text Progress Note Date: 10/17/22 Pt with severe cervical stenosis and cervical myelopathy. Needs a front and back decompression fusion. We will start with C3-6 ACDF on Saturday and see how she does and decide from there if she can tolerate and/or needs the posterior right away.
[2022-10-17] MEDS: ASPIRIN 81 MG PO SCH (08:44)
[2022-10-17] MEDS: POTASSIUM CHLORIDE ER 20 MEQ TAB.ER PO SCH (08:44)
[2022-10-17] MEDS: ENOXAPARIN 40 MG/0.4 ML SYRINGE SQ SCH (08:44)
[2022-10-17] MEDS: SODIUM BICARBONATE TAB 650 MG TAB PO SCH ×3 (08:44→20:27)
[2022-10-17] MEDS: PANTOPRAZOLE 40 MG TABLET PO SCH (08:44)
[2022-10-17] MEDS: NICOTINE 21MG/24HR PATCH TRANSDERM SCH (08:44)
[2022-10-17] MEDS: LACTOBACILLUS ACIDOPH & BULGAR 1 EACH PACKET PO SCH (08:44)
[2022-10-17] MEDS: lisinopriL 10 MG TAB PO SCH (08:44)
[2022-10-17] MEDS: FERROUS SULFATE 325 MG TAB PO SCH (08:44)
[2022-10-17] MEDS ORDERED: lisinopriL 10 MG TAB PO STA (08:45)
--- NOTE | 2022-10-17 08:57 | P.PN ---
Subjective Progress Note Date: 10/17/22 Principal diagnosis: Bilateral upper extremity weakness Cervical spondylosis with stenosis Patient seen and examined this morning. Patient is currently resting in bed. Dr. Valentin spoke with her yesterday regarding surgical intervention of a 360 C3-C6 decompression and fusion and patient has agreed, she is on the schedule for this Saturday10/19/22 for C3-C6 ACDF. She denies any numbness or tingling to bilateral upper extremities. Patient expresses that she feels her strength increasing in bilateral upper extremities with the IV steroids. Encouraged patient to work with physical therapy today. She states she has been up and ambulatory with walker. Patient has been afebrile, denies nausea/vomiting, or chest pain. Objective - Vital Signs Vital signs: Vital Signs Temp 99.0 F 10/17/22 08:00 Pulse 59 L 10/17/22 08:00 Resp 17 10/17/22 08:00 BP 154/67 10/17/22 08:00 Pulse Ox 98 10/17/22 08:00 FiO2 Intake & Output 10/16/22 10/17/22 10/17/22 18:59 06:59 18:59 Intake Total 1080 340 Balance 1080 340 Intake: Oral 1080 340 Other: Voiding Method Diaper Incontinent # Voids 3 1 - Exam Physical Examination General: The patient is awake and alert, in no acute distress Skin: Skin is warm and dry with no obvious rashes or lesions. Hairy patches absent, no dorsal skin dimples, no cafe au lait spots, and no surgical incisions. Eye: Pupils are equal, round and reactive to light, extra-ocular movements are intact; there is normal conjunctiva bilaterally. Neck: The neck is supple, there is no tenderness and ROM intact. Cardiovascular: There is a regular rate and rhythm. No murmur, rub or gallop is appreciated. Respiratory: Lungs are clear to auscultation, respirations are non-labored, breath sounds are equal. Gastrointestinal: Soft, non-distended, non-tender abdomen. Back: There is no tenderness to palpation in the midline, paralumbar, parathoracic or buttocks region. There is no obvious deformity . Musculoskeletal: FROM, Muscle strength in all major muscle groups of bilateral upper extremities 4/5, bilateral lower extremities 4/5. Neurological: CN 2-12 intact. There are no obvious motor or sensory deficits. Movement and coordination equal and intact. Sensory exam to light touch intact C5-T1 and intact from L2-S1. Reflexes 2/4 in bilateral upper and lower extremities. Negative Hoffmans, babinski, and clonus signs. Psychiatric: Cooperative, appropriate mood & affect, normal judgment. - Labs CBC & Chem 7: 10/15/22 08:44 10/15/22 08:44 Labs: Microbiology - Last 24 Hours (Table) 10/11/22 15:30 Blood Culture - Preliminary Blood No Growth after 120 hours 10/11/22 15:45 Blood Culture - Preliminary Blood No Growth after 120 hours Assessment and Plan Assessment: -Cervical spondylosis -C3-C6 stenosis -Bilateral upper extremity weakness Plan: -Appreciate heritage consultant and team management. -Surgery scheduled for 10/19/22 C3-C6 Anterior and posterior decompression and fusion -Activity: Ambulate QID, OOB all meals, up and about. Use walker or cane if needed for stability. -Daily PT/OT, increase ambulation strength and balance. -Pain control: Adequate at this time -Meds: reviewed -DVT PPX: lovenox, aspirin -Encourage IS 10x/hr We will continue to follow *I reviewed and discussed this case with my attending Dr. Valentin, whom has reviewed this chart and films and is in agreement with assessment and plan of care as outlined above. I have personally seen and examined the patient, performed the documentation and the assessment and plan as written. Number of minutes spent on the visit: 15m.
--- NOTE | 2022-10-17 10:08 | P.PN ---
Subjective Progress Note Date: 10/17/22 HISTORY OF PRESENT ILLNESS: This is a 77-year-old female with a past medical history significant for hypothyroidism and hyperlipidemia. Patient does not follow with a veneer layer. We have been asked to see the patient in consultation for bradycardia. Patient examined at the bedside. Patient is admitted to the hospital secondary to right arm pain with radiculopathy, cystitis, acute kidney injury, and leukocytosis. Patient was found to be bradycardic overnight and cardiology was consulted. The patient was not on telemetry monitoring overnight. She was started on telemetry monitoring this morning which revealed sinus bradycardia. EKG completed revealing sinus bradycardia cardiac no signs of acute ischemia. The patient denies chest pain or pressure. She denies shortness of breath. She denies dizziness or lightheadedness. She denies any episodes of syncope at home. Patients blood pressure is elevated this morning with a systolic ranging between 160 and 170. * Chest xray mild cardiomegaly and COPD. Interstitial changes have increased. Correlate for CHF with pulmonary vascular congestion versus bronchitis or atypical pneumonia * Laboratory data: WBC 8.2. Hemoglobin 10.3. Platelet count 182. Sodium 134. Potassium 4.6. BUN 24. Creatinine 0.87. * Current home cardiac medications include Lipitor 80 mg at night and aspirin 81 mg daily * Most recent echocardiogram obtained in April 2022 revealed ejection fraction 60-65%, mild pulmonary hypertension, trace to mild tricuspid regurgitation 10/17/2022 Patient examined this morning at the bedside. Patient denies chest pain or pressure. Denies shortness of breath. Patient's blood pressure remains elevated with a systolic ranging between 150 and 170. PHYSICAL EXAM: VITAL SIGNS: Reviewed. GENERAL: Well-developed in no acute distress. HEENT: Head is normocephalic. Pupils are equal, round. Sclerae anicteric. Mucous membranes of the mouth are moist. Neck supple. No JVD or thyromegaly LUNGS: Respirations even and unlabored. Lungs essentially clear to auscultation bilaterally. HEART: Regular rate and rhythm. S1 and S2 heard. ABDOMEN: Soft. Nondistended. Nontender. EXTREMITIES: Normal range of motion. No clubbing or cyanosis. Peripheral pulses intact. No lower extremity edema NEUROLOGIC: Awake and alert. Oriented x 3. ASSESSMENT: Right arm pain with radiculopathy Leukocytosis Cystitis, on antibiotics Acute kidney injury, resolved Asymptomatic sinus bradycardia Hypertension Hyperlipidemia PLAN: Increase lisinopril to 20mg BID Continue to monitor blood pressure Continue to monitor patient as she is asymptomatic in regards to her sinus bradycardia Further recommendations pending patient's course Nurse practitioner note has been reviewed by physician. Signing provider agrees with the documented findings, assessment, and plan of care. Objective - Vital Signs Vital signs: Vital Signs Temp 99.0 F 10/17/22 08:00 Pulse 59 L 10/17/22 08:00 Resp 17 10/17/22 08:00 BP 154/67 10/17/22 08:00 Pulse Ox 98 10/17/22 08:00 FiO2 Intake & Output 10/16/22 10/17/22 10/17/22 18:59 06:59 18:59 Intake Total 1080 340 Balance 1080 340 Intake: Oral 1080 340 Other: Voiding Method Diaper Incontinent # Voids 3 1 - Labs CBC & Chem 7: 10/15/22 08:44 10/15/22 08:44 Labs: Microbiology - Last 24 Hours (Table) 10/11/22 15:30 Blood Culture - Preliminary Blood No Growth after 120 hours 10/11/22 15:45 Blood Culture - Preliminary Blood No Growth after 120 hours
--- NOTE | 2022-10-17 18:36 | P.PN ---
Progress Note - Text Progress Note Date: 10/17/22 Chief Complaint: Feeling weak This is a pleasant 77-year-old patient, follows with Dr. Riley. Chronic stable medical conditions include COPD, hypertension, , pulmonary fibrosis, hypothyroid, cognitive impairment. has a legal guardian Kina Rust. Patient lives alone and takes care of herself. In physical therapy arrived today they found the patient was weak and not able to get out of bed. Patient is started vomiting. According to the daughter to the EMS personnel patient has not been eating much for last 2 days. Weak tired rundown. Because of cognitive impairment patient not a very good historian. Had a fever of 100.4 in the ER. Urine came back infected appearing Admitted with acute UTI with cystitis, acute kidney injury from dehydration, acute medical asthenia. 10/12/2022: Sitting up in a recliner. Feeling better. Complaining of right arm weakness and neck pain from this morning. Not able to move her neck well. Was having trouble having breakfast. Concern about radiculopathy. No change in speech or lower extremity weakness. Computed tomography scan of the cervical spine x-ray also consult done. IV Solu-Medrol started. Patient is admitted for acute renal failure renal azotemia secondary to nausea or vomiting patient improved with IV fluids although patient has hyperchloremia because of which patient's IV fluids will be changed to lactated Ringer's. Patient is otherwise clinically doing well. 10/14/2022 Patient is evaluated today on medical floor. Urine culture has finalized as proteus miribilits with sensitivity to IV ceftriaxone which will be continued at this time. Orthopedics is currently recommending IV decadron and monitoring for improvement in upper extremity numbness/tingling. Patient currently is denying any radiculopathy and reports overall a significant improvement in symptoms. Brain CT is showing as possible demyelination and recommending follow up MRI. Patient is scheduled to undergo cervical spine MRI for follow up and further evaluation for severe cervical canal stenosis. She is monitored off IV fluids. White count has normalized today it is 6.29. Hemoglobin stable. Kidney function has normalized. Patient remains afebrile, heart rate of 69, and blood pressure 141/60, 97% on room air. 10/15/2022 Patient is evaluated on medical floor. She is scheduled to undergo MRI of cervical spine today. Nursing had noted episodes of bradycardia with patient dropping as low as 38 overnight. She does report that she is not feeling well today. EKG performed showing sinus amanda with sinus arrhythmia, there are no specific ST or T wave changes noted. Labs are essentially unchanged today and stable with slight drop in sodium level to 136. Her kidney function has continued to improve. TSH is normal at 0.805. She is currently not on a beta guanaco. Blood pressure was elevated up in the 170s systolic today and lisinopril has been added. Cardiology consulted for further evaluation of the bradycardia. She continues on IV decadron. 10/16/2022 Patient is evaluated today sitting up in chair, no acute events overnight. MRI is done showing severe multilevel cervical spinal stenosis with cord edema and flattening of the cord. She continues to report symptom improvement and is maintained on IV decadron. No reports of numbness or tingling to upper extremities. Patient is scheduled to undergo C3-C6 anterior and posterior decompression and fusion with Dr. Valentin on Saturday10/17/2022. She is also being followed by cardiology who are recommending to monitor patients heart rate at this time. She continues on lisinopril and blood pressure is currently 144/63. Had echocardiogram done in april of 2022 showing normal LV size and systolic funtion. There is mild pulmonary hypertension and probably PFO. Remains afebrile and on room air. 10/17/2022: I resumed care of the patient today from [facility] hospitalist. Patient sitting up in a chair. Oral intake fair. Some weakness in the arms. Surgery scheduled by Dr. Valentin this coming Saturday. Active Medications Acetaminophen (Acetaminophen Tab 325 Mg Tab) 650 mg PO Q6HR PRN PRN Reason: Mild Pain or Fever > 100.5 Last Admin: 10/14/22 21:05 Dose: 650 mg Aspirin (Aspirin 81 Mg) 81 mg PO DAILY [facility] Last Admin: 10/17/22 08:44 Dose: 81 mg Atorvastatin Calcium (Atorvastatin 80 Mg Tab) 80 mg PO HS [facility] Last Admin: 10/16/22 20:43 Dose: 80 mg Calcium Carbonate/Glycine (Calcium Carbonate 500 Mg Chewable) 1,000 mg PO Q4HR PRN PRN Reason: Dyspepsia Dexamethasone Sodium Phosphate (Dexamethasone Sod Phosphate 4 Mg/Ml 1 Ml Vial) 4 mg IVP Q6H [facility] Last Admin: 10/17/22 14:16 Dose: 4 mg Enoxaparin Sodium (Enoxaparin 40 Mg/0.4 Ml Syringe) 40 mg SQ DAILY [facility] Last Admin: 10/17/22 08:44 Dose: 40 mg Ferrous Sulfate (Ferrous Sulfate 325 Mg Tab) 325 mg PO DAILY [facility] Last Admin: 10/17/22 08:44 Dose: 325 mg Ceftriaxone Sodium 1 gm/ (Sodium Chloride) 50 mls @ 100 mls/hr IVPB Q12H [facility]; Protocol Last Admin: 10/17/22 16:24 Dose: 100 mls/hr Lactobacillus Acidoph/Bulgaricus (Lactobacillus Acidoph & Bulgar 1 Each Packet) 1 each PO DAILY [facility] Last Admin: 10/17/22 08:44 Dose: 1 each Lactulose (Lactulose 20 Gm/30 Ml Cup) 20 gm PO DAILY PRN PRN Reason: Constipation Lisinopril (Lisinopril 20 Mg Tab) 20 mg PO BID [facility] Loperamide HCl (Loperamide 2 Mg Cap) 2 mg PO QID PRN PRN Reason: Diarrhea Last Admin: 10/12/22 09:01 Dose: 2 mg Melatonin (Melatonin 5 Mg Tablet) 10 mg PO [facility] Last Admin: 10/16/22 20:43 Dose: 10 mg Naloxone HCl (Naloxone 0.4 Mg/Ml 1 Ml Vial) 0.2 mg IV Q2M PRN PRN Reason: Opioid Reversal Nicotine (Nicotine 21mg/24hr Patch) 1 patch TRANSDERM DAILY [facility] Last Admin: 10/17/22 08:44 Dose: 1 patch Ondansetron HCl (Ondansetron 4 Mg/2 Ml Vial) 4 mg IVP Q8HR PRN PRN Reason: Nausea And Vomiting Pantoprazole Sodium (Pantoprazole 40 Mg Tablet) 40 mg PO AC-BRKFST [facility] Last Admin: 10/17/22 08:44 Dose: 40 mg Phenazopyridine HCl (Phenazopyridine 100 Mg Tab) 100 mg PO TID PRN PRN Reason: See Comments Potassium Chloride (Potassium Chloride Er 20 Meq Tab.Er) 20 meq PO DAILY [facility] Last Admin: 10/17/22 08:44 Dose: 20 meq Sodium Bicarbonate (Sodium Bicarbonate Tab 650 Mg Tab) 650 mg PO TID [facility] Last Admin: 10/17/22 16:24 Dose: 650 mg Trazodone HCl (Trazodone Hcl 50 Mg Tab) 50 mg PO HS PRN PRN Reason: Insomnia Last Admin: 10/13/22 23:50 Dose: 50 mg Past medical history to include: COPD, hypertension, , pulmonary fibrosis, incontinence, cognitive impairment Social history: Lives alone. Smokes cigarettes. Has a legal guardian Layla Rust. Family supplies her with frozen meals. No alcohol. Has been smoking since a teenager. Physical examination: VITAL SIGNS: 99, 59, 17, 154/67, 98% room air GENERAL: In a recliner. Muscle muscle mass and loss of subcutaneous tissue fat EYES: Pupils equal. Conjunctiva normal. HEENT: External appearance of nose and ears normal, oral cavity grossly normal. NECK: JVD not raised; masses not palpable. HEART: First and second heart sounds are normal; no edema. LUNGS: Respiratory rate normal; increased breath sounds. ABDOMEN: Soft, nontender, liver spleen not palpable, no masses palpable. PSYCH: Able to answer simple questions. Mild anxiety. l. MUSCULOSKELETAL:No Clubbing/cyanosis;muscles-grossly intact. Evidence of OA. . Decreased muscle mass. NEUROLOGICAL: Weakness in both upper extremities. INVESTIGATIONS, reviewed in the clinical context: 10/15/2022: White count 8.2 hemoglobin 10.3 potassium 4.6 creatinine 0.87 10/12/2022: Bicarbonate 17 BUN 29 creatinine 1.80 Computed tomography scan cervical spine: Serum portable is multilevel DJD, including C3-C4/C4-C5/C5-C6. Variable neuroforamen stenosis. Cervical spine x-ray: Multilevel DJD changes. White count 22.7 hemoglobin 11.4 platelets 218 potassium 4.9 BUN 23 creatinine 1.95 UA positive for leukoesterase, negative for nitrite, WBC 182 Influenza type A/diabetes/RSV/COVID-19: Not detected Chest x-ray film personally reviewed by me-possible chronic fibrotic changes Assessment and plan: -Acute kidney injury, predominantly prerenal from vomiting.: Corrected IV fluids. Patient creatinine was 0.96 on 09/04/2022 -New onset of right arm radiculopathy weakness with acute neck pain. X-ray computed tomography scan showing multiple level spinal stenosis and foraminotomy narrowing.: C3-C6 stenosis. With bilateral upper extremity paresis IV Decadron 4 mg every 6 -surgery scheduled this Saturday with Dr. Valentin -Multiple level DJD cervical spine with spinal stenosis -Acute UTI with cystitis IV ceftriaxone -Acute medical asthenia from renal failure Increase activity as tolerated. PTOT -Mild protein calorie micturition from decreased oral intake Ensure new -COPD in a current smoker Albuterol when necessary. -Chronic nicotine dependence, cigarette smoker Nicotine patch -Primary osteoarthritis Tylenol when necessary -Pulmonary fibrosis, chronic -Cognitive impairment. -Left ovarian cyst 2.8 cm -GERD Prilosec -Legal guardian, Kina Rust
--- NOTE | 2022-10-17 19:52 | P.PN ---
Progress Note - Text Progress Note Date: 10/17/22 Spoke with family over the phone about surgery and what their wishes were. They were very nice and understood why we would like to try and help pt with surgery. They understand the risks and benefits and potential outcomes now and would like to discuss further. We will continue to plan on Saturday for surgery and discuss with them morning of.
[2022-10-17] MEDS: MELATONIN 5 MG TABLET PO SCH (20:27)
[2022-10-17] MEDS: lisinopriL 20 MG TAB PO SCH (20:27)
[2022-10-17] MEDS: ATORVASTATIN 80 MG TAB PO SCH (20:28)
[2022-10-18] MEDS: DEXAMETHASONE SOD PHOSPHATE 4 MG/ML 1 ML VIAL IVP SCH ×4 (03:33→17:11)
[2022-10-18] MEDS: ENOXAPARIN 40 MG/0.4 ML SYRINGE SQ SCH (07:59)
[2022-10-18] MEDS: ASPIRIN 81 MG PO SCH (08:01)
[2022-10-18] MEDS: FERROUS SULFATE 325 MG TAB PO SCH (08:10)
[2022-10-18] MEDS: LACTOBACILLUS ACIDOPH & BULGAR 1 EACH PACKET PO SCH (08:10)
[2022-10-18] MEDS: NICOTINE 21MG/24HR PATCH TRANSDERM SCH (08:10)
[2022-10-18] MEDS: POTASSIUM CHLORIDE ER 20 MEQ TAB.ER PO SCH (08:10)
[2022-10-18] MEDS: lisinopriL 20 MG TAB PO SCH ×2 (08:10→20:19)
[2022-10-18] MEDS: SODIUM BICARBONATE TAB 650 MG TAB PO SCH ×3 (08:10→20:19)
--- NOTE | 2022-10-18 08:53 | P.PN ---
Subjective Progress Note Date: 10/18/22 Principal diagnosis: Bilateral upper extremity weakness Cervical spondylosis with stenosis Patient seen and examined this morning. Patient is sitting up in chair. She denies any numbness or tingling to bilateral upper extremities. She states she does have some weakness into right extremity, but this has improved with IV steroids.She states she has been up and ambulatory with walker, tolerating well. Patient states along with her family, they are still agreeable to proceed with surgical procedure for tomorrow morning 10/19/22. Patient has been afebrile, denies nausea/vomiting, or chest pain. Objective - Vital Signs Vital signs: Vital Signs Temp 98.5 F 10/18/22 01:50 Pulse 52 L 10/17/22 19:32 Resp 20 10/18/22 01:50 BP 147/57 10/18/22 01:50 Pulse Ox 95 10/18/22 01:50 FiO2 Intake & Output 10/17/22 10/18/22 10/18/22 18:59 06:59 18:59 Intake Total 50 Balance 50 Intake: Intake, IV Titration 50 Amount cefTRIAXone 1 gm In 50 Sodium Chloride 0.9% 50 ml @ 100 mls/hr IVPB Q12H [facility] Rx#:[id number] Other: # Voids 2 # Bowel Movements 1 - Exam Physical Examination General: The patient is awake and alert, in no acute distress. Skin: Skin is warm and dry with no obvious rashes or lesions. Hairy patches absent, no dorsal skin dimples, no cafe au lait spots, and no surgical incisions. Eye: Pupils are equal, round and reactive to light, extra-ocular movements are intact; there is normal conjunctiva bilaterally. Neck: The neck is supple, there is no tenderness and ROM intact. Cardiovascular: There is a regular rate and rhythm. No murmur, rub or gallop is appreciated. Respiratory: Lungs are clear to auscultation, respirations are non-labored, breath sounds are equal. Gastrointestinal: Soft, non-distended, non-tender abdomen. Back: There is no tenderness to palpation in the midline, paralumbar, p arathoracic or buttocks region. There is no obvious deformity. . Musculoskeletal: FROM, Muscle strength in all major muscle groups of bilateral upper extremities 4/5, bilateral lower extremities 4/5. Neurological: CN 2-12 intact. There are no obvious motor or sensory deficits. Movement and coordination equal and intact. Sensory exam to light touch intact C5-T1 and intact from L2-S1. Reflexes 2/4 in bilateral upper and lower extremities. Negative Hoffmans, babinski, and clonus signs. Psychiatric: Cooperative, appropriate mood & affect, normal judgment. - Labs CBC & Chem 7: 10/15/22 08:44 10/15/22 08:44 Labs: Microbiology - Last 24 Hours (Table) 10/11/22 15:30 Blood Culture - Final Blood No Growth after 144 hours 10/11/22 15:45 Blood Culture - Final Blood No Growth after 144 hours Assessment and Plan Assessment: -Cervical spondylosis -C3-C6 stenosis -Bilateral upper extremity weakness Plan: -Appreciate data center consultant and team management. -Surgery scheduled for tomorrow 10/19/22 C3-C6 Anterior and posterior decompression and fusion - NPO at NC - Hold Lovenox and aspirin -Activity: Ambulate QID, OOB all meals, up and about. Use walker or cane if needed for stability. -Daily PT/OT, increase ambulation strength and balance. -Pain control: Adequate at this time -Meds: reviewed -DVT PPX: mechanical -Encourage IS 10x/hr We will continue to follow *I reviewed and discussed this case with my attending Dr. Valentin, whom has reviewed this chart and films and is in agreement with assessment and plan of care as outlined above. I have personally seen and examined the patient, performed the documentation and the assessment and plan as written. Number of minutes spent on the visit: 15m.
--- NOTE | 2022-10-18 09:16 | P.PN ---
Subjective Progress Note Date: 10/18/22 HISTORY OF PRESENT ILLNESS: This is a 77-year-old female with a past medical history significant for hypothyroidism and hyperlipidemia. 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 We have been asked to see the patient in consultation for bradycardia. Patient examined at the bedside. Patient is admitted to the hospital secondary to right arm pain with radiculopathy, cystitis, acute kidney injury, and leukocytosis. Patient was found to be bradycardic overnight and cardiology was consulted. The patient was not on telemetry monitoring overnight. She was started on telemetry monitoring this morning which revealed sinus bradycardia. EKG completed revealing sinus bradycardia cardiac no signs of acute ischemia. The patient denies chest pain or pressure. She denies shortness of breath. She denies dizziness or lightheadedness. She denies any episodes of syncope at home. Patients blood pressure is elevated this morning with a systolic ranging between 160 and 170. * Chest xray mild cardiomegaly and COPD. Interstitial changes have increased. Correlate for CHF with pulmonary vascular congestion versus bronchitis or atypical pneumonia * Laboratory data: WBC 8.2. Hemoglobin 10.3. Platelet count 182. Sodium 134. Potassium 4.6. BUN 24. Creatinine 0.87. * Current home cardiac medications include Lipitor 80 mg at night and aspirin 81 mg daily * Most recent echocardiogram obtained in April 2022 revealed ejection fraction 60-65%, mild pulmonary hypertension, trace to mild tricuspid regurgitation 10/17/2022 Patient examined this morning at the bedside. Patient denies chest pain or pressure. Denies shortness of breath. Patient's blood pressure remains elevated with a systolic ranging between 150 and 170. 10/18/2022 Patient examined this morning at the bedside. Patient denies chest pain or pressure. Denies shortness of breath. She is scheduled for surgical intervention tomorrow with Dr. Valentin. Systolic blood pressure ranging between [id number]. Her lisinopril was increased yesterday 20 mg twice a day. PHYSICAL EXAM: VITAL SIGNS: Reviewed. GENERAL: Well-developed in no acute distress. HEENT: Head is normocephalic. Pupils are equal, round. Sclerae anicteric. Mucous membranes of the mouth are moist. Neck supple. No JVD or thyromegaly LUNGS: Respirations even and unlabored. Lungs essentially clear to auscultation bilaterally. HEART: Regular rate and rhythm. S1 and S2 heard. ABDOMEN: Soft. Nondistended. Nontender. EXTREMITIES: Normal range of motion. No clubbing or cyanosis. Peripheral pulses intact. No lower extremity edema NEUROLOGIC: Awake and alert. Oriented x 3. ASSESSMENT: Right arm pain with radiculopathy Leukocytosis Cystitis, on antibiotics Acute kidney injury, resolved Asymptomatic sinus bradycardia Hypertension Hyperlipidemia PLAN: Continue current dose of lisinopril at this time Continue to monitor blood pressure Continue to monitor patient as she is asymptomatic in regards to her sinus bradycardia Further recommendations pending patient's course Nurse practitioner note has been reviewed by physician. Signing provider agrees with the documented findings, assessment, and plan of care. Objective - Vital Signs Vital signs: Vital Signs Temp 98.4 F 10/18/22 07:34 Pulse 51 L 10/18/22 07:34 Resp 18 10/18/22 07:34 BP 177/82 10/18/22 07:34 Pulse Ox 98 10/18/22 07:34 FiO2 Intake & Output 10/17/22 10/18/22 10/18/22 18:59 06:59 18:59 Intake Total 50 Balance 50 Intake: Intake, IV Titration 50 Amount cefTRIAXone 1 gm In 50 Sodium Chloride 0.9% 50 ml @ 100 mls/hr IVPB Q12H [facility] Rx#:[id number] Other: # Voids 2 # Bowel Movements 1 - Labs CBC & Chem 7: 10/15/22 08:44 10/15/22 08:44 Labs: Microbiology - Last 24 Hours (Table) 10/11/22 15:30 Blood Culture - Final Blood No Growth after 144 hours 10/11/22 15:45 Blood Culture - Final Blood No Growth after 144 hours
[2022-10-18 13:58] VITALS: BMI 23.3
--- NOTE | 2022-10-18 16:31 | P.PN ---
Progress Note - Text Progress Note Date: 10/18/22 Chief Complaint: Feeling weak This is a pleasant 77-year-old patient, follows with Dr. Riley. Chronic stable medical conditions include COPD, hypertension, , pulmonary fibrosis, hypothyroid, cognitive impairment. has a legal guardian Kina Rust. Patient lives alone and takes care of herself. In physical therapy arrived today they found the patient was weak and not able to get out of bed. Patient is started vomiting. According to the daughter to the EMS personnel patient has not been eating much for last 2 days. Weak tired rundown. Because of cognitive impairment patient not a very good historian. Had a fever of 100.4 in the ER. Urine came back infected appearing Admitted with acute UTI with cystitis, acute kidney injury from dehydration, acute medical asthenia. 10/12/2022: Sitting up in a recliner. Feeling better. Complaining of right arm weakness and neck pain from this morning. Not able to move her neck well. Was having trouble having breakfast. Concern about radiculopathy. No change in speech or lower extremity weakness. Computed tomography scan of the cervical spine x-ray also consult done. IV Solu-Medrol started. Patient is admitted for acute renal failure renal azotemia secondary to nausea or vomiting patient improved with IV fluids although patient has hyperchloremia because of which patient's IV fluids will be changed to lactated Ringer's. Patient is otherwise clinically doing well. 10/14/2022 Patient is evaluated today on medical floor. Urine culture has finalized as proteus miribilits with sensitivity to IV ceftriaxone which will be continued at this time. Orthopedics is currently recommending IV decadron and monitoring for improvement in upper extremity numbness/tingling. Patient currently is denying any radiculopathy and reports overall a significant improvement in symptoms. Brain CT is showing as possible demyelination and recommending follow up MRI. Patient is scheduled to undergo cervical spine MRI for follow up and further evaluation for severe cervical canal stenosis. She is monitored off IV fluids. White count has normalized today it is 6.29. Hemoglobin stable. Kidney function has normalized. Patient remains afebrile, heart rate of 69, and blood pressure 141/60, 97% on room air. 10/15/2022 Patient is evaluated on medical floor. She is scheduled to undergo MRI of cervical spine today. Nursing had noted episodes of bradycardia with patient dropping as low as 38 overnight. She does report that she is not feeling well today. EKG performed showing sinus amanda with sinus arrhythmia, there are no specific ST or T wave changes noted. Labs are essentially unchanged today and stable with slight drop in sodium level to 136. Her kidney function has continued to improve. TSH is normal at 0.805. She is currently not on a beta guanaco. Blood pressure was elevated up in the 170s systolic today and lisinopril has been added. Cardiology consulted for further evaluation of the bradycardia. She continues on IV decadron. 10/16/2022 Patient is evaluated today sitting up in chair, no acute events overnight. MRI is done showing severe multilevel cervical spinal stenosis with cord edema and flattening of the cord. She continues to report symptom improvement and is maintained on IV decadron. No reports of numbness or tingling to upper extremities. Patient is scheduled to undergo C3-C6 anterior and posterior decompression and fusion with Dr. Valentin on Saturday10/17/2022. She is also being followed by cardiology who are recommending to monitor patients heart rate at this time. She continues on lisinopril and blood pressure is currently 144/63. Had echocardiogram done in april of 2022 showing normal LV size and systolic funtion. There is mild pulmonary hypertension and probably PFO. Remains afebrile and on room air. 10/17/2022: I resumed care of the patient today from [facility] hospitalist. Patient sitting up in a chair. Oral intake fair. Some weakness in the arms. Surgery scheduled by Dr. Valentin this coming Saturday. 10/18/2022: Up in a chair. Eating her lunch. Pending surgery tomorrow. No new issues. IV Decadron. Blood pressure running on the higher side. Lisinopril added last night. We'll add chlorthalidone. Active Medications Acetaminophen (Acetaminophen Tab 325 Mg Tab) 650 mg PO Q6HR PRN PRN Reason: Mild Pain or Fever > 100.5 Last Admin: 10/14/22 21:05 Dose: 650 mg Aspirin (Aspirin 81 Mg) 81 mg PO DAILY [facility] Last Admin: 10/18/22 08:01 Dose: Not Given Atorvastatin Calcium (Atorvastatin 80 Mg Tab) 80 mg PO HS [facility] Last Admin: 10/17/22 20:28 Dose: 80 mg Calcium Carbonate/Glycine (Calcium Carbonate 500 Mg Chewable) 1,000 mg PO Q4HR PRN PRN Reason: Dyspepsia Dexamethasone Sodium Phosphate (Dexamethasone Sod Phosphate 4 Mg/Ml 1 Ml Vial) 4 mg IVP Q6H [facility] Last Admin: 10/18/22 13:34 Dose: 4 mg Enoxaparin Sodium (Enoxaparin 40 Mg/0.4 Ml Syringe) 40 mg SQ DAILY [facility] Last Admin: 10/18/22 07:59 Dose: Not Given Ferrous Sulfate (Ferrous Sulfate 325 Mg Tab) 325 mg PO DAILY [facility] Last Admin: 10/18/22 08:10 Dose: 325 mg Ceftriaxone Sodium 1 gm/ (Sodium Chloride) 50 mls @ 100 mls/hr IVPB Q12H [facility]; Protocol Last Admin: 10/18/22 15:41 Dose: 100 mls/hr Lactobacillus Acidoph/Bulgaricus (Lactobacillus Acidoph & Bulgar 1 Each Packet) 1 each PO DAILY [facility] Last Admin: 10/18/22 08:10 Dose: 1 each Lactulose (Lactulose 20 Gm/30 Ml Cup) 20 gm PO DAILY PRN PRN Reason: Constipation Lisinopril (Lisinopril 20 Mg Tab) 20 mg PO BID [facility] Last Admin: 10/18/22 08:10 Dose: 20 mg Loperamide HCl (Loperamide 2 Mg Cap) 2 mg PO QID PRN PRN Reason: Diarrhea Last Admin: 10/12/22 09:01 Dose: 2 mg Melatonin (Melatonin 5 Mg Tablet) 10 mg PO HS [facility] Last Admin: 10/17/22 20:27 Dose: 10 mg Naloxone HCl (Naloxone 0.4 Mg/Ml 1 Ml Vial) 0.2 mg IV Q2M PRN PRN Reason: Opioid Reversal Nicotine (Nicotine 21mg/24hr Patch) 1 patch TRANSDERM DAILY [facility] Last Admin: 10/18/22 08:10 Dose: 1 patch Ondansetron HCl (Ondansetron 4 Mg/2 Ml Vial) 4 mg IVP Q8HR PRN PRN Reason: Nausea And Vomiting Pantoprazole Sodium (Pantoprazole 40 Mg Tablet) 40 mg PO AC-BRKFST [facility] Last Admin: 10/17/22 08:44 Dose: 40 mg Phenazopyridine HCl (Phenazopyridine 100 Mg Tab) 100 mg PO TID PRN PRN Reason: See Comments Potassium Chloride (Potassium Chloride Er 20 Meq Tab.Er) 20 meq PO DAILY [facility] Last Admin: 10/18/22 08:10 Dose: 20 meq Sodium Bicarbonate (Sodium Bicarbonate Tab 650 Mg Tab) 650 mg PO TID [facility] Last Admin: 10/18/22 15:42 Dose: 650 mg Trazodone HCl (Trazodone Hcl 50 Mg Tab) 50 mg PO HS PRN PRN Reason: Insomnia Last Admin: 10/13/22 23:50 Dose: 50 mg Past medical history to include: COPD, hypertension, , pulmonary fibrosis, incontinence, cognitive impairment Social history: Lives alone. Smokes cigarettes. Has a legal guardian Layla Rust. Family supplies her with frozen meals. No alcohol. Has been smoking since a teenager. Physical examination: VITAL SIGNS: 98.4, 51, 18, 1 77 x 82, 98% room air GENERAL: Up in a chair, eating. Muscle muscle mass and loss of subcutaneous tissue fat EYES: Pupils equal. Conjunctiva normal. HEENT: External appearance of nose and ears normal, oral cavity grossly normal. NECK: JVD not raised; masses not palpable. HEART: First and second heart sounds are normal; no edema. LUNGS: Respiratory rate normal; increased breath sounds. ABDOMEN: Soft, nontender, liver spleen not palpable, no masses palpable. PSYCH: Able to answer simple questions. MUSCULOSKELETAL:No Clubbing/cyanosis;muscles-grossly intact. Evidence of OA. . Decreased muscle mass. NEUROLOGICAL: Weakness in both upper extremities. INVESTIGATIONS, reviewed in the clinical context: 10/15/2022: White count 8.2 hemoglobin 10.3 potassium 4.6 creatinine 0.87 10/12/2022: Bicarbonate 17 BUN 29 creatinine 1.80 Computed tomography scan cervical spine: Serum portable is multilevel DJD, including C3-C4/C4-C5/C5-C6. Variable neuroforamen stenosis. Cervical spine x-ray: Multilevel DJD changes. White count 22.7 hemoglobin 11.4 platelets 218 potassium 4.9 BUN 23 creatinine 1.95 UA positive for leukoesterase, negative for nitrite, WBC 182 Influenza type A/diabetes/RSV/COVID-19: Not detected Chest x-ray film personally reviewed by me-possible chronic fibrotic changes Assessment and plan: -Acute kidney injury, predominantly prerenal from vomiting.: Corrected IV fluids. Patient creatinine was 0.96 on 09/04/2022 -New onset of right arm radiculopathy weakness with acute neck pain. X-ray computed tomography scan showing multiple level spinal stenosis and foraminotomy narrowing.: C3-C6 stenosis. With bilateral upper extremity paresis IV Decadron 4 mg every 6 -surgery scheduled this Saturday with Dr. Valentin -Multiple level DJD cervical spine with spinal stenosis -Acute UTI with cystitis IV ceftriaxone -Essential hypertension Lisinopril 20 mg twice a day. Add chlorthalidone 25 mg a day. -Acute medical asthenia from renal failure Increase activity as tolerated. PTOT -Mild protein calorie micturition from decreased oral intake Ensure new -COPD in a current smoker Albuterol when necessary. -Chronic nicotine dependence, cigarette smoker Nicotine patch -Primary osteoarthritis Tylenol when necessary -Pulmonary fibrosis, chronic -Cognitive impairment. -Left ovarian cyst 2.8 cm -GERD [employer] -Legal guardian, Kina Barrera Lisinopril for blood pressure last night. Chlorthalidone being added today. Repeat labs in the morning. Discussed with patient. Due for surgery tomorrow.
[2022-10-18] MEDS: CHLORTHALIDONE 25 MG TAB PO SCH (17:20)
[2022-10-18] MEDS: ATORVASTATIN 80 MG TAB PO SCH (20:19)
[2022-10-18] MEDS: MELATONIN 5 MG TABLET PO SCH (20:20)
[2022-10-19] MEDS: DEXAMETHASONE SOD PHOSPHATE 4 MG/ML 1 ML VIAL IVP SCH ×3 (00:12→16:53)
[2022-10-19] MEDS: ASPIRIN 81 MG PO SCH ×2 (01:40→10:10)
[2022-10-19] MEDS: ENOXAPARIN 40 MG/0.4 ML SYRINGE SQ SCH ×3 (01:40→10:11)
[2022-10-19 04:13] LABS: Basophils % (A) 0 %; Eosinophils % (A) 0 %; HCT 34.1 % (34.0-46.0); HGB 11.3 gm/dL (11.4-16.0); Lymphocytes # (A) 1.3 k/uL (1.0-4.8); Lymphocytes % (A) 10 %; MCH 30.9 pg (25.0-35.0); MCHC 33.2 g/dL (31.0-37.0); MCV 93.1 fL (80.0-100.0); Mean Platelet Volume 8.8; Monocytes # (A) 0.4 k/uL (0-1.0); Monocytes % (A) 4 %; Neutrophils # (A) 10.6 k/uL (1.3-7.7); Neutrophils % (A) 85 %; Platelet Count 260 k/uL (150-450); RBC 3.66 m/uL (3.80-5.40); WBC 12.5 k/uL (3.8-10.6)
[2022-10-19 04:25] LABS: African American GFR (CKD) 81 (>60 ml/min/1.73 sqM); Anion Gap 6 mmol/L; Blood Urea Nitrogen 27 mg/dL (7-17); Calcium 8.5 mg/dL (8.4-10.2); Carbon Dioxide 25 mmol/L (22-30); Chloride 101 mmol/L (98-107); Glucose 112 mg/dL (74-99); Non-African American GFR(CKD) 70 (>60 ml/min/1.73 sqM); Potassium 4.4 mmol/L (3.5-5.1); Sodium 132 mmol/L (137-145)
[2022-10-19] MEDS: PANTOPRAZOLE 40 MG TABLET PO SCH (06:15)
--- NOTE | 2022-10-19 08:25 | P.PN ---
Subjective Progress Note Date: 10/19/22 Principal diagnosis: Bilateral upper extremity weakness Cervical spondylosis with stenosis Patient seen and examined this morning. Patient is resting comfortably in bed. She has been NPO since midnight for her procedure today. Patient has been afebrile, no complaints of nausea/vomiting, or chest pain. Objective - Vital Signs Vital signs: Vital Signs Temp 97.8 F 10/19/22 02:00 Pulse 47 L 10/19/22 02:00 Resp 17 10/19/22 02:00 BP 188/61 10/19/22 02:00 Pulse Ox 93 L 10/19/22 02:00 FiO2 Intake & Output 10/18/22 10/19/22 10/19/22 18:59 06:59 18:59 Weight 63.503 kg Other: Voiding Method Toilet Diaper Diaper Incontinent # Voids 1 5 # Bowel Movements 1 - Exam Physical Examination General: The patient is awake and alert, in no acute distress. Skin: Skin is warm and dry with no obvious rashes or lesions. Hairy patches absent, no dorsal skin dimples, no cafe au lait spots, and no surgical incisions. Eye: Pupils are equal, round and reactive to light, extra-ocular movements are intact; there is normal conjunctiva bilaterally. Neck: The neck is supple, there is no tenderness and ROM intact. Cardiovascular: There is a regular rate and rhythm. No murmur, rub or gallop is appreciated. Respiratory: Lungs are clear to auscultation, respirations are non-labored, breath sounds are equal. Gastrointestinal: Soft, non-distended, non-tender abdomen. Back: There is no tenderness to palpation in the midline, paralumbar, parathoracic or buttocks region. There is no obvious deformity. . Musculoskeletal: FROM, Muscle strength in all major muscle groups of bilateral upper extremities 4/5, bilateral lower extremities 4/5. Neurological: CN 2-12 intact. There are no obvious motor or sensory deficits. Movement and coordination equal and intact. Sensory exam to light touch intact C5-T1 and intact from L2-S1. Reflexes 2/4 in bilateral upper and lower extremities. Negative Hoffmans, babinski, and clonus signs. Psychiatric: Cooperative, appropriate mood & affect, normal judgment. - Labs CBC & Chem 7: 10/19/22 03:51 10/19/22 03:51 Labs: Abnormal Lab Results - Last 24 Hours (Table) 10/19/22 10/19/22 Range/Units 03:51 03:51 WBC 12.5 H (3.8-10.6) k/uL RBC 3.66 L (3.80-5.40) m/uL Hgb 11.3 L (11.4-16.0) gm/dL Neutrophils # 10.6 H (1.3-7.7) k/uL Sodium 132 L (137-145) mmol/L BUN 27 H (7-17) mg/dL Glucose 112 H (74-99) mg/dL Assessment and Plan Assessment: -Cervical spondylosis -C3-C6 stenosis -Bilateral upper extremity weakness Plan: -Appreciate wound care center consultant and team management. -Surgery scheduled for today 10/19/22 C3-C6 Anterior and posterior decompression and fusion - NPO since MN - Hold Lovenox and aspirin -Activity: Ambulate QID, OOB all meals, up and about. Use walker or cane if needed for stability. -Daily PT/OT, increase ambulation strength and balance. -Pain control: Adequate at this time -Meds: reviewed -DVT PPX: mechanical -Encourage IS 10x/hr We will continue to follow *I reviewed and discussed this case with my attending Dr. Valentin, whom has reviewed this chart and films and is in agreement with assessment and plan of care as outlined above. I have personally seen and examined the patient, performed the documentation and the assessment and plan as written. Number of minutes spent on the visit: 15m.
[2022-10-19] MEDS: lisinopriL 20 MG TAB PO SCH ×2 (10:09→21:25)
[2022-10-19] MEDS: SODIUM BICARBONATE TAB 650 MG TAB PO SCH ×3 (10:10→21:25)
[2022-10-19] MEDS: FERROUS SULFATE 325 MG TAB PO SCH (10:10)
[2022-10-19] MEDS: CHLORTHALIDONE 25 MG TAB PO SCH (10:10)
[2022-10-19] MEDS: POTASSIUM CHLORIDE ER 20 MEQ TAB.ER PO SCH (10:10)
[2022-10-19] MEDS: NICOTINE 21MG/24HR PATCH TRANSDERM SCH (10:11)
[2022-10-19] MEDS: LACTOBACILLUS ACIDOPH & BULGAR 1 EACH PACKET PO SCH (10:15)
--- NOTE | 2022-10-19 11:50 | P.PN ---
Progress Note - Text Progress Note Date: 10/19/22 Pt s/e this AM. Family at bedside. Discussed surgery again and they were on board. She continues to have clonus b/l LE although somewhat improved with steroids as well as cosme's b/l. She is weak in her hands and fulfillment associate as well as arms and her control is poor, but she has improved on steroids. I told the family we can wait on surgery if they are not wanting it, but they have decided the wanted it. We discussed further. In further investigation in her chart and with her nurse it was found that the lovenox that was supposed to be held for the patient was given this AM. We will have to postpone the case. I discussed with the family and they understand. We will recommend wean of the steroids to see how she does off of them. If her sx worsen then we will plan on OR. She will likely have to have this next week now. The family understands. We will follow
--- NOTE | 2022-10-19 14:37 | CDI ---
Documentation Clarification Form Date: 10/19/2022 2:24:12 PM From: Kelly Aguilar RN CCDS Admit Date: 10/11/2022 2:47:00 PM Patient Name: Corazon De La O Visit Number: [id number] Discharge Date: ATTENTION: The Clinical Documentation Specialists (CDI) and [facility] Coding Staff appreciate your assistance in clarifying documentation. Please respond to the clarification below the line at the bottom and electronically sign. The CDI & [facility] Coding staff will review the response and follow-up if needed. Please note: Queries are made part of the Legal Health Record. If you have any questions, please contact the author of this message via ITS. Dr. Bassem Rees The patient presented with the following clinical indicators. Additional clarification regarding the etiology/cause of the clinical indicators is requested. History/Risk Factors: 77-year-old female presents to the ED via EMS for weakness unable to get out of bed, vomiting and not eating the last two days. Medical History: COPD, HTN, Pulmonary fibrosis, Incontinence, Cigarette smoker and cognitive impairment. 10/11, H&P> Clinical Indicators: Labs: 10/11 Wbc 22.71; Neutrophils 19.90 Lactic acid: 10/11 1.9 Blood cultures: 10/11 No growth after 144 hours Urine culture: 10/11 Proteus mirabilis Vitals signs: 10/11 B/P 93/52; HR 92; Temp 100.3 F Oral; RR 18; SpO2 90% room air Treatment: 10/11 Tylenol 1,000mg PO x 1 Antibiotics: 10/11 Ceftriaxone IVPB x 1; 10/14 Ceftriaxone IVPB Q12H IV Bolus:10/11 0.9NS 1L IV Bolus x 2 In your professional opinion, please clarify if these findings signify one of the following conditions: [ ] Sepsis POA [ ] Sepsis ruled out [ ] Other, please specify [ ] Unable to determine SIRS Criteria: 2 or more of the following may indicate SIRS -Temperature < 96.8F (36C) or > 101.0F (38.3C) -Heart Rate > 90 bpm -Respiratory Rate > 20 breaths/min or PaCO2 < 32 mmHg -White Blood Cell Count > 12,000 or < 4,000 cells/mm3 or > 10% bands ____Sepsis, POA _ (Template Last Reviewed: October 2020) KELSIED
--- NOTE | 2022-10-19 14:55 | CDI ---
Documentation Clarification Form Date: 10/19/2022 2:39:32 PM From: Kelly Aguilar RN CCDS Admit Date: 10/11/2022 2:47:00 PM Patient Name: Corazon De La O Visit Number: [id number] Discharge Date: ATTENTION: The Clinical Documentation Specialists (CDI) and [facility] Coding Staff appreciate your assistance in clarifying documentation. Please respond to the clarification below the line at the bottom and electronically sign. The CDI & [facility] Coding staff will review the response and follow-up if needed. Please note: Queries are made part of the Legal Health Record. If you have any questions, please contact the author of this message via ITS. Dr. Bassem Rees Malnutrition is documented 10/11,H&P. Additional clarification regarding the severity of malnutrition is requested. History/Risk Factors: 77-year-old female presents to the ED via EMS for weakness unable to get out of bed, vomiting and not eating the last two days. Medical History: COPD, HTN, Pulmonary fibrosis, Incontinence, Cigarette smoker and cognitive impairment. 10/11, H&P. Clinical Indicators: Current BMI:23.3kg RD Consult Assessment: Weight: 63.503kg, Height 5ft 5in, BMI 23.3, Body mass Normal, Calculated Eaton body weight: 56.8kg, 112% Eaton body weight , Usual weight 52.617kg, % usual body weight 121%. Patient states recent weight gain of 24# x 1 month Estimated Nutritional Needs: Kcals: Energy formula for estimated nutritional needs: 25-30 Kcals/Kg: Energy Needs 1587 1905. Estimated Protein Needs: Estimated Protein range: 0.8 1.0grams/kg: Estimated protein 51-64 Estimated fluid needs 1ml/kcal; Estimated fluid 1587 Nutritional Assessment: Intake Good 50-75% consumed. 63% average of meals, chopped diet, heart healthy. 10/11, H&P: Patient reclining in bed, awake, tired. Loss of Muscle mass and loss of subcutaneous tissue fat. : Treatment: Diet chopped diet; heart healthy. Encouraged patient to increase intake Dietary Consult: see above Supplements: Ensure Enlive TID Please clarify the type of malnutrition, if known: [ ] Severe Protein-Calorie Malnutrition [ ] Other condition, please specify [ ] Unable to Determine Please see my dictation. Already protein calorie malnutrition status identified (Template Last Revised: November 2020) MTDD
--- NOTE | 2022-10-19 17:23 | P.PN ---
Progress Note - Text Progress Note Date: 10/19/22 Chief Complaint: Feeling weak This is a pleasant 77-year-old patient, follows with Dr. Riley. Chronic stable medical conditions include COPD, hypertension, , pulmonary fibrosis, hypothyroid, cognitive impairment. has a legal guardian Kina Rust. Patient lives alone and takes care of herself. In physical therapy arrived today they found the patient was weak and not able to get out of bed. Patient is started vomiting. According to the daughter to the EMS personnel patient has not been eating much for last 2 days. Weak tired rundown. Because of cognitive impairment patient not a very good historian. Had a fever of 100.4 in the ER. Urine came back infected appearing Admitted with acute UTI with cystitis, acute kidney injury from dehydration, acute medical asthenia. 10/12/2022: Sitting up in a recliner. Feeling better. Complaining of right arm weakness and neck pain from this morning. Not able to move her neck well. Was having trouble having breakfast. Concern about radiculopathy. No change in speech or lower extremity weakness. Computed tomography scan of the cervical spine x-ray also consult done. IV Solu-Medrol started. Patient is admitted for acute renal failure renal azotemia secondary to nausea or vomiting patient improved with IV fluids although patient has hyperchloremia because of which patient's IV fluids will be changed to lactated Ringer's. Patient is otherwise clinically doing well. 10/14/2022 Patient is evaluated today on medical floor. Urine culture has finalized as proteus miribilits with sensitivity to IV ceftriaxone which will be continued at this time. Orthopedics is currently recommending IV decadron and monitoring for improvement in upper extremity numbness/tingling. Patient currently is denying any radiculopathy and reports overall a significant improvement in symptoms. Brain CT is showing as possible demyelination and recommending follow up MRI. Patient is scheduled to undergo cervical spine MRI for follow up and further evaluation for severe cervical canal stenosis. She is monitored off IV fluids. White count has normalized today it is 6.29. Hemoglobin stable. Kidney function has normalized. Patient remains afebrile, heart rate of 69, and blood pressure 141/60, 97% on room air. 10/15/2022 Patient is evaluated on medical floor. She is scheduled to undergo MRI of cervical spine today. Nursing had noted episodes of bradycardia with patient dropping as low as 38 overnight. She does report that she is not feeling well today. EKG performed showing sinus amanda with sinus arrhythmia, there are no specific ST or T wave changes noted. Labs are essentially unchanged today and stable with slight drop in sodium level to 136. Her kidney function has continued to improve. TSH is normal at 0.805. She is currently not on a beta guanaco. Blood pressure was elevated up in the 170s systolic today and lisinopril has been added. Cardiology consulted for further evaluation of the bradycardia. She continues on IV decadron. 10/16/2022 Patient is evaluated today sitting up in chair, no acute events overnight. MRI is done showing severe multilevel cervical spinal stenosis with cord edema and flattening of the cord. She continues to report symptom improvement and is maintained on IV decadron. No reports of numbness or tingling to upper extremities. Patient is scheduled to undergo C3-C6 anterior and posterior decompression and fusion with Dr. Valentin on Saturday10/17/2022. She is also being followed by cardiology who are recommending to monitor patients heart rate at this time. She continues on lisinopril and blood pressure is currently 144/63. Had echocardiogram done in april of 2022 showing normal LV size and systolic funtion. There is mild pulmonary hypertension and probably PFO. Remains afebrile and on room air. 10/17/2022: I resumed care of the patient today from [facility] hospitalist. Patient sitting up in a chair. Oral intake fair. Some weakness in the arms. Surgery scheduled by Dr. Valentin this coming Saturday. 10/18/2022: Up in a chair. Eating her lunch. Pending surgery tomorrow. No new issues. IV Decadron. Blood pressure running on the higher side. Lisinopril added last night. We'll add chlorthalidone. 10/19/2022: Up in a chair. Eating lunch. Objective feeling better. Did discuss with Dr. Valentin from orthopedics. He'll be okay with patient going home and coming back further evaluation outpatient. Patient is dexamethasone is being scaled back. Also spoke to patient's daughter on the phone. Updated. She is agreeable to patient to go to rehab. Then come back with surgery at that be the case. Nurse will see if the patient can be discharged over the weekend. Dr. Hernandez spent today more than 50 minutes. Active Medications Acetaminophen (Acetaminophen Tab 325 Mg Tab) 650 mg PO Q6HR PRN PRN Reason: Mild Pain or Fever > 100.5 Last Admin: 10/14/22 21:05 Dose: 650 mg Aspirin (Aspirin 81 Mg) 81 mg PO DAILY [facility] Last Admin: 10/19/22 10:10 Dose: 81 mg Atorvastatin Calcium (Atorvastatin 80 Mg Tab) 80 mg PO HS [facility] Last Admin: 10/18/22 20:19 Dose: 80 mg Calcium Carbonate/Glycine (Calcium Carbonate 500 Mg Chewable) 1,000 mg PO Q4HR PRN PRN Reason: Dyspepsia Chlorthalidone (Chlorthalidone 25 Mg Tab) 25 mg PO DAILY [facility] Last Admin: 10/19/22 10:10 Dose: 25 mg Dexamethasone Sodium Phosphate (Dexamethasone Sod Phosphate 4 Mg/Ml 1 Ml Vial) 2 mg IVP Q8HR [facility] Last Admin: 10/19/22 16:53 Dose: 2 mg Enoxaparin Sodium (Enoxaparin 40 Mg/0.4 Ml Syringe) 40 mg SQ DAILY [facility] Last Admin: 10/19/22 10:10 Dose: 40 mg Ferrous Sulfate (Ferrous Sulfate 325 Mg Tab) 325 mg PO DAILY [facility] Last Admin: 10/19/22 10:10 Dose: 325 mg Ceftriaxone Sodium 1 gm/ (Sodium Chloride) 50 mls @ 100 mls/hr IVPB Q12H [facility]; Protocol Last Admin: 10/19/22 16:36 Dose: 100 mls/hr Lactobacillus Acidoph/Bulgaricus (Lactobacillus Acidoph & Bulgar 1 Each Packet) 1 each PO DAILY [facility] Last Admin: 10/19/22 10:15 Dose: Not Given Lactulose (Lactulose 20 Gm/30 Ml Cup) 20 gm PO DAILY PRN PRN Reason: Constipation Lisinopril (Lisinopril 20 Mg Tab) 20 mg PO BID [facility] Last Admin: 10/19/22 10:09 Dose: 20 mg Loperamide HCl (Loperamide 2 Mg Cap) 2 mg PO QID PRN PRN Reason: Diarrhea Last Admin: 10/12/22 09:01 Dose: 2 mg Melatonin (Melatonin 5 Mg Tablet) 10 mg PO HS [facility] Last Admin: 10/18/22 20:20 Dose: 10 mg Naloxone HCl (Naloxone 0.4 Mg/Ml 1 Ml Vial) 0.2 mg IV Q2M PRN PRN Reason: Opioid Reversal Nicotine (Nicotine 21mg/24hr Patch) 1 patch TRANSDERM DAILY [facility] Last Admin: 10/19/22 10:11 Dose: 1 patch Ondansetron HCl (Ondansetron 4 Mg/2 Ml Vial) 4 mg IVP Q8HR PRN PRN Reason: Nausea And Vomiting Pantoprazole Sodium (Pantoprazole 40 Mg Tablet) 40 mg PO AC-BRKFST [facility] Last Admin: 10/19/22 06:15 Dose: 40 mg Phenazopyridine HCl (Phenazopyridine 100 Mg Tab) 100 mg PO TID PRN PRN Reason: See Comments Potassium Chloride (Potassium Chloride Er 20 Meq Tab.Er) 20 meq PO DAILY [facility] Last Admin: 10/19/22 10:10 Dose: 20 meq Sodium Bicarbonate (Sodium Bicarbonate Tab 650 Mg Tab) 650 mg PO TID [facility] Last Admin: 10/19/22 16:36 Dose: 650 mg Trazodone HCl (Trazodone Hcl 50 Mg Tab) 50 mg PO HS PRN PRN Reason: Insomnia Last Admin: 10/13/22 23:50 Dose: 50 mg Past medical history to include: COPD, hypertension, , pulmonary fibrosis, incontinence, cognitive impairment Social history: Lives alone. Smokes cigarettes. Has a legal guardian Layla Rust. Family supplies her with frozen meals. No alcohol. Has been smoking since a teenager. Physical examination: VITAL SIGNS: 97.7, 50, 18, 124/54, 97% room air GENERAL: Up in a chair, eating. Muscle muscle mass and loss of subcutaneous tissue fat EYES: Pupils equal. Conjunctiva normal. HEENT: External appearance of nose and ears normal, oral cavity grossly normal. NECK: JVD not raised; masses not palpable. HEART: First and second heart sounds are normal; no edema. LUNGS: Respiratory rate normal; increased breath sounds. ABDOMEN: Soft, nontender, liver spleen not palpable, no masses palpable. PSYCH: Able to answer simple questions. MUSCULOSKELETAL:No Clubbing/cyanosis;muscles-grossly intact. Evidence of OA. . Decreased muscle mass. NEUROLOGICAL: Weakness in both upper extremities. But better from initial presentation INVESTIGATIONS, reviewed in the clinical context: 10/19/2022: White count 12.5 hemoglobin 11.3 potassium 4.4 creatinine 0.81 10/15/2022: White count 8.2 hemoglobin 10.3 potassium 4.6 creatinine 0.87 10/12/2022: Bicarbonate 17 BUN 29 creatinine 1.80 Computed tomography scan cervical spine: Serum portable is multilevel DJD, including C3-C4/C4-C5/C5-C6. Variable neuroforamen stenosis. Cervical spine x-ray: Multilevel DJD changes. White count 22.7 hemoglobin 11.4 platelets 218 potassium 4.9 BUN 23 creatinine 1.95 UA positive for leukoesterase, negative for nitrite, WBC 182 Influenza type A/diabetes/RSV/COVID-19: Not detected Chest x-ray film personally reviewed by me-possible chronic fibrotic changes Assessment and plan: -Acute kidney injury, predominantly prerenal from vomiting.: Corrected IV fluids. Patient creatinine was 0.96 on 09/04/2022 -New onset of right arm radiculopathy weakness with acute neck pain. X-ray computed tomography scan showing multiple level spinal stenosis and foraminotomy narrowing.: C3-C6 stenosis. With bilateral upper extremity paresis IV Decadron 2 mg every 8. Discussion about possibly having surgery down the road. Dr. Valentin will evaluate further -Multiple level DJD cervical spine with spinal stenosis -Acute UTI with cystitis IV ceftriaxone -Essential hypertension Lisinopril 20 mg twice a day. chlorthalidone 25 mg a day. -Acute medical asthenia from renal failure Increase activity as tolerated. PTOT -Mild protein calorie micturition from decreased oral intake Ensure new -COPD in a current smoker Albuterol when necessary. -Chronic nicotine dependence, cigarette smoker Nicotine patch -Primary osteoarthritis Tylenol when necessary -Pulmonary fibrosis, chronic -Cognitive impairment. -Left ovarian cyst 2.8 cm -GERD Prilosec -Legal guardian, Kina Rust
[2022-10-19] MEDS: MELATONIN 5 MG TABLET PO SCH (21:25)
[2022-10-19] MEDS: ATORVASTATIN 80 MG TAB PO SCH (21:25)
[2022-10-20] MEDS: DEXAMETHASONE SOD PHOSPHATE 4 MG/ML 1 ML VIAL IVP SCH ×3 (00:51→15:56)
[2022-10-20] MEDS: PANTOPRAZOLE 40 MG TABLET PO SCH (05:18)
[2022-10-20] MEDS: NICOTINE 21MG/24HR PATCH TRANSDERM SCH (07:29)
[2022-10-20] MEDS: CHLORTHALIDONE 25 MG TAB PO SCH (07:29)
[2022-10-20] MEDS: FERROUS SULFATE 325 MG TAB PO SCH (07:29)
[2022-10-20] MEDS: LACTOBACILLUS ACIDOPH & BULGAR 1 EACH PACKET PO SCH (07:29)
[2022-10-20] MEDS: SODIUM BICARBONATE TAB 650 MG TAB PO SCH ×3 (07:29→20:50)
[2022-10-20] MEDS: POTASSIUM CHLORIDE ER 20 MEQ TAB.ER PO SCH (07:29)
[2022-10-20] MEDS: lisinopriL 20 MG TAB PO SCH ×2 (07:33→20:50)
--- NOTE | 2022-10-20 10:06 | P.PN ---
Subjective Progress Note Date: 10/20/22 Principal diagnosis: Cervical stenosis, bilateral upper extremity weakness Patient was examined today at bedside, Dr. Valentin was also available to examine patient. Patient feels that her symptoms in the upper extremities are slightly improved since being on steroids. We have decreased the dose of the Decadron. We discussed the possibility of surgery early next week, patient is at this time. Patient would like to again discuss with her family. Patient denies any loss of bowel or bladder control at this time. She denies any adria weakness in the lower extremities. Objective - Vital Signs Vital signs: Vital Signs Temp 98.1 F 10/20/22 06:47 Pulse 46 L 10/20/22 08:00 Resp 18 10/20/22 08:00 BP 157/65 10/20/22 06:47 Pulse Ox 97 10/20/22 06:47 FiO2 Intake & Output 10/19/22 10/20/22 10/20/22 18:59 06:59 18:59 Intake Total 50 118 Output Total 0 Balance 50 0 118 Intake: Intake, IV Titration 50 Amount cefTRIAXone 1 gm In 50 Sodium Chloride 0.9% 50 ml @ 100 mls/hr IVPB Q12H [facility] Rx#:[id number] Oral 118 Output: Urine 0 Other: Voiding Method Diaper # Voids 1 1 # Bowel Movements 1 - Exam Inspection: Negative for any open fractures, significant ecchymosis/erythema/ulcers. Patient appears to have a resting tremor in bilateral hands during exam. Sensation: Sensation is equal, symmetric, bilaterally intact throughout the upper and lower extremities. Palpation: There is some moderate tenderness to palpation over the midline at the cervical spine as well as both shoulder blades. NTTP throughout rest exam Range of motion: Patient does have limited range of motion in bilateral upper extremities in shoulder forward elevation. Patient only able to forward elevate to 95 bilaterally. Abduction and external and internal rotation are limited in the shoulders as well. Patient has full range of motion bilaterally in the elbows and wrists in flexion/extension. Patient has full range of motion in bilateral lower extremities. Motor: 4+/5 in all major motor groups in bilateral lower extremities. 4-/5 in resisted shoulder forward elevation, abduction, external/internal rotation. 4/5 in resisted bilateral elbow flexion/extension and wrist flexion/extension. Neurovascular status: Radial pulses intact, 2+ bilaterally. Cap refill under 3 seconds in digits of upper extremities. Special tests: Positive clonus bilateral lower extremity, 8-10 beats Negative Yamile bilaterally. Negative Homans bilaterally. Positive Spurling bilaterally. - Labs CBC & Chem 7: 10/19/22 03:51 10/19/22 03:51 Assessment and Plan Assessment: Bilateral upper extremity weakness Multilevel cervical spondylosis with stenosis Plan: Dr. Valentin did discuss the patient continue options for treatment at this time. We did discuss the surgical procedure briefly today at bedside. Again patient would like to discuss this with her family. We will tentatively surgery scheduled for 10/22/2022. This will allow time for the patient to discuss with her family over the next few days the option. Patient will continue on the IV steroids, we will continue to taper the IV dose during her hospital stay Other medical specialty recommendations We'll discontinue Lovenox as of 10/22/2022 with pending surgical treatment Recommend weight-bear as tolerated with walker at all times Continue to follow during inpatient stay Time with Patient: Less than 30
--- NOTE | 2022-10-20 18:00 | P.PN ---
Progress Note - Text Progress Note Date: 10/20/22 Chief Complaint: Feeling weak This is a pleasant 77-year-old patient, follows with Dr. Riley. Chronic stable medical conditions include COPD, hypertension, , pulmonary fibrosis, hypothyroid, cognitive impairment. has a legal guardian Kina Rust. Patient lives alone and takes care of herself. In physical therapy arrived today they found the patient was weak and not able to get out of bed. Patient is started vomiting. According to the daughter to the EMS personnel patient has not been eating much for last 2 days. Weak tired rundown. Because of cognitive impairment patient not a very good historian. Had a fever of 100.4 in the ER. Urine came back infected appearing Admitted with acute UTI with cystitis, acute kidney injury from dehydration, acute medical asthenia. 10/12/2022: Sitting up in a recliner. Feeling better. Complaining of right arm weakness and neck pain from this morning. Not able to move her neck well. Was having trouble having breakfast. Concern about radiculopathy. No change in speech or lower extremity weakness. Computed tomography scan of the cervical spine x-ray also consult done. IV Solu-Medrol started. Patient is admitted for acute renal failure renal azotemia secondary to nausea or vomiting patient improved with IV fluids although patient has hyperchloremia because of which patient's IV fluids will be changed to lactated Ringer's. Patient is otherwise clinically doing well. 10/14/2022 Patient is evaluated today on medical floor. Urine culture has finalized as proteus miribilits with sensitivity to IV ceftriaxone which will be continued at this time. Orthopedics is currently recommending IV decadron and monitoring for improvement in upper extremity numbness/tingling. Patient currently is denying any radiculopathy and reports overall a significant improvement in symptoms. Brain CT is showing as possible demyelination and recommending follow up MRI. Patient is scheduled to undergo cervical spine MRI for follow up and further evaluation for severe cervical canal stenosis. She is monitored off IV fluids. White count has normalized today it is 6.29. Hemoglobin stable. Kidney function has normalized. Patient remains afebrile, heart rate of 69, and blood pressure 141/60, 97% on room air. 10/15/2022 Patient is evaluated on medical floor. She is scheduled to undergo MRI of cervical spine today. Nursing had noted episodes of bradycardia with patient dropping as low as 38 overnight. She does report that she is not feeling well today. EKG performed showing sinus amanda with sinus arrhythmia, there are no specific ST or T wave changes noted. Labs are essentially unchanged today and stable with slight drop in sodium level to 136. Her kidney function has continued to improve. TSH is normal at 0.805. She is currently not on a beta guanaco. Blood pressure was elevated up in the 170s systolic today and lisinopril has been added. Cardiology consulted for further evaluation of the bradycardia. She continues on IV decadron. 10/16/2022 Patient is evaluated today sitting up in chair, no acute events overnight. MRI is done showing severe multilevel cervical spinal stenosis with cord edema and flattening of the cord. She continues to report symptom improvement and is maintained on IV decadron. No reports of numbness or tingling to upper extremities. Patient is scheduled to undergo C3-C6 anterior and posterior decompression and fusion with Dr. Valentin on Saturday10/17/2022. She is also being followed by cardiology who are recommending to monitor patients heart rate at this time. She continues on lisinopril and blood pressure is currently 144/63. Had echocardiogram done in april of 2022 showing normal LV size and systolic funtion. There is mild pulmonary hypertension and probably PFO. Remains afebrile and on room air. 10/17/2022: I resumed care of the patient today from [facility] hospitalist. Patient sitting up in a chair. Oral intake fair. Some weakness in the arms. Surgery scheduled by Dr. Valentin this coming Saturday. 10/18/2022: Up in a chair. Eating her lunch. Pending surgery tomorrow. No new issues. IV Decadron. Blood pressure running on the higher side. Lisinopril added last night. We'll add chlorthalidone. 10/19/2022: Up in a chair. Eating lunch. Objective feeling better. Did discuss with Dr. Valentin from orthopedics. He'll be okay with patient going home and coming back further evaluation outpatient. Patient is dexamethasone is being scaled back. Also spoke to patient's daughter on the phone. Updated. She is agreeable to patient to go to rehab. Then come back with surgery at that be the case. Nurse will see if the patient can be discharged over the weekend. Dr. Henrandez spent today more than 50 minutes. 10/20/2022: Up in a chair. Dr. Valentin is decided to proceed with surgery on Saturday. He spoke to the patient. Patient able to feed herself. Will DC IV ceftriaxone after today. Dexamethasone 2 mg every 8. Active Medications Acetaminophen (Acetaminophen Tab 325 Mg Tab) 650 mg PO Q6HR PRN PRN Reason: Mild Pain or Fever > 100.5 Last Admin: 10/14/22 21:05 Dose: 650 mg Aspirin (Aspirin 81 Mg) 81 mg PO DAILY [facility] Last Admin: 10/19/22 10:10 Dose: 81 mg Atorvastatin Calcium (Atorvastatin 80 Mg Tab) 80 mg PO HS [facility] Last Admin: 10/19/22 21:25 Dose: 80 mg Calcium Carbonate/Glycine (Calcium Carbonate 500 Mg Chewable) 1,000 mg PO Q4HR PRN PRN Reason: Dyspepsia Chlorthalidone (Chlorthalidone 25 Mg Tab) 25 mg PO DAILY [facility] Last Admin: 10/20/22 07:29 Dose: 25 mg Dexamethasone Sodium Phosphate (Dexamethasone Sod Phosphate 4 Mg/Ml 1 Ml Vial) 2 mg IVP Q8HR [facility] Last Admin: 10/20/22 15:56 Dose: 2 mg Enoxaparin Sodium (Enoxaparin 40 Mg/0.4 Ml Syringe) 40 mg SQ DAILY [facility] Last Admin: 10/19/22 10:10 Dose: 40 mg Ferrous Sulfate (Ferrous Sulfate 325 Mg Tab) 325 mg PO DAILY [facility] Last Admin: 10/20/22 07:29 Dose: 325 mg Lactobacillus Acidoph/Bulgaricus (Lactobacillus Acidoph & Bulgar 1 Each Packet) 1 each PO DAILY [facility] Last Admin: 10/20/22 07:29 Dose: 1 each Lactulose (Lactulose 20 Gm/30 Ml Cup) 20 gm PO DAILY PRN PRN Reason: Constipation Lisinopril (Lisinopril 20 Mg Tab) 20 mg PO BID [facility] Last Admin: 10/20/22 07:33 Dose: 20 mg Loperamide HCl (Loperamide 2 Mg Cap) 2 mg PO QID PRN PRN Reason: Diarrhea Last Admin: 10/12/22 09:01 Dose: 2 mg Melatonin (Melatonin 5 Mg Tablet) 10 mg PO HS [facility] Last Admin: 10/19/22 21:25 Dose: 10 mg Naloxone HCl (Naloxone 0.4 Mg/Ml 1 Ml Vial) 0.2 mg IV Q2M PRN PRN Reason: Opioid Reversal Nicotine (Nicotine 21mg/24hr Patch) 1 patch TRANSDERM DAILY [facility] Last Admin: 10/20/22 07:29 Dose: 1 patch Ondansetron HCl (Ondansetron 4 Mg/2 Ml Vial) 4 mg IVP Q8HR PRN PRN Reason: Nausea And Vomiting Pantoprazole Sodium (Pantoprazole 40 Mg Tablet) 40 mg PO AC-BRKFST [facility] Last Admin: 10/20/22 05:18 Dose: 40 mg Phenazopyridine HCl (Phenazopyridine 100 Mg Tab) 100 mg PO TID PRN PRN Reason: See Comments Potassium Chloride (Potassium Chloride Er 20 Meq Tab.Er) 20 meq PO DAILY [facility] Last Admin: 10/20/22 07:29 Dose: 20 meq Sodium Bicarbonate (Sodium Bicarbonate Tab 650 Mg Tab) 650 mg PO TID [facility] Last Admin: 10/20/22 15:44 Dose: 650 mg Trazodone HCl (Trazodone Hcl 50 Mg Tab) 50 mg PO HS PRN PRN Reason: Insomnia Last Admin: 10/13/22 23:50 Dose: 50 mg Past medical history to include: COPD, hypertension, , pulmonary fibrosis, incontinence, cognitive impairment Social history: Lives alone. Smokes cigarettes. Has a legal guardian Lyala Rust. Family supplies her with frozen meals. No alcohol. Has been smoking since a teenager. Physical examination: VITAL SIGNS: 97.6, 51, 17, 112 x 61, 98% room air GENERAL: Up in a chair, comfortable. Muscle muscle mass and loss of subcutaneous tissue fat EYES: Pupils equal. Conjunctiva normal. HEENT: External appearance of nose and ears normal, oral cavity grossly normal. NECK: JVD not raised; masses not palpable. HEART: First and second heart sounds are normal; no edema. LUNGS: Respiratory rate normal; increased breath sounds. ABDOMEN: Soft, nontender, liver spleen not palpable, no masses palpable. PSYCH: Able to answer simple questions. MUSCULOSKELETAL:No Clubbing/cyanosis;muscles-grossly intact. Evidence of OA. . Decreased muscle mass. NEUROLOGICAL: Weakness in both upper extremities. But better from initial presentation INVESTIGATIONS, reviewed in the clinical context: 10/19/2022: White count 12.5 hemoglobin 11.3 potassium 4.4 creatinine 0.81 Computed tomography scan cervical spine: Serum portable is multilevel DJD, including C3-C4/C4-C5/C5-C6. Variable neuroforamen stenosis. Cervical spine x-ray: Multilevel DJD changes. White count 22.7 hemoglobin 11.4 platelets 218 potassium 4.9 BUN 23 creatinine 1.95 UA positive for leukoesterase, negative for nitrite, WBC 182 Influenza type A/diabetes/RSV/COVID-19: Not detected Chest x-ray film personally reviewed by me-possible chronic fibrotic changes Assessment and plan: -Acute kidney injury, predominantly prerenal from vomiting.: Corrected IV fluids. Patient creatinine was 0.96 on 09/04/2022 -New onset of right arm radiculopathy weakness with acute neck pain. X-ray computed tomography scan showing multiple level spinal stenosis and foraminotomy narrowing.: C3-C6 stenosis. With bilateral upper extremity paresis IV Decadron 2 mg every 8. Surgery now being scheduled for Saturday. By Dr. 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 Asymptomatic -Essential hypertension Lisinopril 20 mg twice a day. chlorthalidone 25 mg a day. -Acute medical asthenia from renal failure Increase activity as tolerated. PTOT -Mild protein calorie micturition from decreased oral intake Ensure new -COPD in a current smoker Albuterol when necessary. -Chronic nicotine dependence, cigarette smoker Nicotine patch -Primary osteoarthritis Tylenol when necessary -Pulmonary fibrosis, chronic -Cognitive impairment. -Left ovarian cyst 2.8 cm -GERD Prisisisec -Legal guardian, Kina Rust
[2022-10-20] MEDS: MELATONIN 5 MG TABLET PO SCH (20:50)
[2022-10-20] MEDS: ATORVASTATIN 80 MG TAB PO SCH (20:50)
[2022-10-21] MEDS: DEXAMETHASONE SOD PHOSPHATE 4 MG/ML 1 ML VIAL IVP SCH ×3 (00:19→16:55)
[2022-10-21] MEDS: ACETAMINOPHEN TAB 325 MG TAB PO PRN (05:50)
[2022-10-21] MEDS: PANTOPRAZOLE 40 MG TABLET PO SCH (07:46)
[2022-10-21] MEDS: LACTOBACILLUS ACIDOPH & BULGAR 1 EACH PACKET PO SCH (07:46)
[2022-10-21] MEDS: POTASSIUM CHLORIDE ER 20 MEQ TAB.ER PO SCH (07:46)
[2022-10-21] MEDS: SODIUM BICARBONATE TAB 650 MG TAB PO SCH ×3 (07:46→20:54)
[2022-10-21] MEDS: ASPIRIN 81 MG PO SCH (07:47)
[2022-10-21] MEDS: NICOTINE 21MG/24HR PATCH TRANSDERM SCH (07:47)
[2022-10-21] MEDS: ENOXAPARIN 40 MG/0.4 ML SYRINGE SQ SCH ×2 (07:47→07:51)
[2022-10-21] MEDS: CHLORTHALIDONE 25 MG TAB PO SCH (07:47)
[2022-10-21] MEDS: lisinopriL 20 MG TAB PO SCH ×2 (07:47→20:54)
--- NOTE | 2022-10-21 09:19 | P.PN ---
Subjective Progress Note Date: 10/21/22 Principal diagnosis: Cervical stenosis, bilateral upper extremity weakness Patient was examined today at bedside. Patient was able to discuss again with her family the possibility of surgery for 10/22/2022, she would like to proceed. Patient denies any loss of bowel or bladder control at this time. She denies any adria weakness in the lower extremities. Objective - Vital Signs Vital signs: Vital Signs Temp 97.5 F L 10/21/22 08:06 Pulse 55 L 10/21/22 08:06 Resp 15 10/21/22 08:06 BP 110/48 10/21/22 08:06 Pulse Ox 100 10/21/22 08:06 FiO2 Intake & Output 10/20/22 10/21/22 10/21/22 18:59 06:59 18:59 Intake Total 243 Balance 243 Intake: Oral 243 Other: Voiding Method Diaper Toilet Diaper # Voids 1 2 # Bowel Movements 1 2 - Exam Inspection: Negative for any open fractures, significant ecc hymosis/erythema/ulcers. Patient appears to have a resting tremor in bilateral hands during exam. Sensation: Sensation is equal, symmetric, bilaterally intact throughout the upper and lower extremities. Palpation: There is some moderate tenderness to palpation over the midline at the cervical spine as well as both shoulder blades. NTTP throughout rest exam Range of motion: Patient does have limited range of motion in bilateral upper extremities in shoulder forward elevation. Patient only able to forward elevate to 95 bilaterally. Abduction and external and internal rotation are limited in the shoulders as well. Patient has full range of motion bilaterally in the elbows and wrists in flexion/extension. Patient has full range of motion in bilateral lower extremities. Motor: 4+/5 in all major motor groups in bilateral lower extremities. 4-/5 in resisted shoulder forward elevation, abduction, external/internal rotation. 4/5 in resisted bilateral elbow flexion/extension and wrist flexion/extension. Neurovascular status: Radial pulses intact, 2+ bilaterally. Cap refill under 3 seconds in digits of upper extremities. Special tests: Positive clonus bilateral lower extremity, 8-10 beats Negative Yamile bilaterally. Negative Homans bilaterally. Positive Spurling bilatera lly. - Labs CBC & Chem 7: 10/19/22 03:51 10/19/22 03:51 Assessment and Plan Assessment: Bilateral upper extremity weakness Multilevel cervical spondylosis with stenosis Plan: Patient scheduled for surgery for 10/22/2022 Nothing by mouth after midnight Patient will continue on the IV steroids, we will continue to taper the IV dose during her hospital stay Other medical specialty recommendations Recommend weight-bear as tolerated with walker at all times Continue to follow during inpatient stay Time with Patient: Less than 30
[2022-10-21] MEDS: MELATONIN 5 MG TABLET PO SCH (20:53)
[2022-10-21] MEDS: ATORVASTATIN 80 MG TAB PO SCH (20:54)
--- NOTE | 2022-10-21 21:21 | P.PN ---
Progress Note - Text Progress Note Date: 10/21/22 Chief Complaint: Feeling weak This is a pleasant 77-year-old patient, follows with Dr. Riley. Chronic stable medical conditions include COPD, hypertension, , pulmonary fibrosis, hypothyroid, cognitive impairment. has a legal guardian Kina Rust. Patient lives alone and takes care of herself. In physical therapy arrived today they found the patient was weak and not able to get out of bed. Patient is started vomiting. According to the daughter to the EMS personnel patient has not been eating much for last 2 days. Weak tired rundown. Because of cognitive impairment patient not a very good historian. Had a fever of 100.4 in the ER. Urine came back infected appearing Admitted with acute UTI with cystitis, acute kidney injury from dehydration, acute medical asthenia. 10/12/2022: Sitting up in a recliner. Feeling better. Complaining of right arm weakness and neck pain from this morning. Not able to move her neck well. Was having trouble having breakfast. Concern about radiculopathy. No change in speech or lower extremity weakness. Computed tomography scan of the cervical spine x-ray also consult done. IV Solu-Medrol started. Patient is admitted for acute renal failure renal azotemia secondary to nausea or vomiting patient improved with IV fluids although patient has hyperchloremia because of which patient's IV fluids will be changed to lactated Ringer's. Patient is otherwise clinically doing well. 10/14/2022 Patient is evaluated today on medical floor. Urine culture has finalized as proteus miribilits with sensitivity to IV ceftriaxone which will be continued at this time. Orthopedics is currently recommending IV decadron and monitoring for improvement in upper extremity numbness/tingling. Patient currently is denying any radiculopathy and reports overall a significant improvement in symptoms. Brain CT is showing as possible demyelination and recommending follow up MRI. Patient is scheduled to undergo cervical spine MRI for follow up and further evaluation for severe cervical canal stenosis. She is monitored off IV fluids. White count has normalized today it is 6.29. Hemoglobin stable. Kidney function has normalized. Patient remains afebrile, heart rate of 69, and blood pressure 141/60, 97% on room air. 10/15/2022 Patient is evaluated on medical floor. She is scheduled to undergo MRI of cervical spine today. Nursing had noted episodes of bradycardia with patient dropping as low as 38 overnight. She does report that she is not feeling well today. EKG performed showing sinus amanda with sinus arrhythmia, there are no specific ST or T wave changes noted. Labs are essentially unchanged today and stable with slight drop in sodium level to 136. Her kidney function has continued to improve. TSH is normal at 0.805. She is currently not on a beta guanaco. Blood pressure was elevated up in the 170s systolic today and lisinopril has been added. Cardiology consulted for further evaluation of the bradycardia. She continues on IV decadron. 10/16/2022 Patient is evaluated today sitting up in chair, no acute events overnight. MRI is done showing severe multilevel cervical spinal stenosis with cord edema and flattening of the cord. She continues to report symptom improvement and is maintained on IV decadron. No reports of numbness or tingling to upper extremities. Patient is scheduled to undergo C3-C6 anterior and posterior decompression and fusion with Dr. Valentin on Saturday10/17/2022. She is also being followed by cardiology who are recommending to monitor patients heart rate at this time. She continues on lisinopril and blood pressure is currently 144/63. Had echocardiogram done in april of 2022 showing normal LV size and systolic funtion. There is mild pulmonary hypertension and probably PFO. Remains afebrile and on room air. 10/17/2022: I resumed care of the patient today from [facility] hospitalist. Patient sitting up in a chair. Oral intake fair. Some weakness in the arms. Surgery scheduled by Dr. Valentin this coming Saturday. 10/18/2022: Up in a chair. Eating her lunch. Pending surgery tomorrow. No new issues. IV Decadron. Blood pressure running on the higher side. Lisinopril added last night. We'll add chlorthalidone. 10/19/2022: Up in a chair. Eating lunch. Objective feeling better. Did discuss with Dr. Valentin from orthopedics. He'll be okay with patient going home and coming back further evaluation outpatient. Patient is dexamethasone is being scaled back. Also spoke to patient's daughter on the phone. Updated. She is agreeable to patient to go to rehab. Then come back with surgery at that be the case. Nurse will see if the patient can be discharged over the weekend. Dr. Hernandez spent today more than 50 minutes. 10/20/2022: Up in a chair. Dr. Valentin is decided to proceed with surgery on Saturday. He spoke to the patient. Patient able to feed herself. Will DC IV ceftriaxone after today. Dexamethasone 2 mg every 8. 10/21/2022: Up in a chair. Comfortable. Scheduled for surgery tomorrow. No new issues. Decadron 2 mg every 8. Active Medications Acetaminophen (Acetaminophen Tab 325 Mg Tab) 650 mg PO Q6HR PRN PRN Reason: Mild Pain or Fever > 100.5 Last Admin: 10/21/22 05:50 Dose: 650 mg Aspirin (Aspirin 81 Mg) 81 mg PO DAILY [facility] Last Admin: 10/21/22 07:47 Dose: 81 mg Atorvastatin Calcium (Atorvastatin 80 Mg Tab) 80 mg PO HS [facility] Last Admin: 10/21/22 20:54 Dose: 80 mg Calcium Carbonate/Glycine (Calcium Carbonate 500 Mg Chewable) 1,000 mg PO Q4HR PRN PRN Reason: Dyspepsia Chlorthalidone (Chlorthalidone 25 Mg Tab) 25 mg PO DAILY [facility] Last Admin: 10/21/22 07:47 Dose: 25 mg Dexamethasone Sodium Phosphate (Dexamethasone Sod Phosphate 4 Mg/Ml 1 Ml Vial) 2 mg IVP Q8HR [facility] Last Admin: 10/21/22 16:55 Dose: 2 mg Ferrous Sulfate (Ferrous Sulfate 325 Mg Tab) 325 mg PO DAILY [facility] Last Admin: 10/20/22 07:29 Dose: 325 mg Lactobacillus Acidoph/Bulgaricus (Lactobacillus Acidoph & Bulgar 1 Each Packet) 1 each PO DAILY [facility] Last Admin: 10/21/22 07:46 Dose: 1 each Lactulose (Lactulose 20 Gm/30 Ml Cup) 20 gm PO DAILY PRN PRN Reason: Constipation Lisinopril (Lisinopril 20 Mg Tab) 20 mg PO BID [facility] Last Admin: 10/21/22 20:54 Dose: 20 mg Loperamide HCl (Loperamide 2 Mg Cap) 2 mg PO QID PRN PRN Reason: Diarrhea Last Admin: 10/12/22 09:01 Dose: 2 mg Melatonin (Melatonin 5 Mg Tablet) 10 mg PO [facility] Last Admin: 10/21/22 20:53 Dose: 10 mg Naloxone HCl (Naloxone 0.4 Mg/Ml 1 Ml Vial) 0.2 mg IV Q2M PRN PRN Reason: Opioid Reversal Nicotine (Nicotine 21mg/24hr Patch) 1 patch TRANSDERM DAILY [facility] Last Admin: 10/21/22 07:47 Dose: 1 patch Ondansetron HCl (Ondansetron 4 Mg/2 Ml Vial) 4 mg IVP Q8HR PRN PRN Reason: Nausea And Vomiting Last Admin: 10/21/22 17:52 Dose: 4 mg Pantoprazole Sodium (Pantoprazole 40 Mg Tablet) 40 mg PO AC-BRKFST [facility] Last Admin: 10/21/22 07:46 Dose: 40 mg Phenazopyridine HCl (Phenazopyridine 100 Mg Tab) 100 mg PO TID PRN PRN Reason: See Comments Potassium Chloride (Potassium Chloride Er 20 Meq Tab.Er) 20 meq PO DAILY [facility] Last Admin: 10/21/22 07:46 Dose: 20 meq Sodium Bicarbonate (Sodium Bicarbonate Tab 650 Mg Tab) 650 mg PO TID [facility] Last Admin: 10/21/22 20:54 Dose: 650 mg Trazodone HCl (Trazodone Hcl 50 Mg Tab) 50 mg PO HS PRN PRN Reason: Insomnia Last Admin: 10/13/22 23:50 Dose: 50 mg Past medical history to include: COPD, hypertension, , pulmonary fibrosis, incontinence, cognitive impairment Social history: Lives alone. Smokes cigarettes. Has a legal guardian Layla Rust. Family supplies her with frozen meals. No alcohol. Has been smoking since a teenager. Physical examination: VITAL SIGNS: 97.5, 64, 16, 140s/65, 97% room air GENERAL: Up in a chair, comfortable. Muscle muscle mass and loss of subcutaneous tissue fat EYES: Pupils equal. Conjunctiva normal. HEENT: External appearance of nose and ears normal, oral cavity grossly normal. NECK: JVD not raised; masses not palpable. HEART: First and second heart sounds are normal; no edema. LUNGS: Respiratory rate normal; increased breath sounds. ABDOMEN: Soft, nontender, liver spleen not palpable, no masses palpable. PSYCH: Able to answer simple questions. MUSCULOSKELETAL:No Clubbing/cyanosis;muscles-grossly intact. Evidence of OA. . Decreased muscle mass. NEUROLOGICAL: Weakness in both upper extremities. But better from initial presentation INVESTIGATIONS, reviewed in the clinical context: 10/19/2022: White count 12.5 hemoglobin 11.3 potassium 4.4 creatinine 0.81 Computed tomography scan cervical spine: Serum portable is multilevel DJD, including C3-C4/C4-C5/C5-C6. Variable neuroforamen stenosis. Cervical spine x-ray: Multilevel DJD changes. White count 22.7 hemoglobin 11.4 platelets 218 potassium 4.9 BUN 23 creatinine 1.95 UA positive for leukoesterase, negative for nitrite, WBC 182 Influenza type A/diabetes/RSV/COVID-19: Not detected Chest x-ray film personally reviewed by me-possible chronic fibrotic changes Assessment and plan: -Acute kidney injury, predominantly prerenal from vomiting.: Corrected IV fluids. Patient creatinine was 0.96 on 09/04/2022 -New onset of right arm radiculopathy weakness with acute neck pain. X-ray computed tomography scan showing multiple level spinal stenosis and foraminotomy narrowing.: C3-C6 stenosis. With bilateral upper extremity paresis IV Decadron 2 mg every 8. Surgery - scheduled for Saturday. By Dr. 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 Asymptomatic -Essential hypertension Lisinopril 20 mg twice a day. chlorthalidone 25 mg a day. -Acute medical asthenia from renal failure Increase activity as tolerated. PTOT -Mild protein calorie micturition from decreased oral intake Ensure new -COPD in a current smoker Albuterol when necessary. -Chronic nicotine dependence, cigarette smoker Nicotine patch -Primary osteoarthritis Tylenol when necessary -Pulmonary fibrosis, chronic -Cognitive impairment. -Left ovarian cyst 2.8 cm -GERD Twansec -Legal guardian, Kina Rust
[2022-10-22] MEDS: DEXAMETHASONE SOD PHOSPHATE 4 MG/ML 1 ML VIAL IVP SCH ×3 (00:49→19:52)
[2022-10-22] MEDS: SODIUM CHLORIDE 0.9% 1,000 ML IV SCH (08:45)
[2022-10-22] MEDS: PANTOPRAZOLE 40 MG TABLET PO SCH (12:31)
[2022-10-22] MEDS: ASPIRIN 81 MG PO SCH (12:31)
[2022-10-22] MEDS: lisinopriL 20 MG TAB PO SCH (12:32)
[2022-10-22] MEDS: SODIUM BICARBONATE TAB 650 MG TAB PO SCH ×3 (12:32→20:30)
[2022-10-22] MEDS ORDERED: IV FLUID CONTINUATION 1,000 ML IV ONE (13:14)
--- NOTE | 2022-10-22 13:29 | P.PN ---
Progress Note - Text Progress Note Date: 10/22/22 Spine Surgery Clinical and Risk Review Corazon De La O is a 77 yo female presenting for evaluation of b/l LE and LE weakness, difficulty with fine motor skills, unsteady gait, falls, neck pain. It was my pleasure to have seen and examined Corazon De La O. In our visit today we have had a chance to go over subjective complaints, physical examination findings and treatments including the natural course history without intervention and various interventional options. The patients imaging demonstrates Severe stenosis C3-6 with disc collapse, osteophytosis and severe cord compression. On physical exam, Corazon De La O demonstrates b/l UE weakness, b/l LE weakness, difficulty with fine motor skills, cannot hold a fork to eat. B/L LE clonus as well as UE Reed's. Weak property accountant and intrinsics. I have explained to the patient that as their condition progresses it will cause further neurological deficits and eventual paralysis. Based on the patients imaging, physical exam, and the rapid progression and disabling nature of their symptoms, at this time I recommend surgery in the form or a: C3-6 ACDF. I discussed the risk and benefits of this procedure at length with Corazon De La O and her family daughter and son-in-law. The patient and her daughter agreed to considered pursuing the procedure abovementioned. Prior to surgery, she should follow up with her PCP (Cardio, ID, IM etc) for clearance. Questions were invited and answered, and the patient wishes to proceed as outlined below. Currently, I am recommendin. C3-6 anterior cervical discecomty and fusion 2. Follow up with PCP for surgical clearance 3. Review of surgical risks and benefits as well as an educational packet on the proposed surgical procedure. Risks: All surgical procedures come with inherent risks, including those related to pos itioning, anesthesia, intraoperative findings, and postoperative complications. It is important to understand that surgery does not come with any guarantee of a successful outcome as complications and adverse events are always possible. The patient was given a handout in office today discussing the surgical procedure and risks associated with the intervention, both of which were discussed with the patient. These risks include but are not limited to the following: * Experiencing same, different or even worse symptoms in back, neck, arms, or legs compared to before surgery. * Requiring further surgery or other forms of treatment presently or at some time in the future at same or other levels of the intended spine surgery. * On an extreme but fortunately relatively rare basis severe complication such as blindness, stroke, heart attack, temporary and/or permanent nerve injury, paralysis, coma, or may occur, sometimes without known explanation. * Surgical complications may include but are not limited to risk of infection, fluid accumulation in the surgical dissection site, including a seroma or hematoma, that requires additional surgery, wound drainage, bleed ing, new numbness or weakness, vision changes/loss, spinal fluid leakage, non- healing and/or infected incision, headaches, difficulty or inability to swallow, hoarseness, hemopneumothorax, pneumothorax, impotence, retrograde ejaculation, vaginal dryness; injury to nerves, spinal cord, blood vessels, lymphatics or other vital organs (i.e., bowel injury, injury to the great vessels); heterotopic bone formation; complications related to the hardware such as screws, rods, cages including misplaced hardware, device failure, instrumentation at the wrong spine level, hardware fracture/breakage, or vigil rdware loosening; vertebral failure of the spinal column above or below the newly placed hardware; retained surgical instrumentations or devices and the need for further surgery. * Medical risks of the planned spine surgery include but are not limited to generalized Infections to the whole body or local areas outside of the surgical site (sepsis), heart attack, bleeding, anaphylaxis, meningitis, seizure, epilepsy, hearing loss, burn mcneil, laceration of the head or other areas of the body, bruising, hypersensitivity of the skin, bladder over distension; allergic reaction; shoulder injury related to positioning; fat, blood and air clots to other areas of the body like heart, lungs, brain; failure of internal organs such as lungs, kidneys, liver and excessive bleeding. If blood transfusions are necessary, note that transfusions may cause intolerance reactions such as anaphylaxis or other complex reactions. * Despite best efforts, the results of spine surgery might not heal in terms of bone, soft tissues such as skin, fascia, ligaments, and joints. Additionally, in order to achieve best possible results, spine surgery may be carried out beyond the initially planned levels and involve decompression, fusion including insertion of hardware at levels other than the original intended area of surgical interest change some portions of the procedure in order to ensure the best possible outcomes. * With spine surgery and spinal fusion, there are different off label uses of instrumentation (devices, implants and hardware) as well as biological substances (bone morphogenic proteins, demineralized bone matrix) as well as using extra bone from allograft sources (i.e. cadaver bone) or autograft (iliac crest bone, ribs, or the spine itself). The patient has been given information about these practices and their inherent risks and benefits. The patient has had a chance to review all the listed information, has been given print outs detailing this information, and has had all his/her questions answered to their satisfaction. It was my pleasure to have seen and examined Corazon De La O. In our visit today we have had a chance to go over my understanding of our patient's current condition, the natural course history without intervention and various interventional options. Questions were invited and answered, and the patient wishes to proceed as outlined above. I have seen and examined the patient for 25 minutes and we have spent more than 50% of the time in repeat and detailed counseling about the patient's condition, its natural course history with out and as much as can be predicted with surgery and re-review of various surgical treatment options. In conclusion, Corazon De La O and and her daughter and son-in-law who are at bedside requested we proceed with the above suggested surgery and are willing to accept risks and limitations of the suggested surgery as nature of the disease process and our best attempts at treatment for the condition. Thank you again for allowing us to be part of your patient's care. Please don't hesitate to contact me if you have any further questions. Signed and authenticated by: [facility] [address] [place] [id number]
[2022-10-22] MEDS ORDERED: DEXAMETHASONE SOD PHOSPHATE 10 MG/ML 1 ML VIAL IVP ONE (13:31)
[2022-10-22] MEDS ORDERED: ONDANSETRON 4 MG/2 ML VIAL IVP ONE (13:31)
[2022-10-22] MEDS ORDERED: GLYCOPYRROLATE 0.2 MG/ML 2 ML VIAL ONE (13:53)
[2022-10-22] MEDS ORDERED: PROPOFOL 10 MG/ML 20 ML VIAL IV ONE (13:53)
[2022-10-22] MEDS ORDERED: SUCCINYLCHOLINE CHLORIDE 200 MG/10 ML VIAL IV ONE (13:53)
[2022-10-22] MEDS ORDERED: TRANEXAMIC ACID IN NACL,ISO-OS 1,000 MG/100 ML BAG ONE (13:53)
[2022-10-22] MEDS ORDERED: LIDOCAINE 2% INJ 20 MG/ML (2 ML VIAL) ONE (13:53)
[2022-10-22] MEDS ORDERED: ALBUMIN HUMAN 5% (25gm) 500 ML VIAL IVPB ONE (13:53)
[2022-10-22] MEDS ORDERED: PHENYLEPHRINE-0.9% NACL SYG 1,000 MCG/10 ML SYRINGE ONE (13:53)
[2022-10-22] MEDS ORDERED: ePHEDrine 50 MG/ML 1 ML VIAL ONE (13:53)
[2022-10-22] MEDS ORDERED: fentaNYL (PF) 50 MCG/ML 2 ML AMP ONE (13:53)
[2022-10-22] MEDS ORDERED: LACTATED RINGERS 1,000 ML IV ONE (13:58)
[2022-10-22] MEDS ORDERED: SODIUM CHLORIDE 0.9% 50 ML with ceFAZolin 2 GM IV ONE ×2 (13:58)
[2022-10-22] MEDS: LACTOBACILLUS ACIDOPH & BULGAR 1 EACH PACKET PO SCH (14:28)
[2022-10-22] MEDS: POTASSIUM CHLORIDE ER 20 MEQ TAB.ER PO SCH (14:29)
[2022-10-22] MEDS: CHLORTHALIDONE 25 MG TAB PO SCH (14:29)
[2022-10-22] MEDS: FERROUS SULFATE 325 MG TAB PO SCH (14:29)
[2022-10-22] MEDS ORDERED: TRANEXAMIC ACID IVPB ONE ×2 (14:42)
[2022-10-22] MEDS ORDERED: [UNRECOGNIZED DRUG - OTHER] IVPB ONE ×2 (14:42)
[2022-10-22] MEDS ORDERED: SALINE IVPB ONE ×2 (14:42)
[2022-10-22] MEDS ORDERED: GELATIN SPONGE,ABSORB (LARGE) 1 EACH SPONGE TOPICAL ONE (15:11)
[2022-10-22] MEDS ORDERED: THROMBIN (BOVINE) 5,000 UNIT VIAL TOPICAL ONE (15:11)
[2022-10-22] MEDS ORDERED: SODIUM CHLORIDE 0.9% 1,000 ML IV ONE (17:00)
--- NOTE | 2022-10-22 17:51 | FL ---
Intraoperative/procedural fluoroscopic services were provided. Total fluoroscopy time is 44 seconds w ith a total of 5 submitted images to PACS. Please see the operative/procedural note for further detai ls.
--- NOTE | 2022-10-22 18:41 | P.PN ---
Progress Note - Text Progress Note Date: 10/22/22 Chief Complaint: Feeling weak This is a pleasant 77-year-old patient, follows with Dr. Riley. Chronic stable medical conditions include COPD, hypertension, , pulmonary fibrosis, hypothyroid, cognitive impairment. has a legal guardian Kina Rust. Patient lives alone and takes care of herself. In physical therapy arrived today they found the patient was weak and not able to get out of bed. Patient is started vomiting. According to the daughter to the EMS personnel patient has not been eating much for last 2 days. Weak tired rundown. Because of cognitive impairment patient not a very good historian. Had a fever of 100.4 in the ER. Urine came back infected appearing Admitted with acute UTI with cystitis, acute kidney injury from dehydration, acute medical asthenia. 10/12/2022: Sitting up in a recliner. Feeling better. Complaining of right arm weakness and neck pain from this morning. Not able to move her neck well. Was having trouble having breakfast. Concern about radiculopathy. No change in speech or lower extremity weakness. Computed tomography scan of the cervical spine x-ray also consult done. IV Solu-Medrol started. Patient is admitted for acute renal failure renal azotemia secondary to nausea or vomiting patient improved with IV fluids although patient has hyperchloremia because of which patient's IV fluids will be changed to lactated Ringer's. Patient is otherwise clinically doing well. 10/14/2022 Patient is evaluated today on medical floor. Urine culture has finalized as proteus miribilits with sensitivity to IV ceftriaxone which will be continued at this time. Orthopedics is currently recommending IV decadron and monitoring for improvement in upper extremity numbness/tingling. Patient currently is denying any radiculopathy and reports overall a significant improvement in symptoms. Brain CT is showing as possible demyelination and recommending follow up MRI. Patient is scheduled to undergo cervical spine MRI for follow up and further evaluation for severe cervical canal stenosis. She is monitored off IV fluids. White count has normalized today it is 6.29. Hemoglobin stable. Kidney function has normalized. Patient remains afebrile, heart rate of 69, and blood pressure 141/60, 97% on room air. 10/15/2022 Patient is evaluated on medical floor. She is scheduled to undergo MRI of cervical spine today. Nursing had noted episodes of bradycardia with patient dropping as low as 38 overnight. She does report that she is not feeling well today. EKG performed showing sinus amanda with sinus arrhythmia, there are no specific ST or T wave changes noted. Labs are essentially unchanged today and stable with slight drop in sodium level to 136. Her kidney function has continued to improve. TSH is normal at 0.805. She is currently not on a beta guanaco. Blood pressure was elevated up in the 170s systolic today and lisinopril has been added. Cardiology consulted for further evaluation of the bradycardia. She continues on IV decadron. 10/16/2022 Patient is evaluated today sitting up in chair, no acute events overnight. MRI is done showing severe multilevel cervical spinal stenosis with cord edema and flattening of the cord. She continues to report symptom improvement and is maintained on IV decadron. No reports of numbness or tingling to upper extremities. Patient is scheduled to undergo C3-C6 anterior and posterior decompression and fusion with Dr. Valentin on Saturday10/17/2022. She is also being followed by cardiology who are recommending to monitor patients heart rate at this time. She continues on lisinopril and blood pressure is currently 144/63. Had echocardiogram done in april of 2022 showing normal LV size and systolic funtion. There is mild pulmonary hypertension and probably PFO. Remains afebrile and on room air. 10/17/2022: I resumed care of the patient today from [facility] hospitalist. Patient sitting up in a chair. Oral intake fair. Some weakness in the arms. Surgery scheduled by Dr. Valentin this coming Saturday. 10/18/2022: Up in a chair. Eating her lunch. Pending surgery tomorrow. No new issues. IV Decadron. Blood pressure running on the higher side. Lisinopril added last night. We'll add chlorthalidone. 10/19/2022: Up in a chair. Eating lunch. Objective feeling better. Did discuss with Dr. Valentin from orthopedics. He'll be okay with patient going home and coming back further evaluation outpatient. Patient is dexamethasone is being scaled back. Also spoke to patient's daughter on the phone. Updated. She is agreeable to patient to go to rehab. Then come back with surgery at that be the case. Nurse will see if the patient can be discharged over the weekend. Dr. Hernandez spent today more than 50 minutes. 10/20/2022: Up in a chair. Dr. Valentin is decided to proceed with surgery on Saturday. He spoke to the patient. Patient able to feed herself. Will DC IV ceftriaxone after today. Dexamethasone 2 mg every 8. 10/21/2022: Up in a chair. Comfortable. Scheduled for surgery tomorrow. No new issues. Decadron 2 mg every 8. October 22: Using this morning prior to surgery.. Comfortable. No new issues. Family at the bedside. Current medications reviewed Past medical history to include: COPD, hypertension, , pulmonary fibrosis, incontinence, cognitive impairment Social history: Lives alone. Smokes cigarettes. Has a legal guardian Layla Rust. Family supplies her with frozen meals. No alcohol. Has been smoking since a teenager. Physical examination: VITAL SIGNS: 98.3, 50, 16, 10 1 x 56, 97% room air GENERAL: Comfortable Muscle muscle mass and loss of subcutaneous tissue fat EYES: Pupils equal. Conjunctiva normal. HEENT: External appearance of nose and ears normal, oral cavity grossly normal. NECK: JVD not raised; masses not palpable. HEART: First and second heart sounds are normal; no edema. LUNGS: Respiratory rate normal; increased breath sounds. ABDOMEN: Soft, nontender, liver spleen not palpable, no masses palpable. PSYCH: Able to answer simple questions. MUSCULOSKELETAL:No Clubbing/cyanosis;muscles-grossly intact. Evidence of OA. . Decreased muscle mass. NEUROLOGICAL: Weakness in both upper extremities. But better from initial presentation INVESTIGATIONS, reviewed in the clinical context: 10/19/2022: White count 12.5 hemoglobin 11.3 potassium 4.4 creatinine 0.81 Computed tomography scan cervical spine: Serum portable is multilevel DJD, including C3-C4/C4-C5/C5-C6. Variable neuroforamen stenosis. Cervical spine x-ray: Multilevel DJD changes. White count 22.7 hemoglobin 11.4 platelets 218 potassium 4.9 BUN 23 creatinine 1.95 UA positive for leukoesterase, negative for nitrite, WBC 182 Influenza type A/diabetes/RSV/COVID-19: Not detected Chest x-ray film personally reviewed by me-possible chronic fibrotic changes Assessment and plan: -Acute kidney injury, predominantly prerenal from vomiting.: Corrected IV fluids. Patient creatinine was 0.96 on 09/04/2022 -New onset of right arm radiculopathy weakness with acute neck pain. X-ray computed tomography scan showing multiple level spinal stenosis and foraminotomy narrowing.: C3-C6 stenosis. With bilateral upper extremity paresis IV Decadron 2 mg every 8. Surgery - scheduled for today. By Dr. 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 Asymptomatic -Essential hypertension Lisinopril 20 mg twice a day. chlorthalidone 25 mg a day. -Acute medical asthenia from renal failure Increase activity as tolerated. PTOT -Mild protein calorie micturition from decreased oral intake Ensure new -COPD in a current smoker Albuterol when necessary. -Chronic nicotine dependence, cigarette smoker Nicotine patch -Primary osteoarthritis Tylenol when necessary -Pulmonary fibrosis, chronic -Cognitive impairment. -Left ovarian cyst 2.8 cm -MARIAA Cox -Legal guardian, Kina Rust Scheduled for surgery today. Discussed with patient's family at the bedside.
[2022-10-22 18:46] LABS: Glucose,Whole Blood 210 mg/dL (70-110)
--- NOTE | 2022-10-22 19:17 | CT ---
EXAMINATION TYPE: CT angio head neck CT DLP: 1539.7 mGycm, Automated exposure control for dose reduction was used. DATE OF EXAM: 10/22/2022 6:54 PM COMPARISON: 10/12/2022. CLINICAL INDICATION:Female, 77 years old with history of recent trauma, trauma during sx. TECHNIQUE: Axially acquired helical CT angiogram of the head and neck was obtained with contrast. Axi al images are supplemented with 3D reconstructions which [facility] NASCET criteria used. Contrast used:65ml mL of Isovue 370 with IV Contrast, Oral contrast used: None. FINDINGS: CTA HEAD: No evidence of acute intracranial hemorrhage, mass effect, or midline shift. The ventricles, sulci, a nd cisterns are unremarkable. The visualized portions of the internal carotid arteries, middle cerebral arteries, anterior cerebral arteries, and posterior cerebral arteries are patent. There is a diminutive right A1 segment. The basilar and vertebral arteries are patent. Bilateral aphakia. Atherosclerosis of the intracranial vasculature. CTA NECK: Right Carotid System: The common carotid artery and external carotid artery are patent. The carotid bifurcation demonstrate s calcified and noncalcified plaque with at least 50% stenosis. The remaining portions of the interna l carotid artery demonstrate normal size without significant narrowing. Left Carotid System: The common carotid artery and external carotid artery are patent. The carotid bifurcation demonstrate s calcified and noncalcified plaque with at least 70% stenosis. The remaining portions of the sports internship al carotid artery demonstrate normal size without significant narrowing. Vertebral arteries are patent without evidence hemodynamically significant stenosis. There is a three-vessel aortic arch. The origins of the great vessels are patent. No evidence of hemo dynamically significant stenosis. Postsurgical changes to the cervical spine involving C3 through C6 with discectomy at these levels. S crews within the C3, C5 and C6 appear in appropriate position. Multilevel disc degeneration changes w ith osteophyte formation present. No evidence for acute fracture of the spine. Postsurgical subcutane ous gas throughout the neck. Upper thorax: Motion artifact limits evaluation there is some interstitial prominence noted throughou t the visualized lungs. IMPRESSION: 1. No evidence of dissection of the cervical internal carotid arteries or vertebral arteries. 2. No evidence of intracranial high-grade stenosis or intracranial aneurysm. 3. Calcified and noncalcified plaque at the carotid bifurcations with at least 50% stenosis on the ri ght and 70% stenosis on the left.
[2022-10-22 19:33] LABS: HCT 24.1 % (34.0-46.0); MCH 30.9 pg (25.0-35.0); MCHC 32.1 g/dL (31.0-37.0); MCV 96.1 fL (80.0-100.0); Mean Platelet Volume 9.1; Platelet Count 177 k/uL (150-450); RBC 2.51 m/uL (3.80-5.40); RDW 14.8 % (11.5-15.5); WBC 15.2 k/uL (3.8-10.6)
[2022-10-22] MEDS ORDERED: ASPIRIN 325 MG TAB PO STA (19:35)
--- NOTE | 2022-10-22 19:37 | P.PN ---
Progress Note - Text Progress Note Date: 10/22/22 Post OP: Pt s/e in ICU. She is alert awake and stable at this time. She has no neurological deficits at this time. She is able to follow commands. C collar fitting well. Dressing CDI. Anterior drain <[address] angiogram done and Spoke with Dr. Arteaga at [facility] about it. There is a small christine in the right VA and a clot that is holding without extrav. VSS are stable at this time. Family at bedside. Spoke with them extensively about plan. At this time waiting on transfer to [facility] for Neuro IR eval. Called transfer center two times. No closure yet. Awaiting acceptance from medicine on their end. [facility] Arteaga already agreed to transfer. Hard C collar at all times No BLTPP>5lbs q2 neuro checks ASA 325mg now then Daily after per Dr. Arteaga Pain control as needed Monitor drain call for exuberent out put Monitor anterior neck call for hematoma, decreased sats acutely or trouble breathing. Ice to neck and shoulders
[2022-10-22 19:42] LABS: Albumin 2.9 g/dL (3.5-5.0); Calcium 7.3 mg/dL (8.4-10.2); Magnesium 1.2 mg/dL (1.6-2.3); Potassium 4.5 mmol/L (3.5-5.1); Total Bilirubin 0.5 mg/dL (0.2-1.3); Total Protein 4.8 g/dL (6.3-8.2)
--- NOTE | 2022-10-22 19:53 | P.OP ---
Date of Procedure: 10/22/22 Preoperative Diagnosis: 1. C3-6 spondylosis with severe stenosis 2. Cervical myelopathy with UE and LE weakness 3. Neck pain 4. Complex medical patient Postoperative Diagnosis: 1. C3-6 spondylosis with severe stenosis 2. Cervical myelopathy with UE and LE weakness 3. Neck pain 4. Complex medical patient Procedure(s) Performed: 1. C3-6 anterior cervical discecomty and fusion 2. INsertion of biomechanical device x3 3. Application of non integrated anterior plate C3-6 Use of IONM Use of Microscope Implants: Kegley [place] x3 Kegley [place] Plate Anesthesia: GETA Surgeon: vA Valentin Switch House Operator #1: Sukhwinder Kelly (Was present and assisted with all aspects of the case from positioning to ) Estimated Blood Loss (ml): 900 IV fluids (ml): 2,500 Urine output (ml): 250 Pathology: none sent Condition: stable Disposition: ICU Indications for Procedure: Corazon De La O is a 77 yo female presenting for evaluation of b/l LE and LE weakness, difficulty with fine motor skills, unsteady gait, falls, neck pain. It was my pleasure to have seen and examined Corazon De La O. In our visit today we have had a chance to go over subjective complaints, physical examination findings and treatments including the natural course history without intervention and various interventional options. The patients imaging demonstrates Severe stenosis C3-6 with disc collapse, osteophytosis and severe cord compression. On physical exam, Corazon De La O demonstrates b/l UE weakness, b/l LE weakness, difficulty with fine motor skills, cannot hold a fork to eat. B/L LE clonus as well as UE Reed's. Weak offal roller and intrinsics. I have explained to the patient that as their condition progresses it will cause further neurological deficits and eventual paralysis. Based on the patients imaging, physical exam, and the rapid progression and disabling nature of their symptoms, at this time I recommend surgery in the form or a: C3-6 ACDF. I discussed the risk and benefits of this procedure at length with Corazon De La O and her family daughter and son-in-law. The patient and her daughter agreed to considered pursuing the procedure abovementioned. Prior to surgery, she should follow up with her PCP (Cardio, ID, IM etc) for clearance. Questions were invited and answered, and the patient wishes to proceed as outlined below. Currently, I am recommendin. C3-6 anterior cervical discecomty and fusion Description of Procedure: The patient was seen and examined in the preoperative area. All preoperative protocols were followed. Informed consent was obtained risks and benefits of the procedure were discussed at length. Risks including bleeding infection damage to the surrounding tissue and risk of reoperation were discussed with the patient. Risk of anesthesia up to and including was a discussed with the patient. These are outlined in the risk review. They were willing to accept these risks and all the risks of surgery. The patient was given a weight-based dose of antibiotics in the form of 2 g Ancef. The patient was seen and evaluated by the anesthesia team who deemed them fit for surgery. The site was marked, the patient was willing to proceed with the procedure. The patient was transferred to the operative suite by the Department of anesthesia. They were then drifted off to sleep by the department anesthesia and GETA was performed. The patient tolerated this well. Hidalgo catheter was placed by nursing staff, a-traumatically. Once confirmation of lines and ventilation the patient was transferred to a Supine Lavell table very carefully. All bony prominences including wrists, elbows, axilla, chest, hips, and thighs, and feet were padded very well. Special attention was paid to the genitalia, and these were padded accordingly. SCDs were placed on bilateral lower extremities and were connected. Arms were well padded and placed at their side thumbs up. Once in position, again we confirmed good ventilation capabilities and that lines were running appropriately. The patients Cervical spine was then exposed. 1010s were placed outlining the incision site. Standard alcohol was used to clean the incision site and allowed to dry. C-arm was used to bio-raimundo the patient and confirm level for incision which was marked with a skin marker. Operative briefing was performed with all teams and everyone in agreement to proceed. The patient was then prepped and draped in a normal sterile fashion. Timeout was then performed, and all parties agreed with the procedure to be performed. Transverse skin incision was then made on the right side of the patients neck 3 cm and dissection taken down to the platysma which was split transversely. Sub platysma flap was made, and interval identified between SCM and medial structures. Omohyoid was visualized and protected. Blunt dissection taken down to the anterior cervical facia which was identified. Blunt prob was then placed and lateral image taken which confirmed levels for operation. These levels were then marked with a bovi. Subperiosteal dissection of the longissimus muscles were then done over these levels identifying uncovertebral joints bilaterally. Retractor was then placed deep to these muscles and held in place with a bed arm. [place] pins were placed into C3 and C4 and gentle distraction taken out over the levels. Joan rongure used to remove disc material. Operating microscope brought in for visualization. Complete discectomy performed at this level with curette, rongure and pituitary. High speed sarwat used to remove osteophytes anteriorly and posteriorly until PLL was identified. 6-0 up curette then used to identify the canal and resect the PLL. 2-0 and 3-0 Kerrison used then to remove PLL and disc herniation and performed b/l foraminotomies. Once good decompression accomplished, meticulous hemostasis was performed. Sizers were then placed under lateral fluoroscopy until the desired height and lordosis. Cage was then selected, packed with autograft and allograft and placed under lateral imaging. Once in good position it was tested and stable. Motors run before and after cage placement were stable. The wound was irrigated, and autograft placed lateral to the cage anteriorly for fusion. [place] pin was then removed from C3 and placed into C5 and bone wax placed in their void. Gentle distraction taken out over C4-5 now. Complete discectomy done at C4-5 as described including decompression, b/l foraminotomies and PLL resection. Burring of endplates was minimal, osteophytes removed as described. Spacers were then sized and placed under lateral imaging. Cage selected, packed with graft and placed under lateral images. Once in position, meticulous hemostasis performed, and motors remained stable before and after cage placement. AP image confirmed good placement of cages. Wound was irrigated. At C5-6, [place] pins were placed into C5 and C6 and gentle distraction taken out over the levels. Joan rongure used to remove disc material. Operating microscope brought in for visualization. Complete discectomy performed at this level with curette, rongure and pituitary. High speed sarwat used to remove os teophytes anteriorly and posteriorly until PLL was identified. 6-0 up curette then used to identify the canal and resect the PLL. 2-0 and 3-0 Kerrison used then to remove PLL and disc herniation and performed b/l foraminotomies. During the foraminotomy on the right hand side after a kerrison bite we encoutered brisk bright red bleeding. A sucker tip was promptly placed over the area and then the area packed with fibrillar, surgicel and paddies. Once the bleeding was under conrol we checked with neuromonitoring and there were no changes. Anesthesia was in contact with us the entire time and she remained stable. A stat call was sent out then to Neuro IR at [facility] and spoke to Dr. Arteaga over the phone about options as we do not have Neuro IR here at [place]. Since the bleed was under control and she remained stable. We finished the last part of the case in placing a plate and securing it as she would have potential instability. Once good decompression accomplished, meticulous hemostasis was performed. Sizers were then placed under lateral fluoroscopy until the desired height and lordosis. Cage was then selected, packed with autograft and allograft and placed under lateral imaging. Once in good position it was tested and stable. Motors run before and after cage placement were stable. The wound was irrigated, and autograft placed lateral to the cage anteriorly for fusion. A separate, non-integrated plate was then selected and sized under lateral image. The plate was then placed with screws. Fixed screws drilled into C6 b/l and screws placed. Then into C5 and finally C3 skipping C4 as there was no purchase of screws. All locking mechanisms set, and all screws had good purchase. Final AP and lateral images taken confirmed good placement of ezio dware and good reduction and evangelical of height. The wound was then irrigated copiously with NSS. Surgicel placed deep in the wound. A deep drain placed out a separate incision and sewed into place. Layered closure then performed with 3-0 Vicryl in the platysma and sub-Q tissue. 2-0 Nylon placed in the skin The wound was then cleaned, and dried and skin glue placed. Once glue dried an Opifoam was placed. The patient was then transferred back to their hospital bed a-traumatically. The drain continued to hold suction. They were placed in a soft collar. They were then awakened by the department of anesthesia having tolerated the procedure well without additional complications.
[2022-10-22] MEDS ORDERED: Magnesium Replacement Protocol 1 EACH MISC MISCELLANE PRN (19:55)
[2022-10-22 20:06] LABS: HGB 7.7 gm/dL (11.4-16.0)
[2022-10-22] MEDS: MAGNESIUM SULFATE-D5W PMX 1 GM in DEXTROSE/WATER 1 100ML.BAG IVPB SCH ×3 (20:29→22:43)
[2022-10-22] MEDS: ATORVASTATIN 80 MG TAB PO SCH (20:30)
[2022-10-22 20:43] LABS: INR 1.2 (<1.2); Prothrombin Time 12.2 sec (9.0-12.0)
[2022-10-22] MEDS: NICOTINE 21MG/24HR PATCH TRANSDERM SCH (21:18)
[2022-10-22 22:02] VITALS: TEMP 97.4
[2022-10-22 22:10] VITALS: RESP 11
[2022-10-23] MEDS: MELATONIN 5 MG TABLET PO SCH (00:10)
[2022-10-23] MEDS: lisinopriL 20 MG TAB PO SCH (00:11)
[2022-10-23] MEDS: SODIUM CHLORIDE 0.9% 1,000 ML IV SCH (00:12)
[2022-10-23] MEDS: DEXAMETHASONE SOD PHOSPHATE 4 MG/ML 1 ML VIAL IVP SCH (00:14)
[2022-10-23 00:58] VITALS: BP 112/47; PULSE 54
[2022-10-23] MEDS ORDERED: ASPIRIN 325 MG TAB PO SCH (09:00)
--- NOTE | 2022-10-23 21:32 | P.DS ---
Providers Date of admission: 10/11/22 14:47 Expected date of discharge: 10/22/22 Attending physician: Bassem Rees Consults: 10/12/22 10:29 Consult Physician Routine Consulting Provider: Av Valentin Consult Reason/Comments: R arm weakness,neck pain Do you want consulting provider notified?: Yes 10/22/22 19:10 Consult Physician Routine Consulting Provider: Jasper Dietrich Consult Reason/Comments: icu management Do you want consulting provider notified?: Yes Primary care physician: Esvin Riley [facility] Course: Chief Complaint: Feeling weak This is a pleasant 77-year-old patient, follows with Dr. Riley. Chronic stable medical conditions include COPD, hypertension, , pulmonary fibrosis, hypothyroid, cognitive impairment. has a legal guardian Kina Rust. Patient lives alone and takes care of herself. In physical therapy arrived today they found the patient was weak and not able to get out of bed. Patient is started vomiting. According to the daughter to the EMS personnel patient has not been eating much for last 2 days. Weak tired rundown. Because of cognitive impairment patient not a very good historian. Had a fever of 100.4 in the ER. Urine came back infected appearing Admitted with acute UTI with cystitis, acute kidney injury from dehydration, acute medical asthenia. 10/12/2022: Sitting up in a recliner. Feeling better. Complaining of right arm weakness and neck pain from this morning. Not able to move her neck well. Was having trouble having breakfast. Concern about radiculopathy. No change in speech or lower extremity weakness. Computed tomography scan of the cervical spine x-ray also consult done. IV Solu-Medrol started. Patient is admitted for acute renal failure renal azotemia secondary to nausea or vomiting patient improved with IV fluids although patient has hyperchloremia because of which patient's IV fluids will be changed to lactated Ringer's. Patient is otherwise clinically doing well. 10/14/2022 Patient is evaluated today on medical floor. Urine culture has finalized as proteus miribilits with sensitivity to IV ceftriaxone which will be continued at this time. Orthopedics is currently recommending IV decadron and monitoring for improvement in upper extremity numbness/tingling. Patient currently is denying any radiculopathy and reports overall a significant improvement in symptoms. Brain CT is showing as possible demyelination and recommending follow up MRI. Patient is scheduled to undergo cervical spine MRI for follow up and further evaluation for severe cervical canal stenosis. She is monitored off IV fluids. White count has normalized today it is 6.29. Hemoglobin stable. Kidney function has normalized. Patient remains afebrile, heart rate of 69, and blood pressure 141/60, 97% on room air. 10/15/2022 Patient is evaluated on medical floor. She is scheduled to undergo MRI of cervical spine today. Nursing had noted episodes of bradycardia with patient dropping as low as 38 overnight. She does report that she is not feeling well today. EKG performed showing sinus amanda with sinus arrhythmia, there are no specific ST or T wave changes noted. Labs are essentially unchanged today and stable with slight drop in sodium level to 136. Her kidney function has continued to improve. TSH is normal at 0.805. She is currently not on a beta guanaco. Blood pressure was elevated up in the 170s systolic today and lisinopril has been added. Cardiology consulted for further evaluation of the bradycardia. She continues on IV decadron. 10/16/2022 Patient is evaluated today sitting up in chair, no acute events overnight. MRI is done showing severe multilevel cervical spinal stenosis with cord edema and flattening of the cord. She continues to report symptom improvement and is maintained on IV decadron. No reports of numbness or tingling to upper extremities. Patient is scheduled to undergo C3-C6 anterior and posterior decompression and fusion with Dr. Valentin on Saturday10/17/2022. She is also being followed by cardiology who are recommending to monitor patients heart rate at this time. She continues on lisinopril and blood pressure is currently 144/63. Had echocardiogram done in april of 2022 showing normal LV size and systolic funtion. There is mild pulmonary hypertension and probably PFO. Remains afebrile and on room air. 10/17/2022: I resumed care of the patient today from [facility] hospitalist. Patient sitting up in a chair. Oral intake fair. Some weakness in the arms. Surgery scheduled by Dr. Valentin this coming Saturday. 10/18/2022: Up in a chair. Eating her lunch. Pending surgery tomorrow. No new issues. IV Decadron. Blood pressure running on the higher side. Lisinopril added last night. We'll add chlorthalidone. 10/19/2022: Up in a chair. Eating lunch. Objective feeling better. Did discuss with Dr. Valentin from orthopedics. He'll be okay with patient going home and coming back further evaluation outpatient. Patient is dexamethasone is being scaled back. Also spoke to patient's daughter on the phone. Updated. She is agreeable to patient to go to rehab. Then come back with surgery at that be the case. Nurse will see if the patient can be discharged over the weekend. Dr. Hernandez spent today more than 50 minutes. 10/20/2022: Up in a chair. Dr. Valentin is decided to proceed with surgery on Saturday. He spoke to the patient. Patient able to feed herself. Will DC IV ceftriaxone after today. Dexamethasone 2 mg every 8. 10/21/2022: Up in a chair. Comfortable. Scheduled for surgery tomorrow. No new issues. Decadron 2 mg every 8. October 22: Using this morning prior to surgery.. Comfortable. No new issues. Family at the bedside. During surgical procedure there was a complication affecting the vertebral artery. Dr. Valentin's transfer the patient to [facility]. He is coordinating the transfer Current medications reviewed Past medical history to include: COPD, hypertension, , pulmonary fibrosis, incontinence, cognitive impairment Social history: Lives alone. Smokes cigarettes. Has a legal guardian Layla Rust. Family supplies her with frozen meals. No alcohol. Has been smoking since a teenager. Physical examination: VITAL SIGNS: 98.3, 50, 16, 10 1 x 56, 97% room air GENERAL: Comfortable Muscle muscle mass and loss of subcutaneous tissue fat EYES: Pupils equal. Conjunctiva normal. HEENT: External appearance of nose and ears normal, oral cavity grossly normal. NECK: JVD not raised; masses not palpable. HEART: First and second heart sounds are normal; no edema. LUNGS: Respiratory rate normal; increased breath sounds. ABDOMEN: Soft, nontender, liver spleen not palpable, no masses palpable. PSYCH: Able to answer simple questions. MUSCULOSKELETAL:No Clubbing/cyanosis;muscles-grossly intact. Evidence of OA. . Decreased muscle mass. NEUROLOGICAL: Weakness in both upper extremities. But better from initial presentation INVESTIGATIONS, reviewed in the clinical context: 10/19/2022: White count 12.5 hemoglobin 11.3 potassium 4.4 creatinine 0.81 Computed tomography scan cervical spine: Serum portable is multilevel DJD, including C3-C4/C4-C5/C5-C6. Variable neuroforamen stenosis. Cervical spine x-ray: Multilevel DJD changes. White count 22.7 hemoglobin 11.4 platelets 218 potassium 4.9 BUN 23 creatinine 1.95 UA positive for leukoesterase, negative for nitrite, WBC 182 Influenza type A/diabetes/RSV/COVID-19: Not detected Chest x-ray film personally reviewed by me-possible chronic fibrotic changes Assessment and plan: -Acute kidney injury, predominantly prerenal from vomiting.: Corrected IV fluids. Patient creatinine was 0.96 on 09/04/2022 -New onset of right arm radiculopathy weakness with acute neck pain. X-ray computed tomography scan showing multiple level spinal stenosis and foraminotomy narrowing.: C3-C6 stenosis. With bilateral upper extremity paresis IV Decadron 2 mg every 8. Surgery - scheduled for today. By Dr. 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 Asymptomatic -Essential hypertension Lisinopril 20 mg twice a day. chlorthalidone 25 mg a day. -Acute medical asthenia from renal failure Increase activity as tolerated. PTOT -Mild protein calorie micturition from decreased oral intake Ensure new -COPD in a current smoker Albuterol when necessary. -Chronic nicotine dependence, cigarette smoker Nicotine patch -Primary osteoarthritis Tylenol when necessary -Pulmonary fibrosis, chronic -Cognitive impairment. -Left ovarian cyst 2.8 cm -GERD Prilosec -Legal guardian, Kina Rust Patient being transferred to [facility] by Dr. Valentin. For neuro intervention evaluation. Surgical details in Dr. Valentin's notes. Plan - Discharge Summary Discharge Rx Participant: No New Discharge Prescriptions: No Action traZODone HCL [Desyrel] 50 mg PO HS PRN PRN Reason: Insomnia Ondansetron Odt [Zofran ODT] 4 mg PO DAILY PRN PRN Reason: Nausea Omeprazole [PriLOSEC] 20 mg PO AC-BRKFST Aspirin 81 mg PO DAILY tab Potassium Chloride [Klor-Con M20] 20 meq PO DAILY Levothyroxine Sodium [Synthroid] 25 mcg PO DAILY Ferrous Sulfate [Feosol] 325 mg PO DAILY Sodium Chloride [Saline Mist] 1 spray EA NOSTRIL DAILY L.acidoph,Paracasei, B.lactis [Probiotic] 1 cap PO DAILY Melatonin 10 mg PO HS Atorvastatin Calcium [Lipitor] 80 mg PO HS Sodium Bicarbonate 325 mg PO DAILY 3 Days #3 tablet Loperamide [Imodium] 2 mg PO QID PRN PRN Reason: Diarrhea Discharge Medication List Atorvastatin Calcium [Lipitor] 80 mg PO HS 05/16/22 [History] Omeprazole [PriLOSEC] 20 mg PO AC-BRKFST 05/16/22 [History] Ondansetron Odt [Zofran ODT] 4 mg PO DAILY PRN 05/16/22 [History] traZODone HCL [Desyrel] 50 mg PO HS PRN 05/16/22 [History] Aspirin 81 mg PO DAILY tab 05/21/22 [Rx] Sodium Bicarbonate 325 mg PO DAILY 3 Days #3 tablet 08/28/22 [Rx] Ferrous Sulfate [Feosol] 325 mg PO DAILY 10/11/22 [History] L.acidoph,Paracasei, B.lactis [Probiotic] 1 cap PO DAILY 10/11/22 [History] Levothyroxine Sodium [Synthroid] 25 mcg PO DAILY 10/11/22 [History] Loperamide [Imodium] 2 mg PO QID PRN 10/11/22 [History] Melatonin 10 mg PO HS 10/11/22 [History] Potassium Chloride [Klor-Con M20] 20 meq PO DAILY 10/11/22 [History] Sodium Chloride [Saline Mist] 1 spray EA NOSTRIL DAILY 10/11/22 [History] Follow up Appointment(s)/Referral(s): Raphael Zabala MD [STAFF PHYSICIAN] - 2 Weeks Esvin Riley MD [Primary Care Provider] - 1-2 days Discharge Disposition: OTHER INSTITUTION NOT DEFINED
== END 2022-10-23 01:04 | disposition short-term general hospital (02) | DRG 854 ==
LOC: EC 11:19 → 4SSUR 14:47 → 2SICU 10-22 17:32
PROVIDERS: ADMIT Hospitalist; ATTEND Hospitalist
PROC: 3E0333Z Introduction of Anti-inflammatory into Peripheral Vein, Percutaneous Approach (ICD-10-PCS; 2022-10-12)
PROC: 0RT30ZZ Resection of Cervical Vertebral Disc, Open Approach (ICD-10-PCS; 2022-10-22)
PROC: 0RG20A0 Fusion of 2 or more Cervical Vertebral Joints with Interbody Fusion Device, Anterior Approach, Anterior Column, Open Approach (ICD-10-PCS; principal; 2022-10-22 10:55)
DX: A41.89 Other specified sepsis (principal); E44.1 Mild protein-calorie malnutrition; I97.52 Accidental puncture and laceration of a circulatory system organ or structure during other procedure; M47.12 Other spondylosis with myelopathy, cervical region; N17.9 Acute kidney failure, unspecified; Q21.12 Patent foramen ovale; G37.9 Demyelinating disease of central nervous system, unspecified; Z16.29 Resistance to other single specified antibiotic; I27.20 Pulmonary hypertension, unspecified; M50.221 Other cervical disc displacement at C4-C5 level; N30.90 Cystitis, unspecified without hematuria; E87.8 Other disorders of electrolyte and fluid balance, not elsewhere classified; G83.89 Other specified paralytic syndromes; I11.9 Hypertensive heart disease without heart failure; J84.10 Pulmonary fibrosis, unspecified; E03.9 Hypothyroidism, unspecified; J44.9 Chronic obstructive pulmonary disease, unspecified; I07.1 Rheumatic tricuspid insufficiency; F03.B0 Unspecified dementia, moderate, without behavioral disturbance, psychotic disturbance, mood disturbance, and anxiety; R09.02 Hypoxemia; F17.210 Nicotine dependence, cigarettes, uncomplicated; M47.22 Other spondylosis with radiculopathy, cervical region; M48.02 Spinal stenosis, cervical region; B96.4 Proteus (mirabilis) (morganii) as the cause of diseases classified elsewhere; R00.1 Bradycardia, unspecified; M19.91 Primary osteoarthritis, unspecified site; N83.202 Unspecified ovarian cyst, left side; K21.9 Gastro-esophageal reflux disease without esophagitis; E78.5 Hyperlipidemia, unspecified; E86.0 Dehydration; M95.4 Acquired deformity of chest and rib; R25.8 Other abnormal involuntary movements; R26.81 Unsteadiness on feet; R29.6 Repeated falls; R53.1 Weakness; R41.89 Other symptoms and signs involving cognitive functions and awareness; R63.30 Feeding difficulties, unspecified; Y83.8 Other surgical procedures as the cause of abnormal reaction of the patient, or of later complication, without mention of misadventure at the time of the procedure; Z20.822 Contact with and (suspected) exposure to COVID-19; Z68.23 Body mass index [BMI] 23.0-23.9, adult; Z79.899 Other long term (current) drug therapy; Z79.890 Hormone replacement therapy; Z79.82 Long term (current) use of aspirin; Z91.018 Allergy to other foods; Z87.19 Personal history of other diseases of the digestive system; Z91.81 History of falling
CPT/HCPCS: 36415; 70450; 70496; 70498; 71046; 72040; 72052; 72125; 72156; 80048; 80053; 81001; 83605; 83735; 84443; 85025; 85027; 85610; 86850; 86900; 86901; 86920; 87040; 87077; 87086; 87186; 87635; 87636; 93005; 96361; 96365; 99291